=== PATIENT | male | born 1960 | race Caucasian/White ===

== ENCOUNTER 2016-08-25 17:54 | Emergency (ER) | payer MEDICARE, OTHER, SELFPAY ==
--- NOTE | 2016-08-26 01:55 | RAD ---
PORTABLE CHEST: HISTORY: Dyspnea.\ZU\ \N\ FINDINGS: Heart size is borderline. Mediastinal structures are unremarkable. The lungs are clear of infiltra edward. No signs of failure. IMPRESSION: Heart size upper limits of normal. POS: [facility]
--- NOTE | 2016-08-26 01:58 | CT ---
CT OF BRAIN PERFORMED WITHOUT CONTRAST ENHANCEMENT: HISTORY: Weakness and syncope. FINDINGS: The ventricular and cisternal system is within normal limits. There are no signs of intracerebral h emorrhage or extraaxial fluid collections. The mastoid air cells and visualized sinuses appear una r. IMPRESSION: No acute intracranial abnormalities. POS: [facility]
[2016-08-26 09:22] LABS: ALT (SGPT) 14 U/L (0-55); AST (SGOT) 18 U/L (5-34); Albumin 4.2 g/dL (3.5-5.0); Alkaline Phosphatase 91 U/L (40-150); Anion Gap 19 mmol/L (10-20); BUN (Urea Nitrogen) 14 mg/dL (8.4-25.7); Bilirubin, Total 0.3 mg/dL (0.2-1.2); Calc. Creatinine Clearance 0 mL/min (70-130); Calcium 9.6 mg/dL (7.8-10.44); Carbon Dioxide 20 mmol/L (22-29); Chloride 99 mmol/L (98-107); Estimated GFR-MDRD 52; Globulin 3.2 g/dL (2.4-3.5); Glucose 97 mg/dL (70-105); Magnesium 2.4 mg/dL (1.6-2.6); Protein, Total 7.4 g/dL (6.0-8.3); Sodium 134 mmol/L (136-145)
[2016-08-26 09:23] LABS: Troponin I Less than 0.010 ng/mL (< 0.028)
[2016-08-26 09:25] LABS: #Basophils 0.1 thou/uL (0.0-0.2); #Eosinphils 0.2 thou/uL (0.0-0.7); #Lymphocytes 2.3 thou/uL (1.20-3.40); #Monocytes 0.8 thou/uL (0.11-0.59); #Neutrophils 7.4 thou/uL (1.40-6.50); %Basophils 1.1 % (0.0-1.0); %Eosinophils 1.5 % (0.0-10.0); %Monocytes 7.8 % (0.0-10.0); %Neutrophils 68.6 % (42.0-75.0); Hemoglobin 14.8 g/dL (14.0-18.0); Mean Corpuscular HGB CONC 36.2 g/dL (32.0-36.0); Mean Corpuscular Volume 88.2 fl (80.0-94.0); Platelet Count 241 thou/uL (130-400); RBC Distribution Width 11.7 % (11.5-14.5); Red Blood Cell (RBC) Count 4.62 mill/uL (4.70-6.10); White Blood Cell (WBC) Count 10.7 thou/uL (4.8-10.8)
[2016-08-26 09:49] LABS: Bacteria/HPF None Seen HPF (None Seen); Bilirubin Negative (Negative); Blood, Urine Negative (Negative); Clarity Clear (Clear); Glucose, Urine (Dipstick) Negative (Negative); Leukocyte Negative (Negative); Nitrite Negative (Negative); Protein, Urine (Dipstick) Negative (Neg-Trace); RBC/HPF 0-3 HPF (0-3); Squamous Epithelial 0-3 HPF (0-3); Urobilinogen 0.2 mg/dL (0.2-1.0); WBC/HPF 0-3 HPF (0-3); pH, Urine 6.5 (5.0-9.0)
== END 2016-08-25 21:53 | disposition short-term general hospital (02) ==
LOC: MADERS 17:54
DX: R55 Syncope and collapse (principal); E11.9 Type 2 diabetes mellitus without complications; E78.5 Hyperlipidemia, unspecified; I11.0 Hypertensive heart disease with heart failure; I50.9 Heart failure, unspecified; W19.XXXA Unspecified fall, initial encounter
CPT/HCPCS: 36415; 70450; 71010; 80053; 81001; 82553; 83735; 83880; 84443; 84484; 85025

== ENCOUNTER 2016-08-28 06:48 | Outpatient (CLI) | payer MEDICARE, OTHER ==
[2016-08-28 07:09] LABS: #Basophils 0.1 thou/uL (0.0-0.2); #Eosinphils 0.2 thou/uL (0.0-0.7); #Lymphocytes 1.8 thou/uL (1.20-3.40); #Monocytes 0.7 thou/uL (0.11-0.59); #Neutrophils 6.2 thou/uL (1.40-6.50); %Basophils 1.4 % (0.0-1.0); %Eosinophils 2.6 % (0.0-10.0); %Monocytes 7.8 % (0.0-10.0); %Neutrophils 68.3 % (42.0-75.0); Hemoglobin 14.7 g/dL (14.0-18.0); Mean Corpuscular HGB CONC 34.2 g/dL (32.0-36.0); Mean Corpuscular Volume 90.5 fl (80.0-94.0); Mean Platelet Volume 8.9 fL (7.4-10.4); Platelet Count 243 thou/uL (130-400); RBC Distribution Width 12.2 % (11.5-14.5); Red Blood Cell (RBC) Count 4.73 mill/uL (4.70-6.10); White Blood Cell (WBC) Count 9.1 thou/uL (4.8-10.8)
[2016-08-28 07:23] LABS: Hemoglobin A1c 5.5 % (4.0-6.0)
[2016-08-28 07:28] LABS: ALT (SGPT) 11 U/L (0-55); AST (SGOT) 12 U/L (5-34); Albumin 4.2 g/dL (3.5-5.0); Alkaline Phosphatase 95 U/L (40-150); Anion Gap 17 mmol/L (10-20); BUN (Urea Nitrogen) 21 mg/dL (8.4-25.7); Bilirubin, Total 0.4 mg/dL (0.2-1.2); Calc. Creatinine Clearance 0 mL/min (70-130); Calcium 9.4 mg/dL (7.8-10.44); Carbon Dioxide 18 mmol/L (22-29); Cardiac Risk 2.9 (Less than 4.5); Chloride 105 mmol/L (98-107); Cholesterol 194 mg/dL (< 200 Desired); Estimated GFR-MDRD 54; Globulin 2.8 g/dL (2.4-3.5); Glucose 132 mg/dL (70-105); HDL Cholesterol 68 mg/dL (>60 Neg Risk); LDL Cholesterol, Calculated 91 mg/dL; Potassium 4.1 mmol/L (3.5-5.1); Sodium 136 mmol/L (136-145); Triglycerides 174 mg/dL (Less than 150)
[2016-08-28 09:06] LABS: Free T4 (Free Thyroxine) 1.14 ng/dL (0.70-1.48); Thyroid Stimulating Hormone 1.8404 uIU/mL (0.35-4.94)
[2016-08-28 17:59] LABS: Creatinine, Urine 37.36 mg/dL (63-166); Microalbumin Urine 10.2 mg/dL (0.5-50.0)
== END 2016-08-28 06:49 ==
LOC: MADLABBHPM 06:48
PROVIDERS: ATTEND Family Medicine
DX: E11.9 Type 2 diabetes mellitus without complications (principal)
CPT/HCPCS: 36415; 80053; 80061; 82043; 83036; 84439; 84443; 85025

== ENCOUNTER 2016-09-10 18:41 | Emergency (ER) | payer MEDICARE, OTHER ==
[~2016-09-10 18:41] MED LIST: Sodium Chloride 0.9% 1,000 ML BAG ONE
[2016-09-10 19:27] LABS: Bilirubin Negative (Negative); Blood, Urine Negative (Negative); Clarity Clear (Clear); Glucose, Urine (Dipstick) Negative (Negative); Leukocyte Negative (Negative); Nitrite Negative (Negative); Protein, Urine (Dipstick) Negative (Neg-Trace); Urobilinogen 0.2 mg/dL (0.2-1.0); pH, Urine 6.5 (5.0-9.0)
[2016-09-10 19:36] LABS: #Basophils 0.1 thou/uL (0.0-0.2); #Eosinphils 0.3 thou/uL (0.0-0.7); #Monocytes 0.9 thou/uL (0.11-0.59); #Neutrophils 7.6 thou/uL (1.40-6.50); %Basophils 1.2 % (0.0-1.0); %Eosinophils 2.5 % (0.0-10.0); %Lymphocytes 18.2 % (21.0-51.0); %Monocytes 7.9 % (0.0-10.0); %Neutrophils 70.2 % (42.0-75.0); Mean Corpuscular HGB CONC 35.4 g/dL (32.0-36.0); Mean Corpuscular Hemoglobin 31.2 pg (27.0-31.0); Mean Corpuscular Volume 88.1 fl (80.0-94.0); Mean Platelet Volume 8.7 fL (7.4-10.4); Platelet Count 236 thou/uL (130-400); RBC Distribution Width 11.7 % (11.5-14.5); Red Blood Cell (RBC) Count 4.17 mill/uL (4.70-6.10); White Blood Cell (WBC) Count 10.8 thou/uL (4.8-10.8)
[2016-09-10 19:50] LABS: ALT (SGPT) 19 U/L (0-55); AST (SGOT) 23 U/L (5-34); Albumin 4.2 g/dL (3.5-5.0); Alcohol Less than 10 mg/dL (Less than 10); Alkaline Phosphatase 109 U/L (40-150); Anion Gap 17 mmol/L (10-20); BUN (Urea Nitrogen) 11 mg/dL (8.4-25.7); Bilirubin, Total 0.6 mg/dL (0.2-1.2); Calc. Creatinine Clearance 0 mL/min (70-130); Calcium 9.2 mg/dL (7.8-10.44); Carbon Dioxide 21 mmol/L (22-29); Chloride 100 mmol/L (98-107); Estimated GFR-MDRD 56; Globulin 2.4 g/dL (2.4-3.5); Glucose 106 mg/dL (70-105); Potassium 3.6 mmol/L (3.5-5.1); Protein, Total 6.6 g/dL (6.0-8.3); Sodium 134 mmol/L (136-145)
[2016-09-10 19:51] LABS: Cocaine Metabolite Screen Not Detected (NotDetected); Methamphetamine Not Detected (NotDetected); Opiate Screen Not Detected (NotDetected); Phencyclidine (PCP) Not Detected (NotDetected); THC/Cannabinoid Screen Not Detected (NotDetected)
[2016-09-10 19:52] LABS: Amphetamine Not Detected (NotDetected); Barbiturates Screen Not Detected (NotDetected); Benzodiazepine Screen Not Detected (NotDetected); Medtox Control Line Valid? VALID (VALID); Methadone Not Detected (NotDetected); Oxycodone Screen Not Detected (NotDetected); Tricyclic Screen Not Detected (NotDetected)
[2016-09-10] MEDS ORDERED: Potassium Chloride 20 MEQ TAB ONE (19:57)
== END 2016-09-10 22:00 | disposition home or self-care (01) ==
LOC: MADERS 18:41
DX: F32.9 Major depressive disorder, single episode, unspecified (principal); I11.0 Hypertensive heart disease with heart failure; I50.9 Heart failure, unspecified; E78.5 Hyperlipidemia, unspecified; Z79.899 Other long term (current) drug therapy
CPT/HCPCS: 80053; 80306; 80307; 81003; 85025; 93005; 96360; 96361; J7050

== ENCOUNTER 2016-11-08 07:43 | Outpatient (CLI) | payer MEDICARE, OTHER ==
[2016-11-08 08:12] LABS: #Basophils 0.1 thou/uL (0.0-0.2); #Eosinphils 0.2 thou/uL (0.0-0.7); #Lymphocytes 1.1 thou/uL (1.20-3.40); #Monocytes 0.9 thou/uL (0.11-0.59); #Neutrophils 4.6 thou/uL (1.40-6.50); %Eosinophils 2.8 % (0.0-10.0); %Lymphocytes 16.5 % (21.0-51.0); %Monocytes 12.6 % (0.0-10.0); %Neutrophils 67.1 % (42.0-75.0); Hemoglobin 13.5 g/dL (14.0-18.0); Mean Corpuscular HGB CONC 34.8 g/dL (32.0-36.0); Mean Corpuscular Hemoglobin 32.3 pg (27.0-31.0); Mean Corpuscular Volume 92.8 fl (80.0-94.0); Mean Platelet Volume 9.4 fL (7.4-10.4); Platelet Count 133 thou/uL (130-400); RBC Distribution Width 12.9 % (11.5-14.5); Red Blood Cell (RBC) Count 4.19 mill/uL (4.70-6.10); White Blood Cell (WBC) Count 6.9 thou/uL (4.8-10.8)
[2016-11-08 08:15] LABS: Hemoglobin A1c 5.2 % (4.0-6.0)
[2016-11-08 08:24] LABS: ALT (SGPT) 17 U/L (8-55); AST (SGOT) 18 U/L (5-34); Albumin 3.9 g/dL (3.5-5.0); Alkaline Phosphatase 86 U/L (40-150); Anion Gap 15 mmol/L (10-20); BUN (Urea Nitrogen) 19 mg/dL (8.4-25.7); Bilirubin, Total 0.4 mg/dL (0.2-1.2); Calc. Creatinine Clearance 0 mL/min (70-130); Calcium 9.1 mg/dL (7.8-10.44); Carbon Dioxide 23 mmol/L (22-29); Chloride 98 mmol/L (98-107); Cholesterol 127 mg/dL (< 200 Desired); Estimated GFR-MDRD 55; Globulin 2.6 g/dL (2.4-3.5); Glucose 112 mg/dL (70-105); HDL Cholesterol 64 mg/dL (>60 Neg Risk); LDL Cholesterol, Calculated 47 mg/dL; Potassium 4.4 mmol/L (3.5-5.1); Protein, Total 6.5 g/dL (6.0-8.3); Sodium 132 mmol/L (136-145); Triglycerides 79 mg/dL (Less than 150)
[2016-11-08 08:42] LABS: Free T4 (Free Thyroxine) 1.22 ng/dL (0.70-1.48); Thyroid Stimulating Hormone 2.3128 uIU/mL (0.35-4.94)
[2016-11-08 18:12] LABS: Creatinine, Urine 27.79 mg/dL (63-166); Microalbumin Urine 1.5 mg/dL (0.5-50.0)
== END 2016-11-08 07:44 | disposition home or self-care (01) ==
LOC: MADLABBHPM 07:43
PROVIDERS: ATTEND Family Medicine
DX: E11.9 Type 2 diabetes mellitus without complications (principal)
CPT/HCPCS: 36415; 80053; 80061; 82043; 83036; 84439; 84443; 85025

== ENCOUNTER 2016-11-26 02:39 | Emergency (ER) | payer OTHER ==
[2016-11-26 03:29] LABS: #Basophils 0.2 thou/uL (0.0-0.2); #Eosinphils 0.2 thou/uL (0.0-0.7); #Lymphocytes 1.9 thou/uL (1.20-3.40); #Neutrophils 6.8 thou/uL (1.40-6.50); %Basophils 1.7 % (0.0-1.0); %Eosinophils 2.5 % (0.0-10.0); %Lymphocytes 18.7 % (21.0-51.0); %Monocytes 9.8 % (0.0-10.0); %Neutrophils 67.3 % (42.0-75.0); Hemoglobin 12.5 g/dL (14.0-18.0); Mean Corpuscular HGB CONC 35.7 g/dL (32.0-36.0); Mean Corpuscular Hemoglobin 32.2 pg (27.0-31.0); Mean Corpuscular Volume 90.2 fl (80.0-94.0); Mean Platelet Volume 8.1 fL (7.4-10.4); Platelet Count 205 thou/uL (130-400); RBC Distribution Width 11.9 % (11.5-14.5); Red Blood Cell (RBC) Count 3.87 mill/uL (4.70-6.10)
[2016-11-26 03:38] LABS: Clarity Clear (Clear)
[2016-11-26 03:39] LABS: Bilirubin Negative (Negative); Blood, Urine Negative (Negative); Glucose, Urine (Dipstick) Negative (Negative); Leukocyte Negative (Negative); Nitrite Negative (Negative); Protein, Urine (Dipstick) Negative (Neg-Trace); Specific Gravity, Urine 1.001 (1.002-1.036); Urobilinogen 0.2 mg/dL (0.2-1.0); pH, Urine 6.5 (5.0-9.0)
[2016-11-26 03:42] LABS: ALT (SGPT) 21 U/L (8-55); AST (SGOT) 36 U/L (5-34); Acetaminophen Less than 6.0 mcg/mL (10.0-30.0); Albumin 3.8 g/dL (3.5-5.0); Alcohol Less than 10 mg/dL (Less than 10); Alkaline Phosphatase 99 U/L (40-150); Anion Gap 16 mmol/L (10-20); BUN (Urea Nitrogen) 10 mg/dL (8.4-25.7); Bilirubin, Total 0.9 mg/dL (0.2-1.2); Calc. Creatinine Clearance 0 mL/min (70-130); Calcium 9.2 mg/dL (7.8-10.44); Carbon Dioxide 22 mmol/L (22-29); Chloride 98 mmol/L (98-107); Estimated GFR-MDRD 54; Globulin 2.5 g/dL (2.4-3.5); Glucose 76 mg/dL (70-105); Protein, Total 6.3 g/dL (6.0-8.3); Salicylate Less than 8.0 mg/dL (15.0-30.0); Sodium 132 mmol/L (136-145)
[2016-11-26 03:45] LABS: Amphetamine Not Detected (NotDetected); Barbiturates Screen Not Detected (NotDetected); Benzodiazepine Screen Not Detected (NotDetected); Cocaine Metabolite Screen Not Detected (NotDetected); Medtox Control Line Valid? VALID (VALID); Methadone Not Detected (NotDetected); Methamphetamine Not Detected (NotDetected); Opiate Screen Not Detected (NotDetected); Oxycodone Screen Not Detected (NotDetected); Phencyclidine (PCP) Not Detected (NotDetected); THC/Cannabinoid Screen Not Detected (NotDetected); Tricyclic Screen Not Detected (NotDetected)
== END 2016-11-26 07:20 | disposition home or self-care (01) ==
LOC: MADERS 02:39
DX: F32.9 Major depressive disorder, single episode, unspecified (principal); E78.5 Hyperlipidemia, unspecified; I11.0 Hypertensive heart disease with heart failure; I50.9 Heart failure, unspecified; F25.9 Schizoaffective disorder, unspecified
CPT/HCPCS: 80053; 80306; 80307; 81003; 84443; 85025; 93005

== ENCOUNTER 2016-11-27 19:07 | Emergency (ER) | payer OTHER ==
[2016-11-27] MEDS ORDERED: Triple Antibiotic Oint 1 GM Packet ONE (22:40)
== END 2016-11-27 22:50 | disposition home or self-care (01) ==
LOC: MADERS 19:07
DX: S90.812A Abrasion, left foot, initial encounter (principal); S90.811A Abrasion, right foot, initial encounter; E78.5 Hyperlipidemia, unspecified; I11.0 Hypertensive heart disease with heart failure; I50.9 Heart failure, unspecified; F25.9 Schizoaffective disorder, unspecified; X58.XXXA Exposure to other specified factors, initial encounter
CPT/HCPCS: 36416; 99284

== ENCOUNTER 2016-11-30 22:15 | Emergency (ER) | payer OTHER | END 2016-11-30 23:51 | disposition left against medical advice (07) | LOC: MADERS 22:15 | DX: F32.9 Major depressive disorder, single episode, unspecified (principal); N40.0 Benign prostatic hyperplasia without lower urinary tract symptoms; E78.5 Hyperlipidemia, unspecified; I11.0 Hypertensive heart disease with heart failure; I50.9 Heart failure, unspecified; F25.9 Schizoaffective disorder, unspecified | CPT/HCPCS: 36416; 93005; 99283 ==

== ENCOUNTER 2016-12-01 06:38 | Emergency (ER) | payer OTHER ==
[2016-12-01] MEDS ORDERED: Sodium Chloride 0.9% 1,000 ML BAG ONE (07:38)
[2016-12-01 07:45] LABS: #Basophils 0.1 thou/uL (0.0-0.2); #Eosinphils 0.2 thou/uL (0.0-0.7); #Lymphocytes 1.3 thou/uL (1.20-3.40); #Monocytes 0.8 thou/uL (0.11-0.59); #Neutrophils 4.5 thou/uL (1.40-6.50); %Basophils 1.4 % (0.0-1.0); %Eosinophils 2.7 % (0.0-10.0); %Lymphocytes 18.8 % (21.0-51.0); %Monocytes 11.7 % (0.0-10.0); %Neutrophils 65.5 % (42.0-75.0); Hemoglobin 12.9 g/dL (14.0-18.0); Mean Corpuscular HGB CONC 36.1 g/dL (32.0-36.0); Mean Corpuscular Hemoglobin 32.5 pg (27.0-31.0); Mean Corpuscular Volume 89.9 fl (80.0-94.0); Platelet Count 213 thou/uL (130-400); RBC Distribution Width 11.8 % (11.5-14.5); Red Blood Cell (RBC) Count 3.96 mill/uL (4.70-6.10); White Blood Cell (WBC) Count 6.9 thou/uL (4.8-10.8)
[2016-12-01 07:53] LABS: Amphetamine Not Detected (NotDetected); Barbiturates Screen Not Detected (NotDetected); Benzodiazepine Screen Not Detected (NotDetected); Bilirubin Negative (Negative); Blood, Urine Negative (Negative); Clarity Clear (Clear); Cocaine Metabolite Screen Not Detected (NotDetected); Glucose, Urine (Dipstick) Negative (Negative); Leukocyte Negative (Negative); Medtox Control Line Valid? VALID (VALID); Methadone Not Detected (NotDetected); Methamphetamine Not Detected (NotDetected); Nitrite Negative (Negative); Opiate Screen Not Detected (NotDetected); Oxycodone Screen Not Detected (NotDetected); Phencyclidine (PCP) Not Detected (NotDetected); Protein, Urine (Dipstick) 30 mg/dL (Neg-Trace); Specific Gravity, Urine 1.006 (1.002-1.036); THC/Cannabinoid Screen Not Detected (NotDetected); Tricyclic Screen Not Detected (NotDetected); Urobilinogen 0.2 mg/dL (0.2-1.0); pH, Urine 5.5 (5.0-9.0)
[2016-12-01 07:54] LABS: Bacteria/HPF None Seen HPF (None Seen); RBC/HPF 0-3 HPF (0-3); Renal Epithelial 0-3 HPF (0-3); Squamous Epithelial 0-3 HPF (0-3); Transitional Epithelial 0-3 HPF (0-3); WBC/HPF 0-3 HPF (0-3)
[2016-12-01 07:58] LABS: Acetaminophen Less than 6.0 mcg/mL (10.0-30.0); Alcohol Less than 10 mg/dL (Less than 10); Salicylate Less than 8.0 mg/dL (15.0-30.0)
[2016-12-01 08:00] LABS: ALT (SGPT) 23 U/L (8-55); AST (SGOT) 35 U/L (5-34); Alkaline Phosphatase 101 U/L (40-150); Anion Gap 18 mmol/L (10-20); BUN (Urea Nitrogen) 11 mg/dL (8.4-25.7); Bilirubin, Total 0.9 mg/dL (0.2-1.2); Calc. Creatinine Clearance 0 mL/min (70-130); Calcium 9.5 mg/dL (7.8-10.44); Carbon Dioxide 20 mmol/L (22-29); Chloride 97 mmol/L (98-107); Estimated GFR-MDRD 47; Globulin 2.6 g/dL (2.4-3.5); Glucose 93 mg/dL (70-105); Potassium 3.8 mmol/L (3.5-5.1); Protein, Total 6.6 g/dL (6.0-8.3); Sodium 131 mmol/L (136-145)
[2016-12-01] MEDS ORDERED: Acetaminophen 325 MG TAB ONE (08:49)
== END 2016-12-01 13:55 ==
LOC: MADERS 06:38
DX: R45.851 Suicidal ideations (principal); E78.5 Hyperlipidemia, unspecified; I11.0 Hypertensive heart disease with heart failure; I50.9 Heart failure, unspecified; F25.9 Schizoaffective disorder, unspecified; Z79.899 Other long term (current) drug therapy
CPT/HCPCS: 36415; 36416; 80053; 80306; 80307; 81003; 81015; 84443; 85025; 96360; J7050

== ENCOUNTER 2016-12-14 05:18 | Emergency (ER) | payer MEDICARE, OTHER ==
[2016-12-14 06:04] LABS: #Basophils 0.1 thou/uL (0.0-0.2); #Eosinphils 0.1 thou/uL (0.0-0.7); #Lymphocytes 1.2 thou/uL (1.20-3.40); #Monocytes 0.9 thou/uL (0.11-0.59); %Basophils 1.5 % (0.0-1.0); %Eosinophils 1.7 % (0.0-10.0); %Lymphocytes 16.8 % (21.0-51.0); %Monocytes 11.6 % (0.0-10.0); %Neutrophils 68.4 % (42.0-75.0); Hemoglobin 13.4 g/dL (14.0-18.0); Mean Corpuscular HGB CONC 35.1 g/dL (32.0-36.0); Mean Corpuscular Hemoglobin 31.9 pg (27.0-31.0); Mean Corpuscular Volume 90.8 fl (80.0-94.0); Mean Platelet Volume 8.1 fL (7.4-10.4); Platelet Count 183 thou/uL (130-400); Red Blood Cell (RBC) Count 4.21 mill/uL (4.70-6.10); White Blood Cell (WBC) Count 7.3 thou/uL (4.8-10.8)
[2016-12-14 06:20] LABS: ALT (SGPT) 17 U/L (8-55); AST (SGOT) 20 U/L (5-34); Acetaminophen Less than 6.0 mcg/mL (10.0-30.0); Albumin 3.8 g/dL (3.5-5.0); Alcohol 52 mg/dL (Less than 10); Alkaline Phosphatase 76 U/L (40-150); Anion Gap 16 mmol/L (10-20); BUN (Urea Nitrogen) 10 mg/dL (8.4-25.7); Bilirubin, Total Less than 0.3 mg/dL (0.2-1.2); Calc. Creatinine Clearance 0 mL/min (70-130); Calcium 8.9 mg/dL (7.8-10.44); Carbon Dioxide 20 mmol/L (22-29); Chloride 100 mmol/L (98-107); Estimated GFR-MDRD 73; Glucose 104 mg/dL (70-105); Potassium 4.1 mmol/L (3.5-5.1); Protein, Total 6.8 g/dL (6.0-8.3); Salicylate Less than 8.0 mg/dL (15.0-30.0); Sodium 132 mmol/L (136-145)
[2016-12-14 06:41] LABS: Clarity Clear (Clear)
[2016-12-14 06:42] LABS: Amphetamine Not Detected (NotDetected); Benzodiazepine Screen Not Detected (NotDetected); Bilirubin Negative (Negative); Blood, Urine Negative (Negative); Cocaine Metabolite Screen Not Detected (NotDetected); Glucose, Urine (Dipstick) Negative (Negative); Leukocyte Negative (Negative); Methamphetamine Not Detected (NotDetected); Nitrite Negative (Negative); Opiate Screen Not Detected (NotDetected); Phencyclidine (PCP) Not Detected (NotDetected); Protein, Urine (Dipstick) Negative (Neg-Trace); THC/Cannabinoid Screen Not Detected (NotDetected); Tricyclic Screen Not Detected (NotDetected); Urobilinogen 0.2 mg/dL (0.2-1.0)
[2016-12-14 06:43] LABS: Barbiturates Screen Not Detected (NotDetected); Medtox Control Line Valid? VALID (VALID); Methadone Not Detected (NotDetected); Oxycodone Screen Not Detected (NotDetected)
--- NOTE | 2016-12-14 12:55 | RAD ---
UPRIGHT PORTABLE CHEST 1 VIEW: Date: 12/14/16 HISTORY: 56-year-old male follow-up chest pain, weakness, and syncope. COMPARISON: 08/25/16. FINDINGS: Heart size is within normal limits. The lungs are clear. IMPRESSION: No acute intrathoracic disease. No evidence for pneumonia. POS: [facility]
== END 2016-12-14 14:29 ==
LOC: MADERS 05:18
DX: F32.9 Major depressive disorder, single episode, unspecified (principal); F10.10 Alcohol abuse, uncomplicated; F41.9 Anxiety disorder, unspecified; N40.0 Benign prostatic hyperplasia without lower urinary tract symptoms; I50.9 Heart failure, unspecified; I13.0 Hypertensive heart and chronic kidney disease with heart failure and stage 1 through stage 4 chronic kidney disease, or unspecified chronic kidney disease; E11.22 Type 2 diabetes mellitus with diabetic chronic kidney disease; N18.2 Chronic kidney disease, stage 2 (mild); E03.9 Hypothyroidism, unspecified; F25.9 Schizoaffective disorder, unspecified; Y90.2 Blood alcohol level of 40-59 mg/100 ml; E78.5 Hyperlipidemia, unspecified; Z98.890 Other specified postprocedural states
CPT/HCPCS: 36415; 71010; 80053; 80306; 80307; 81003; 83880; 85025; 93005

== ENCOUNTER 2017-02-11 09:36 | Outpatient (CLI) | payer MEDICARE, OTHER ==
[2017-02-11 10:13] LABS: Hemoglobin A1c 5.4 % (4.0-6.0)
[2017-02-11 10:27] LABS: ALT (SGPT) 10 U/L (8-55); AST (SGOT) 12 U/L (5-34); Albumin 3.9 g/dL (3.5-5.0); Alkaline Phosphatase 62 U/L (40-150); Anion Gap 13 mmol/L (10-20); BUN (Urea Nitrogen) 10 mg/dL (8.4-25.7); Bilirubin, Total 0.3 mg/dL (0.2-1.2); Calc. Creatinine Clearance 0 mL/min (70-130); Calcium 9.1 mg/dL (7.8-10.44); Carbon Dioxide 26 mmol/L (22-29); Chloride 94 mmol/L (98-107); Estimated GFR-MDRD 58; Globulin 2.8 g/dL (2.4-3.5); Glucose 106 mg/dL (70-105); Potassium 4.4 mmol/L (3.5-5.1); Protein, Total 6.7 g/dL (6.0-8.3); Sodium 129 mmol/L (136-145)
[2017-02-11 16:50] LABS: Valproic Acid (Depakene) 97.4 ug/mL (50.0-100.0)
== END 2017-02-11 09:37 | disposition home or self-care (01) ==
LOC: MADLABBHPM 09:36
PROVIDERS: ATTEND Family Medicine
DX: E03.9 Hypothyroidism, unspecified (principal); F20.9 Schizophrenia, unspecified
CPT/HCPCS: 36415; 80053; 80164; 83036; 84443

== ENCOUNTER 2017-02-17 14:25 | Outpatient (CLI) | payer MEDICARE, OTHER ==
[2017-02-17 14:55] LABS: Hemoglobin A1c 5.4 % (4.0-6.0)
[2017-02-17 15:42] LABS: ALT (SGPT) 11 U/L (8-55); AST (SGOT) 13 U/L (5-34); Albumin 3.9 g/dL (3.5-5.0); Alkaline Phosphatase 66 U/L (40-150); Anion Gap 13 mmol/L (10-20); BUN (Urea Nitrogen) 12 mg/dL (8.4-25.7); Bilirubin, Total 0.3 mg/dL (0.2-1.2); Calc. Creatinine Clearance 0 mL/min (70-130); Calcium 8.8 mg/dL (7.8-10.44); Carbon Dioxide 26 mmol/L (22-29); Cardiac Risk 2.3 (Less than 4.5); Chloride 91 mmol/L (98-107); Cholesterol 157 mg/dl (< 200 Desired); Estimated GFR-MDRD 56; Globulin 2.9 g/dL (2.4-3.5); Glucose 91 mg/dL (70-105); HDL Cholesterol 69 mg/dL (>60 Neg Risk); LDL Cholesterol, Calculated 44 mg/dL; Potassium 4.6 mmol/L (3.5-5.1); Protein, Total 6.8 g/dL (6.0-8.3); Sodium 125 mmol/L (136-145); Triglycerides 218 mg/dL (Less than 150)
[2017-02-18 18:41] LABS: Creatinine, Urine 24.49 mg/dL (63-166); Microalbumin Urine 1.3 mg/dL (0.5-50.0); Microalbumin/Creat Ratio 53.1 mg/g (Less than 30)
== END 2017-02-17 14:26 | disposition home or self-care (01) ==
LOC: MADLABBHPM 14:25
PROVIDERS: ATTEND Family Medicine
DX: E11.9 Type 2 diabetes mellitus without complications (principal); E78.5 Hyperlipidemia, unspecified; E03.9 Hypothyroidism, unspecified; E87.1 Hypo-osmolality and hyponatremia
CPT/HCPCS: 36415; 80053; 80061; 82043; 83036; 84443

== ENCOUNTER 2017-02-20 11:01 | Emergency (ER) | payer MEDICARE, OTHER ==
[2017-02-20 12:23] LABS: #Basophils 0.1 thou/uL (0.0-0.2); #Eosinphils 0.2 thou/uL (0.0-0.7); #Lymphocytes 1.5 thou/uL (1.20-3.40); #Monocytes 1.1 thou/uL (0.11-0.59); #Neutrophils 6.7 thou/uL (1.40-6.50); %Basophils 1.1 % (0.0-1.0); %Eosinophils 2.5 % (0.0-10.0); %Lymphocytes 15.8 % (21.0-51.0); %Neutrophils 69.7 % (42.0-75.0); Hemoglobin 12.9 g/dL (14.0-18.0); Mean Corpuscular HGB CONC 34.1 g/dL (32.0-36.0); Mean Corpuscular Hemoglobin 31.1 pg (27.0-31.0); Mean Corpuscular Volume 91.1 fl (80.0-94.0); Mean Platelet Volume 7.3 fL (7.4-10.4); Platelet Count 173 thou/uL (130-400); RBC Distribution Width 12.6 % (11.5-14.5); Red Blood Cell (RBC) Count 4.17 mill/uL (4.70-6.10); White Blood Cell (WBC) Count 9.6 thou/uL (4.8-10.8)
[2017-02-20 12:23] LABS: Clarity Clear (Clear); Glucose, Urine (Dipstick) Negative (Negative); Leukocyte Negative (Negative); Nitrite Negative (Negative); Protein, Urine (Dipstick) Negative (Neg-Trace); pH, Urine 6.5 (5.0-9.0)
[2017-02-20 12:24] LABS: Bilirubin Negative (Negative); Blood, Urine Trace (Negative); Urobilinogen 0.2 mg/dL (0.2-1.0)
[2017-02-20 12:25] LABS: Bacteria/HPF Rare-Few HPF (None Seen); RBC/HPF 0-3 HPF (0-3); Squamous Epithelial 0-3 HPF (0-3); WBC/HPF 0-3 HPF (0-3)
[2017-02-20 12:27] LABS: PTT 27.7 SEC (22.9-36.1)
[2017-02-20 12:37] LABS: ALT (SGPT) 12 U/L (8-55); AST (SGOT) 13 U/L (5-34); Albumin 3.7 g/dL (3.5-5.0); Alkaline Phosphatase 63 U/L (40-150); Anion Gap 15 mmol/L (10-20); BUN (Urea Nitrogen) 11 mg/dL (8.4-25.7); Bilirubin, Total Less than 0.3 mg/dL (0.2-1.2); CK (CPK) 183 U/L (30-200); Calc. Creatinine Clearance 0 mL/min (70-130); Calcium 8.5 mg/dL (7.8-10.44); Carbon Dioxide 23 mmol/L (22-29); Chloride 95 mmol/L (98-107); Estimated GFR-MDRD 51; Globulin 2.8 g/dL (2.4-3.5); Glucose 108 mg/dL (70-105); Potassium 4.6 mmol/L (3.5-5.1); Protein, Total 6.5 g/dL (6.0-8.3); Sodium 128 mmol/L (136-145)
[2017-02-20 12:43] LABS: CKMB 3.2 ng/mL (0-6.6); Troponin I Less than 0.010 ng/mL (< 0.028)
--- NOTE | 2017-02-20 12:44 | RAD ---
RADIOGRAPH CHEST 1 VIEW: HISTORY: A 57-year-old male with dyspnea. FINDINGS: There are no air space densities, pulmonary edema, pneumothorax, or cardiomegaly. The lateral costo phrenic angles are sharp. IMPRESSION: No acute cardiopulmonary findings. lalo [] POS: [facility]
== END 2017-02-20 13:50 | disposition home or self-care (01) ==
LOC: MADERS 11:01
DX: I13.0 Hypertensive heart and chronic kidney disease with heart failure and stage 1 through stage 4 chronic kidney disease, or unspecified chronic kidney disease (principal); N18.9 Chronic kidney disease, unspecified; D64.9 Anemia, unspecified; E87.1 Hypo-osmolality and hyponatremia; I50.9 Heart failure, unspecified; E78.5 Hyperlipidemia, unspecified
CPT/HCPCS: 36416; 71010; 80053; 81001; 82550; 82553; 83880; 84443; 84484; 85025; 85610; 85730; 87086; 93005

== ENCOUNTER 2017-02-27 08:07 | Outpatient (CLI) | payer MEDICARE, OTHER ==
[2017-02-27 09:19] LABS: Hemoglobin A1c 5.3 % (4.0-6.0)
[2017-02-27 09:28] LABS: ALT (SGPT) 14 U/L (8-55); AST (SGOT) 16 U/L (5-34); Alkaline Phosphatase 64 U/L (40-150); Anion Gap 14 mmol/L (10-20); BUN (Urea Nitrogen) 8 mg/dL (8.4-25.7); Bilirubin, Total 0.7 mg/dL (0.2-1.2); Calc. Creatinine Clearance 0 mL/min (70-130); Calcium 9.1 mg/dL (7.8-10.44); Carbon Dioxide 22 mmol/L (22-29); Chloride 93 mmol/L (98-107); Cholesterol 166 mg/dl (< 200 Desired); Estimated GFR-MDRD 52; Globulin 2.2 g/dL (2.4-3.5); Glucose 118 mg/dL (70-105); HDL Cholesterol 84 mg/dL (>60 Neg Risk); LDL Cholesterol, Calculated 69 mg/dL; Potassium 4.1 mmol/L (3.5-5.1); Protein, Total 6.2 g/dL (6.0-8.3); Sodium 125 mmol/L (136-145); Triglycerides 64 mg/dL (Less than 150)
[2017-02-27 17:14] LABS: Creatinine, Urine 27.96 mg/dL (63-166); Microalbumin Urine 2.1 mg/dL (0.5-50.0); Microalbumin/Creat Ratio 75.1 mg/g (Less than 30)
== END 2017-02-27 08:08 | disposition home or self-care (01) ==
LOC: MADLABBHPM 08:07
PROVIDERS: ATTEND Family Medicine
DX: E11.9 Type 2 diabetes mellitus without complications (principal); E78.5 Hyperlipidemia, unspecified; E03.9 Hypothyroidism, unspecified
CPT/HCPCS: 80053; 80061; 82043; 83036; 84443

== ENCOUNTER 2017-02-27 17:58 | Emergency (ER) | payer MEDICARE, OTHER ==
[~2017-02-27 17:58] MED LIST changes: -Sodium Chloride 0.9% 1,000 ML BAG ONE; +Sodium Chloride 0.9% 500 ML BAG ONE
[2017-02-27 18:58] LABS: Bilirubin Negative (Negative); Blood, Urine Negative (Negative); Clarity Clear (Clear); Glucose, Urine (Dipstick) Negative (Negative); Leukocyte Negative (Negative); Nitrite Negative (Negative); Protein, Urine (Dipstick) Negative (Neg-Trace); Urobilinogen 0.2 mg/dL (0.2-1.0)
[2017-02-27 19:09] LABS: #Basophils 0.1 thou/uL (0.0-0.2); #Eosinphils 0.1 thou/uL (0.0-0.7); #Lymphocytes 1.6 thou/uL (1.20-3.40); #Neutrophils 6.8 thou/uL (1.40-6.50); %Basophils 0.5 % (0.0-1.0); %Eosinophils 0.9 % (0.0-10.0); %Lymphocytes 16.5 % (21.0-51.0); %Monocytes 10.4 % (0.0-10.0); %Neutrophils 71.7 % (42.0-75.0); Hemoglobin 12.1 g/dL (14.0-18.0); Mean Corpuscular HGB CONC 34.4 g/dL (32.0-36.0); Mean Corpuscular Hemoglobin 30.9 pg (27.0-31.0); Mean Platelet Volume 6.7 fL (7.4-10.4); Platelet Count 172 thou/uL (130-400); RBC Distribution Width 11.7 % (11.5-14.5); White Blood Cell (WBC) Count 9.5 thou/uL (4.8-10.8)
[2017-02-27 19:25] LABS: ALT (SGPT) 14 U/L (8-55); AST (SGOT) 15 U/L (5-34); Albumin 3.9 g/dL (3.5-5.0); Alkaline Phosphatase 63 U/L (40-150); Anion Gap 15 mmol/L (10-20); BUN (Urea Nitrogen) 7 mg/dL (8.4-25.7); Bilirubin, Total 0.5 mg/dL (0.2-1.2); Calc. Creatinine Clearance 0 mL/min (70-130); Calcium 8.9 mg/dL (7.8-10.44); Carbon Dioxide 21 mmol/L (22-29); Chloride 90 mmol/L (98-107); Estimated GFR-MDRD 56; Globulin 2.8 g/dL (2.4-3.5); Glucose 105 mg/dL (70-105); Protein, Total 6.7 g/dL (6.0-8.3); Sodium 122 mmol/L (136-145)
== END 2017-02-27 20:23 | disposition short-term general hospital (02) ==
LOC: MADERS 17:58
DX: E87.1 Hypo-osmolality and hyponatremia (principal); I11.0 Hypertensive heart disease with heart failure; I50.9 Heart failure, unspecified; E78.5 Hyperlipidemia, unspecified; N40.0 Benign prostatic hyperplasia without lower urinary tract symptoms; Z79.899 Other long term (current) drug therapy; Z79.4 Long term (current) use of insulin
CPT/HCPCS: 36416; 81003; 84443; 85025; 96360; 36415-59; J7050

== ENCOUNTER 2017-03-15 19:50 | Emergency (ER) | payer OTHER, MEDICARE ==
[2017-03-15 21:32] LABS: #Basophils 0.1 thou/uL (0.0-0.2); #Eosinphils 0.2 thou/uL (0.0-0.7); #Lymphocytes 2.1 thou/uL (1.20-3.40); #Monocytes 0.8 thou/uL (0.11-0.59); #Neutrophils 5.2 thou/uL (1.40-6.50); %Basophils 1.1 % (0.0-1.0); %Eosinophils 2.8 % (0.0-10.0); %Lymphocytes 24.5 % (21.0-51.0); %Monocytes 9.6 % (0.0-10.0); %Neutrophils 61.9 % (42.0-75.0); Hemoglobin 12.5 g/dL (14.0-18.0); Mean Corpuscular HGB CONC 34.9 g/dL (32.0-36.0); Mean Corpuscular Hemoglobin 31.4 pg (27.0-31.0); Mean Corpuscular Volume 90.1 fl (80.0-94.0); Mean Platelet Volume 8.6 fL (7.4-10.4); Platelet Count 200 thou/uL (130-400); RBC Distribution Width 11.8 % (11.5-14.5); Red Blood Cell (RBC) Count 3.98 mill/uL (4.70-6.10); White Blood Cell (WBC) Count 8.4 thou/uL (4.8-10.8)
[2017-03-15 21:36] LABS: ALT (SGPT) 19 U/L (8-55); AST (SGOT) 21 U/L (5-34); Alkaline Phosphatase 67 U/L (40-150); Anion Gap 16 mmol/L (10-20); BUN (Urea Nitrogen) 11 mg/dL (8.4-25.7); Bilirubin, Total 0.3 mg/dL (0.2-1.2); Calc. Creatinine Clearance 0 mL/min (70-130); Calcium 9.2 mg/dL (7.8-10.44); Carbon Dioxide 21 mmol/L (22-29); Chloride 95 mmol/L (98-107); Estimated GFR-MDRD 50; Glucose 85 mg/dL (70-105); Potassium 4.1 mmol/L (3.5-5.1); Sodium 128 mmol/L (136-145)
[2017-03-15 21:48] LABS: Phencyclidine (PCP) Not Detected (NotDetected); THC/Cannabinoid Screen Not Detected (NotDetected)
[2017-03-15 21:49] LABS: Amphetamine Not Detected (NotDetected); Barbiturates Screen Not Detected (NotDetected); Benzodiazepine Screen Not Detected (NotDetected); Bilirubin Negative (Negative); Blood, Urine Negative (Negative); Clarity Clear (Clear); Cocaine Metabolite Screen Not Detected (NotDetected); Glucose, Urine (Dipstick) Negative (Negative); Leukocyte Negative (Negative); Medtox Control Line Valid? VALID (VALID); Methadone Not Detected (NotDetected); Methamphetamine Not Detected (NotDetected); Nitrite Negative (Negative); Opiate Screen Not Detected (NotDetected); Oxycodone Screen Not Detected (NotDetected); Protein, Urine (Dipstick) Negative (Neg-Trace); Tricyclic Screen Not Detected (NotDetected); Urobilinogen 0.2 mg/dL (0.2-1.0); pH, Urine 6.5 (5.0-9.0)
[2017-03-15 21:50] LABS: Specific Gravity, Urine 1.005 (1.002-1.036)
== END 2017-03-15 21:55 | disposition home or self-care (01) ==
LOC: MADERS 19:50
DX: F41.9 Anxiety disorder, unspecified (principal); E87.1 Hypo-osmolality and hyponatremia; E78.5 Hyperlipidemia, unspecified; I11.0 Hypertensive heart disease with heart failure; I50.9 Heart failure, unspecified; Z79.82 Long term (current) use of aspirin; Z79.899 Other long term (current) drug therapy
CPT/HCPCS: 36416; 80053; 80306; 81003; 85025; 93005; 36415-59

== ENCOUNTER 2017-03-17 21:39 | Emergency (ER) | payer OTHER, MEDICARE ==
--- NOTE | 2017-03-17 22:34 | RAD ---
CHEST ONE VIEW: History: Chest pain. Comparison: 02-20-17 FINDINGS: Cardiac silhouette is magnified by projection. Pulmonary vasculature is unremarkable. Mediastinum is midline. There is no confluent airspace consolidation or evidence of pneumothorax. manufacturing supervisor 2nd shift leads overlie the chest. IMPRESSION: No active cardiopulmonary abnormalities are demonstrated. POS: [facility]
[2017-03-17 22:36] LABS: #Basophils 0.2 thou/uL (0.0-0.2); #Eosinphils 0.2 thou/uL (0.0-0.7); #Lymphocytes 2.2 thou/uL (1.20-3.40); #Monocytes 1.3 thou/uL (0.11-0.59); #Neutrophils 8.3 thou/uL (1.40-6.50); %Basophils 1.3 % (0.0-1.0); %Lymphocytes 18.3 % (21.0-51.0); %Monocytes 10.4 % (0.0-10.0); Hemoglobin 12.5 g/dL (14.0-18.0); Mean Corpuscular HGB CONC 34.2 g/dL (32.0-36.0); Mean Corpuscular Hemoglobin 31.2 pg (27.0-31.0); Mean Corpuscular Volume 91.4 fl (80.0-94.0); Mean Platelet Volume 7.6 fL (7.4-10.4); Platelet Count 240 thou/uL (130-400); RBC Distribution Width 12.3 % (11.5-14.5); Red Blood Cell (RBC) Count 3.99 mill/uL (4.70-6.10); White Blood Cell (WBC) Count 12.2 thou/uL (4.8-10.8)
[2017-03-17 22:39] LABS: INR-International Normal Ratio 0.9; PTT 25.2 SEC (22.9-36.1); Prothrombin Time 12.7 SEC (12.0-14.7)
[2017-03-17 22:49] LABS: ALT (SGPT) 30 U/L (8-55); AST (SGOT) 27 U/L (5-34); Alkaline Phosphatase 75 U/L (40-150); Anion Gap 16 mmol/L (10-20); BUN (Urea Nitrogen) 13 mg/dL (8.4-25.7); Bilirubin, Total 0.3 mg/dL (0.2-1.2); Calc. Creatinine Clearance 0 mL/min (70-130); Calcium 9.4 mg/dL (7.8-10.44); Carbon Dioxide 25 mmol/L (22-29); Chloride 95 mmol/L (98-107); Estimated GFR-MDRD 52; Globulin 3.2 g/dL (2.4-3.5); Glucose 111 mg/dL (70-105); Potassium 4.3 mmol/L (3.5-5.1); Protein, Total 7.2 g/dL (6.0-8.3); Sodium 132 mmol/L (136-145)
[2017-03-17 22:54] LABS: Bilirubin Negative (Negative); Blood, Urine Negative (Negative); Clarity Clear (Clear); Glucose, Urine (Dipstick) 100 mg/dL (Negative); Leukocyte Negative (Negative); Nitrite Negative (Negative); Protein, Urine (Dipstick) Negative (Neg-Trace); Urobilinogen 0.2 mg/dL (0.2-1.0)
[2017-03-17 22:56] LABS: CKMB 5.6 ng/mL (0-6.6); Troponin I Less than 0.010 ng/mL (< 0.028)
== END 2017-03-17 23:05 | disposition home or self-care (01) ==
LOC: MADERS 21:39
DX: R00.2 Palpitations (principal); E78.5 Hyperlipidemia, unspecified; I11.0 Hypertensive heart disease with heart failure; I50.9 Heart failure, unspecified; F25.9 Schizoaffective disorder, unspecified; Z79.82 Long term (current) use of aspirin; Z79.84 Long term (current) use of oral hypoglycemic drugs; Z79.899 Other long term (current) drug therapy
CPT/HCPCS: 71010; 80053; 81003; 82553; 84443; 84484; 85025; 85610; 85730; 93005; 94760; 36415-59

== ENCOUNTER 2017-03-18 14:33 | Emergency (ER) | payer OTHER, MEDICARE ==
[2017-03-18 16:20] LABS: #Basophils 0.1 thou/uL (0.0-0.2); #Eosinphils 0.1 thou/uL (0.0-0.7); #Lymphocytes 1.6 thou/uL (1.20-3.40); #Neutrophils 9.5 thou/uL (1.40-6.50); %Basophils 0.9 % (0.0-1.0); %Eosinophils 1.1 % (0.0-10.0); %Lymphocytes 12.6 % (21.0-51.0); %Monocytes 8.4 % (0.0-10.0); Hemoglobin 12.9 g/dL (14.0-18.0); Mean Corpuscular HGB CONC 33.8 g/dL (32.0-36.0); Mean Corpuscular Volume 91.6 fl (80.0-94.0); Mean Platelet Volume 6.9 fL (7.4-10.4); Platelet Count 256 thou/uL (130-400); RBC Distribution Width 12.2 % (11.5-14.5); Red Blood Cell (RBC) Count 4.16 mill/uL (4.70-6.10); White Blood Cell (WBC) Count 12.4 thou/uL (4.8-10.8)
[2017-03-18 16:32] LABS: Alcohol Less than 10 mg/dL (Less than 10); Anion Gap 17 mmol/L (10-20); BUN (Urea Nitrogen) 16 mg/dL (8.4-25.7); Calc. Creatinine Clearance 0 mL/min (70-130); Calcium 9.5 mg/dL (7.8-10.44); Carbon Dioxide 23 mmol/L (22-29); Chloride 96 mmol/L (98-107); Estimated GFR-MDRD 61; Glucose 118 mg/dL (70-105); Potassium 4.3 mmol/L (3.5-5.1); Sodium 132 mmol/L (136-145)
[2017-03-18 16:34] LABS: Amphetamine Not Detected (NotDetected); Barbiturates Screen Not Detected (NotDetected); Benzodiazepine Screen Not Detected (NotDetected); Cocaine Metabolite Screen Not Detected (NotDetected); Medtox Control Line Valid? VALID (VALID); Methadone Not Detected (NotDetected); Methamphetamine Not Detected (NotDetected); Opiate Screen Not Detected (NotDetected); Oxycodone Screen Not Detected (NotDetected); Phencyclidine (PCP) Not Detected (NotDetected); THC/Cannabinoid Screen Not Detected (NotDetected); Tricyclic Screen Not Detected (NotDetected)
== END 2017-03-18 18:45 | disposition home or self-care (01) ==
LOC: MADERS 14:33
DX: F32.9 Major depressive disorder, single episode, unspecified (principal); Z91.14 Patient's other noncompliance with medication regimen; I11.0 Hypertensive heart disease with heart failure; I50.9 Heart failure, unspecified; E78.5 Hyperlipidemia, unspecified; F25.9 Schizoaffective disorder, unspecified
CPT/HCPCS: 36415; 80048; 80306; 80307; 84443; 85025

== ENCOUNTER 2017-03-18 22:59 | Emergency (ER) | payer OTHER, MEDICARE ==
[2017-03-18] MEDS ORDERED: Ibuprofen 800 MG TAB ONE (23:18)
[2017-03-18] MEDS ORDERED: Acetaminophen 500 MG TAB ONE (23:18)
[2017-03-18 23:52] LABS: Amphetamine Not Detected (NotDetected); Barbiturates Screen Not Detected (NotDetected); Benzodiazepine Screen Not Detected (NotDetected); Cocaine Metabolite Screen Not Detected (NotDetected); Medtox Control Line Valid? VALID (VALID); Methadone Not Detected (NotDetected); Methamphetamine Not Detected (NotDetected); Opiate Screen Not Detected (NotDetected); Oxycodone Screen Not Detected (NotDetected); Phencyclidine (PCP) Not Detected (NotDetected); THC/Cannabinoid Screen Not Detected (NotDetected); Tricyclic Screen Not Detected (NotDetected)
== END 2017-03-19 01:22 | disposition home or self-care (01) ==
LOC: MADERS 22:59
DX: S80.02XA Contusion of left knee, initial encounter (principal); I11.0 Hypertensive heart disease with heart failure; I50.9 Heart failure, unspecified; E78.5 Hyperlipidemia, unspecified; F25.9 Schizoaffective disorder, unspecified; Z76.5 Malingerer [conscious simulation]; X58.XXXA Exposure to other specified factors, initial encounter
CPT/HCPCS: 36415; 80048; 80306; 80307; 84443; 85025; 99284; 99285

== ENCOUNTER 2017-12-09 15:39 | Outpatient (CLI) | payer OTHER ==
[2017-12-09 17:53] LABS: Bilirubin Negative (Negative); Blood, Urine Small (Negative); Clarity Slightly Cloudy (Clear); Glucose, Urine (Dipstick) Negative (Negative); Leukocyte Large (Negative); Nitrite Negative (Negative); Protein, Urine (Dipstick) 30 mg/dL (Neg-Trace); Urobilinogen 0.2 mg/dL (0.2-1.0)
[2017-12-09 18:30] LABS: Bacteria/HPF 2+ HPF (None Seen); Sperm/HPF 1+ HPF (None Seen); Squamous Epithelial None Seen HPF (0-3)
== END 2017-12-09 15:40 | disposition home or self-care (01) ==
LOC: MADLAB 15:39
PROVIDERS: ATTEND Urology
DX: N40.1 Benign prostatic hyperplasia with lower urinary tract symptoms (principal)
CPT/HCPCS: 81001; 87077; 87086; 87186

== ENCOUNTER 2018-01-22 11:57 | Emergency (ER) | payer OTHER ==
[~2018-01-22 11:57] MED LIST changes: +Sodium Chloride 0.9% 1,000 ML BAG ONE; -Sodium Chloride 0.9% 500 ML BAG ONE
[2018-01-22 12:44] LABS: #Basophils 0.1 thou/uL (0.0-0.2); #Eosinphils 0.2 thou/uL (0.0-0.7); #Lymphocytes 1.6 thou/uL (1.20-3.40); #Monocytes 0.6 thou/uL (0.11-0.59); #Neutrophils 5.3 thou/uL (1.40-6.50); %Basophils 1.2 % (0.0-1.0); %Eosinophils 2.4 % (0.0-10.0); %Lymphocytes 20.6 % (21.0-51.0); %Monocytes 7.3 % (0.0-10.0); %Neutrophils 68.5 % (42.0-75.0); Hemoglobin 13.5 g/dL (14.0-18.0); Mean Corpuscular HGB CONC 35.1 g/dL (32.0-36.0); Mean Corpuscular Hemoglobin 31.1 pg (27.0-31.0); Mean Corpuscular Volume 88.6 fL (78.0-98.0); Mean Platelet Volume 6.5 fL (7.4-10.4); Platelet Count 198 thou/uL (130-400); RBC Distribution Width 11.8 % (11.5-14.5); Red Blood Cell (RBC) Count 4.36 mill/uL (4.70-6.10); White Blood Cell (WBC) Count 7.7 thou/uL (4.8-10.8)
[2018-01-22 12:59] LABS: Bilirubin Negative (Negative); Blood, Urine Moderate (Negative); Glucose, Urine (Dipstick) Negative (Negative); Leukocyte Large (Negative); Nitrite Negative (Negative); Protein, Urine (Dipstick) 100 mg/dL (Neg-Trace); Specific Gravity, Urine 1.015 (1.005-1.030); Urobilinogen 0.2 mg/dL (0.2-1.0); pH, Urine 7.5 (5.0-9.0)
[2018-01-22 13:00] LABS: Clarity Slightly Cloudy (Clear)
[2018-01-22 13:04] LABS: Bacteria/HPF 3+ HPF (None Seen); Squamous Epithelial 0-3 HPF (0-3)
[2018-01-22 13:05] LABS: ALT (SGPT) 12 U/L (8-55); AST (SGOT) 9 U/L (5-34); Albumin 3.9 g/dL (3.5-5.0); Alkaline Phosphatase 66 U/L (40-150); Anion Gap 15 mmol/L (10-20); BUN (Urea Nitrogen) 11 mg/dL (8.4-25.7); Bilirubin, Total 0.3 mg/dL (0.2-1.2); Calc. Creatinine Clearance 0 mL/min (70-130); Calcium 9.5 mg/dL (7.8-10.44); Carbon Dioxide 25 mmol/L (22-29); Chloride 102 mmol/L (98-107); Estimated GFR-MDRD 53; Globulin 2.9 g/dL (2.4-3.5); Magnesium 2.1 mg/dL (1.6-2.6); Potassium 4.6 mmol/L (3.5-5.1); Protein, Total 6.8 g/dL (6.0-8.3); Sodium 137 mmol/L (136-145)
[2018-01-22 13:08] LABS: CKMB 1.6 ng/mL (0-6.6); Troponin I 0.018 ng/mL (< 0.028)
[2018-01-22 13:09] LABS: Glucose 47 mg/dL (70-105)
[2018-01-22 13:10] LABS: Amphetamine Not Detected (NotDetected); Barbiturates Screen Not Detected (NotDetected); Benzodiazepine Screen Not Detected (NotDetected); Cocaine Metabolite Screen Not Detected (NotDetected); Methadone Not Detected (NotDetected); Methamphetamine Not Detected (NotDetected); Opiate Screen Not Detected (NotDetected); Oxycodone Screen Not Detected (NotDetected); Phencyclidine (PCP) Not Detected (NotDetected); THC/Cannabinoid Screen Not Detected (NotDetected); Tricyclic Screen Not Detected (NotDetected)
[2018-01-22 13:11] LABS: Medtox Control Line Valid? VALID (VALID)
[2018-01-22] MEDS ORDERED: Dextrose 50% Abboject 50 ML SYRINGE ONE (13:22)
[2018-01-22] MEDS ORDERED: cefTRIAXone\\ROCEPHIN 1 GM VIAL ONE (15:17)
== END 2018-01-22 17:20 | disposition home or self-care (01) ==
LOC: MADERS 11:57
DX: N39.0 Urinary tract infection, site not specified (principal); E16.2 Hypoglycemia, unspecified; I11.0 Hypertensive heart disease with heart failure; I50.9 Heart failure, unspecified; E78.5 Hyperlipidemia, unspecified; Z91.14 Patient's other noncompliance with medication regimen
CPT/HCPCS: 36415; 36416; 80053; 80306; 81003; 81015; 82553; 83605; 83735; 84443; 84484; 85025; 87086; 93005; J0696

== ENCOUNTER 2018-01-22 19:30 | Emergency (ER) | payer OTHER ==
--- NOTE | 2018-01-22 20:59 | CT ---
NONCONTRAST CT HEAD: 01/22/18 HISTORY: Ground level fall one hour ago. Head injury. COMPARISON: 08/25/16 FINDINGS: There is no evidence of a hemorrhage, acute infarction, mass effect, or midline shift. Ventricular sy stem is normal in size, shape and position. No calvarial fracture is seen. There has been no interval change from the prior exam. IMPRESSION: No acute intracranial abnormalities demonstrated. POS: [facility]
--- NOTE | 2018-01-22 23:13 | CT ---
NONCONTRAST CT CERVICAL SPINE 01/22/18 HISTORY: Neck injury, neck pain, ground level fall one hour ago. TECHNIQUE: Contiguous axial CT images are obtained through the cervical spine from the skull base to the T1-2 le luis. Sagittal and coronal reformatted images are provided. FINDINGS: There is slight grade I anterolisthesis of C4 on C5 likely related to the facet degenerative changes at this level. There is mild widening of the facet joint on the right at this level which could be re lated to the facet degenerative changes and possibly fluid within the joint space. Vertebral body hei ghts are within normal limits and there is no fracture. No additional subluxation is seen. There is straightening of the normal cervical lordotic curvature. The prevertebral soft tissues are within normal limits. Limited visualized lung apices are clear. IMPRESSION: 1. Mild anterolisthesis of C4 on C5 likely related to facet degenerative changes. There is mild widening of the right facet joint at this region, but this is likely attributable to the degenerative changes at this level; although, mild widening secondary to recent injury cannot be entirely exclude d. Depending on clinical concern, followup MRI cervical spine can be performed. 2. No acute fracture. 3. Degenerative changes in the cervical spine. POS: [facility]
== END 2018-01-22 22:32 | disposition short-term general hospital (02) ==
LOC: MADERS 19:30
DX: S80.02XA Contusion of left knee, initial encounter (principal); S80.01XA Contusion of right knee, initial encounter; S19.9XXA Unspecified injury of neck, initial encounter; S59.901A Unspecified injury of right elbow, initial encounter; I11.0 Hypertensive heart disease with heart failure; I50.9 Heart failure, unspecified; E78.5 Hyperlipidemia, unspecified; M54.5 Low back pain; Z79.82 Long term (current) use of aspirin; Z79.899 Other long term (current) drug therapy; W01.198A Fall on same level from slipping, tripping and stumbling with subsequent striking against other object, initial encounter
CPT/HCPCS: 36415; 36416; 70450; 72125; 80053; 80306; 81003; 81015; 82553; 83605; 83735; 84443; 84484; 85025; 87086; 93005; J0696

== ENCOUNTER 2019-02-01 02:06 | Emergency (ER) | payer MEDICARE, OTHER ==
[2019-02-01 04:56] LABS: Bilirubin Negative (Negative); Blood, Urine Large (Negative); Glucose, Urine (Dipstick) Negative (Negative); Leukocyte Moderate (Negative); Nitrite Negative (Negative); Protein, Urine (Dipstick) 100 mg/dL (Neg-Trace); Urobilinogen 0.2 mg/dL (Less than 2)
[2019-02-01 05:00] LABS: Clarity Hazy (Clear)
[2019-02-01 05:01] LABS: Bacteria/HPF 2+ HPF (None Seen); Squamous Epithelial 0-3 HPF (0-3); WBC/HPF Greater Than 50 HPF (0-3)
== END 2019-02-01 06:07 | disposition home or self-care (01) ==
LOC: MADERS 02:06
DX: Z46.6 Encounter for fitting and adjustment of urinary device (principal); N39.0 Urinary tract infection, site not specified; E11.9 Type 2 diabetes mellitus without complications; E03.9 Hypothyroidism, unspecified; J44.9 Chronic obstructive pulmonary disease, unspecified; N40.0 Benign prostatic hyperplasia without lower urinary tract symptoms; I11.0 Hypertensive heart disease with heart failure; I50.9 Heart failure, unspecified; E78.5 Hyperlipidemia, unspecified; F31.9 Bipolar disorder, unspecified; F25.9 Schizoaffective disorder, unspecified; Z87.891 Personal history of nicotine dependence; Z79.899 Other long term (current) drug therapy; Z79.82 Long term (current) use of aspirin; Z79.84 Long term (current) use of oral hypoglycemic drugs
CPT/HCPCS: 81003; 81015; 87086; 99283

== ENCOUNTER 2019-02-22 08:06 | Emergency (ER) | payer OTHER, MEDICARE ==
[2019-02-22] MEDS ORDERED: Acetaminophen 500 MG TAB ONE (08:33)
[2019-02-22] MEDS ORDERED: Sodium Chloride 0.9% 1,000 ML ONE (08:33)
[2019-02-22 09:09] LABS: Hemoglobin 13.4 g/dL (14.0-18.0); Mean Corpuscular HGB CONC 33.6 g/dL (32.0-36.0); Mean Corpuscular Hemoglobin 30.6 pg (27.0-31.0); Platelet Count 198 thou/uL (130-400); Red Blood Cell (RBC) Count 4.38 mill/uL (4.70-6.10); White Blood Cell (WBC) Count 20.7 thou/uL (4.8-10.8)
[2019-02-22] MEDS ORDERED: Ibuprofen 800 MG TAB ONE (09:10)
[2019-02-22 09:11] LABS: Bilirubin Negative (Negative); Blood, Urine Moderate (Negative); Clarity Slightly Cloudy (Clear); Glucose, Urine (Dipstick) Negative (Negative); Leukocyte Large (Negative); Nitrite Negative (Negative); Protein, Urine (Dipstick) Negative (Neg-Trace); Urobilinogen 0.2 mg/dL (Less than 2)
[2019-02-22 09:16] LABS: ALT (SGPT) 13 U/L (8-55); AST (SGOT) 11 U/L (5-34); Albumin 3.9 g/dL (3.5-5.0); Alkaline Phosphatase 58 U/L (40-150); Anion Gap 17 mmol/L (10-20); BUN (Urea Nitrogen) 6 mg/dL (8.4-25.7); Bacteria/HPF 2+ HPF (None Seen); Bilirubin, Total 0.3 mg/dL (0.2-1.2); Calc. Creatinine Clearance 0 mL/min (70-130); Calcium 8.8 mg/dL (7.8-10.44); Carbon Dioxide 23 mmol/L (22-29); Chloride 102 mmol/L (98-107); Estimated GFR-MDRD 55; Globulin 2.8 g/dL (2.4-3.5); Glucose 125 mg/dL (70-105); Potassium 4.5 mmol/L (3.5-5.1); Protein, Total 6.7 g/dL (6.0-8.3); Sodium 137 mmol/L (136-145); Squamous Epithelial 0-3 HPF (0-3); WBC/HPF Greater Than 50 HPF (0-3)
[2019-02-22] MEDS ORDERED: cefTRIAXone\\ROCEPHIN 1 GM VIAL ONE (09:22)
[2019-02-22 09:24] LABS: Anisocytosis SLIGHT = 6-15 cells (100X) (0-5/hpf); Band 2 % (5-11); Lymphocytes 7 % (21-51); MDiff Complete? YES; Monocytes 9 % (0-10); Neutrophil 82 % (42-75); Platelet Morphology Comment Appears Adequate
[2019-02-22] MEDS ORDERED: Sodium Chloride 0.9% 250 ML 250 ML ONE (09:47)
== END 2019-02-22 10:21 | disposition short-term general hospital (02) ==
LOC: MADERS 08:06
DX: A41.9 Sepsis, unspecified organism (principal); N39.0 Urinary tract infection, site not specified; E11.9 Type 2 diabetes mellitus without complications; E03.9 Hypothyroidism, unspecified; Z87.891 Personal history of nicotine dependence; J44.9 Chronic obstructive pulmonary disease, unspecified; N40.0 Benign prostatic hyperplasia without lower urinary tract symptoms; I10 Essential (primary) hypertension; F31.9 Bipolar disorder, unspecified; F25.9 Schizoaffective disorder, unspecified; Z79.899 Other long term (current) drug therapy; Z79.84 Long term (current) use of oral hypoglycemic drugs; Z79.82 Long term (current) use of aspirin
CPT/HCPCS: 80053; 81003; 81015; 83605; 83880; 84484; 85025; 87040; 87077; 87086; 87186; 93005; 94760; 96361; 96365; 96375; J0696; J3370; J7050

== ENCOUNTER 2019-03-05 21:26 | Emergency (ER) | payer OTHER ==
[2019-03-05 23:02] LABS: #Basophils 0.1 thou/uL (0.0-0.2); #Eosinphils 0.4 thou/uL (0.0-0.7); #Lymphocytes 1.9 thou/uL (1.20-3.40); #Neutrophils 7.4 thou/uL (1.40-6.50); %Eosinophils 3.3 % (0.0-10.0); %Lymphocytes 17.5 % (21.0-51.0); %Monocytes 9.2 % (0.0-10.0); Hemoglobin 11.8 g/dL (14.0-18.0); Mean Corpuscular HGB CONC 34.1 g/dL (32.0-36.0); Mean Corpuscular Hemoglobin 30.2 pg (27.0-31.0); Mean Corpuscular Volume 88.6 fL (78.0-98.0); Platelet Count 256 thou/uL (130-400); RBC Distribution Width 12.1 % (11.5-14.5); Red Blood Cell (RBC) Count 3.93 mill/uL (4.70-6.10); White Blood Cell (WBC) Count 10.7 thou/uL (4.8-10.8)
--- NOTE | 2019-03-05 23:17 | RAD ---
PORTABLE CHEST ONE VIEW: 03/05/19 at 11:01 p.m. HISTORY: Fever. FINDINGS: Comparison made with exam of 02/22/19. The heart size is normal. The lungs are expanded without focal areas of consolidation, pneumothoraces , or pleural effusions. IMPRESSION: No radiographic evidence of acute cardiopulmonary process. POS: [facility]
[2019-03-05 23:20] LABS: ALT (SGPT) 26 U/L (8-55); AST (SGOT) 13 U/L (5-34); Albumin 3.6 g/dL (3.5-5.0); Alkaline Phosphatase 92 U/L (40-150); Anion Gap 15 mmol/L (10-20); BUN (Urea Nitrogen) 9 mg/dL (8.4-25.7); Bilirubin, Total 0.2 mg/dL (0.2-1.2); Calc. Creatinine Clearance 0 mL/min (70-130); Calcium 9.1 mg/dL (7.8-10.44); Carbon Dioxide 25 mmol/L (22-29); Chloride 97 mmol/L (98-107); Estimated GFR-MDRD 52; Globulin 2.9 g/dL (2.4-3.5); Glucose 125 mg/dL (70-105); Potassium 4.5 mmol/L (3.5-5.1); Protein, Total 6.5 g/dL (6.0-8.3); Sodium 132 mmol/L (136-145)
[2019-03-05 23:26] LABS: Bilirubin Negative (Negative); Blood, Urine Moderate (Negative); Clarity Clear (Clear); Glucose, Urine (Dipstick) Negative (Negative); Leukocyte Moderate (Negative); Nitrite Positive (Negative); Protein, Urine (Dipstick) Negative (Neg-Trace); Urobilinogen 0.2 mg/dL (Less than 2)
[2019-03-05 23:31] LABS: Bacteria/HPF 3+ HPF (None Seen); Squamous Epithelial 0-3 HPF (0-3)
[2019-03-06] MEDS ORDERED: Ciprofloxacin Lactate/D5W 400 mg/200 ml Premix ONE (00:04)
[2019-03-06] MEDS ORDERED: Meropenem 1 GM VIAL ONE (00:18)
[2019-03-06] MEDS ORDERED: Sodium Chloride 0.9% 100 ML ONE (00:19)
[2019-03-06] MEDS ORDERED: Vancomycin HCl 500 MG VIAL ONE (01:01)
== END 2019-03-06 01:35 | disposition short-term general hospital (02) ==
LOC: MADERS 21:26
DX: T83.518A Infection and inflammatory reaction due to other urinary catheter, initial encounter (principal); N45.2 Orchitis; I50.9 Heart failure, unspecified; E11.9 Type 2 diabetes mellitus without complications; E03.9 Hypothyroidism, unspecified; I10 Essential (primary) hypertension; J44.9 Chronic obstructive pulmonary disease, unspecified; E78.5 Hyperlipidemia, unspecified; N40.0 Benign prostatic hyperplasia without lower urinary tract symptoms; F31.9 Bipolar disorder, unspecified; F25.9 Schizoaffective disorder, unspecified; Z87.891 Personal history of nicotine dependence; Z79.82 Long term (current) use of aspirin; Z79.899 Other long term (current) drug therapy; Z79.84 Long term (current) use of oral hypoglycemic drugs
CPT/HCPCS: 36415; 71045; 80053; 81003; 81015; 83605; 85025; 86140; 87040; 87077; 87086; 87186; 96365; 96367; J0744; J2185; J3370; J3490; J7050

== ENCOUNTER 2019-03-20 19:27 | Emergency (ER) | payer MEDICARE, OTHER ==
[2019-03-20 20:11] LABS: Bilirubin Negative (Negative); Blood, Urine Moderate (Negative); Clarity Clear (Clear); Glucose, Urine (Dipstick) Negative (Negative); Leukocyte Trace (Negative); Nitrite Negative (Negative); Protein, Urine (Dipstick) 30 mg/dL (Neg-Trace); Urobilinogen 0.2 mg/dL (Less than 2)
[2019-03-20 20:13] LABS: #Basophils 0.1 thou/uL (0.0-0.2); #Eosinphils 0.5 thou/uL (0.0-0.7); #Lymphocytes 1.9 thou/uL (1.20-3.40); #Neutrophils 6.8 thou/uL (1.40-6.50); %Basophils 1.3 % (0.0-1.0); %Eosinophils 5.2 % (0.0-10.0); %Lymphocytes 18.5 % (21.0-51.0); %Monocytes 9.3 % (0.0-10.0); %Neutrophils 65.8 % (42.0-75.0); Hemoglobin 11.5 g/dL (14.0-18.0); Mean Corpuscular HGB CONC 36.2 g/dL (32.0-36.0); Mean Corpuscular Hemoglobin 31.2 pg (27.0-31.0); Mean Corpuscular Volume 86.1 fL (78.0-98.0); Mean Platelet Volume 7.6 fL (7.4-10.4); Platelet Count 200 thou/uL (130-400); RBC Distribution Width 11.9 % (11.5-14.5); Red Blood Cell (RBC) Count 3.69 mill/uL (4.70-6.10); White Blood Cell (WBC) Count 10.3 thou/uL (4.8-10.8)
[2019-03-20 20:17] LABS: Bacteria/HPF None Seen HPF (None Seen); Squamous Epithelial 0-3 HPF (0-3)
[2019-03-20 20:28] LABS: ALT (SGPT) 14 U/L (8-55); AST (SGOT) 13 U/L (5-34); Albumin 3.7 g/dL (3.5-5.0); Alkaline Phosphatase 72 U/L (40-150); Anion Gap 15 mmol/L (10-20); BUN (Urea Nitrogen) 8 mg/dL (8.4-25.7); Bilirubin, Total 0.4 mg/dL (0.2-1.2); Calc. Creatinine Clearance 0 mL/min (70-130); Calcium 8.7 mg/dL (7.8-10.44); Carbon Dioxide 25 mmol/L (22-29); Chloride 88 mmol/L (98-107); Estimated GFR-MDRD 57; Globulin 2.6 g/dL (2.4-3.5); Glucose 102 mg/dL (70-105); Potassium 4.1 mmol/L (3.5-5.1); Protein, Total 6.3 g/dL (6.0-8.3); Sodium 124 mmol/L (136-145)
[2019-03-20] MEDS ORDERED: Sodium Chloride 0.9% 1,000 ML ONE (20:28)
== END 2019-03-20 22:57 | disposition short-term general hospital (02) ==
LOC: MADERS 19:27 → EEVIPCON 19:27 → MADERS 22:57
DX: E87.1 Hypo-osmolality and hyponatremia (principal); I11.0 Hypertensive heart disease with heart failure; I50.9 Heart failure, unspecified; E11.9 Type 2 diabetes mellitus without complications; E03.9 Hypothyroidism, unspecified; J44.9 Chronic obstructive pulmonary disease, unspecified; E78.5 Hyperlipidemia, unspecified; N40.0 Benign prostatic hyperplasia without lower urinary tract symptoms; F31.9 Bipolar disorder, unspecified; F25.9 Schizoaffective disorder, unspecified; Z79.82 Long term (current) use of aspirin; Z86.73 Personal history of transient ischemic attack (TIA), and cerebral infarction without residual deficits; Z79.899 Other long term (current) drug therapy; Z79.84 Long term (current) use of oral hypoglycemic drugs
CPT/HCPCS: 36415; 80053; 81003; 81015; 83605; 85025; 87040; 87086; 96360; J7050

== ENCOUNTER 2019-03-25 14:51 | Emergency (ER) | payer OTHER ==
--- NOTE | 2019-03-25 15:20 | RAD ---
XR Chest 1 View Portable HISTORY: Chest pain COMPARISON: 03/14/2019 FINDINGS: The heart size is normal. The lungs are well expanded without focal areas of consolidation, pneumothorax or pleural effusions. IMPRESSION: No radiographic evidence of acute cardiopulmonary process.
[2019-03-25 15:23] LABS: #Basophils 0.1 thou/uL (0.0-0.2); #Eosinphils 0.7 thou/uL (0.0-0.7); #Lymphocytes 1.3 thou/uL (1.20-3.40); #Monocytes 0.8 thou/uL (0.11-0.59); %Basophils 0.8 % (0.0-1.0); %Eosinophils 7.5 % (0.0-10.0); %Lymphocytes 12.9 % (21.0-51.0); %Monocytes 7.6 % (0.0-10.0); %Neutrophils 71.2 % (42.0-75.0); Hemoglobin 11.9 g/dL (14.0-18.0); Mean Corpuscular HGB CONC 34.6 g/dL (32.0-36.0); Mean Corpuscular Hemoglobin 30.5 pg (27.0-31.0); Mean Corpuscular Volume 88.3 fL (78.0-98.0); Mean Platelet Volume 6.6 fL (7.4-10.4); Platelet Count 177 thou/uL (130-400); White Blood Cell (WBC) Count 9.8 thou/uL (4.8-10.8)
[2019-03-25] MEDS ORDERED: Loperamide HCl 2 MG CAP ONE (15:32)
[2019-03-25 15:43] LABS: ALT (SGPT) 16 U/L (8-55); AST (SGOT) 16 U/L (5-34); Albumin 3.9 g/dL (3.5-5.0); Alkaline Phosphatase 66 U/L (40-150); Anion Gap 15 mmol/L (10-20); BUN (Urea Nitrogen) 10 mg/dL (8.4-25.7); Bilirubin, Total 0.4 mg/dL (0.2-1.2); Calc. Creatinine Clearance 0 mL/min (70-130); Calcium 9.1 mg/dL (7.8-10.44); Carbon Dioxide 24 mmol/L (22-29); Chloride 95 mmol/L (98-107); Estimated GFR-MDRD 52; Globulin 2.6 g/dL (2.4-3.5); Glucose 78 mg/dL (70-105); Potassium 4.4 mmol/L (3.5-5.1); Protein, Total 6.5 g/dL (6.0-8.3); Sodium 130 mmol/L (136-145)
[2019-03-25] MEDS ORDERED: Aspirin Chewable 81 MG TAB ONE (19:44)
== END 2019-03-25 19:56 | disposition short-term general hospital (02) ==
LOC: MADERS 14:51 → EEVIPCON 14:51 → MADERS 19:56
DX: R07.9 Chest pain, unspecified (principal); I11.0 Hypertensive heart disease with heart failure; I50.9 Heart failure, unspecified; E11.9 Type 2 diabetes mellitus without complications; E03.9 Hypothyroidism, unspecified; J44.9 Chronic obstructive pulmonary disease, unspecified; E78.5 Hyperlipidemia, unspecified; N40.0 Benign prostatic hyperplasia without lower urinary tract symptoms; F31.9 Bipolar disorder, unspecified; F25.9 Schizoaffective disorder, unspecified; Z86.73 Personal history of transient ischemic attack (TIA), and cerebral infarction without residual deficits; Z79.82 Long term (current) use of aspirin; Z79.84 Long term (current) use of oral hypoglycemic drugs; Z79.899 Other long term (current) drug therapy
CPT/HCPCS: 36415; 71045; 80053; 83880; 84484; 85025; 93005

== ENCOUNTER 2019-04-05 13:52 | Outpatient (CLI) | payer OTHER ==
[2019-04-05 14:27] LABS: Anion Gap 14 mmol/L (10-20); BUN (Urea Nitrogen) 9 mg/dL (8.4-25.7); Calc. Creatinine Clearance 0 mL/min (70-130); Calcium 9.1 mg/dL (7.8-10.44); Carbon Dioxide 26 mmol/L (22-29); Chloride 88 mmol/L (98-107); Estimated GFR-MDRD 59; Glucose 139 mg/dL (70-105); Potassium 4.2 mmol/L (3.5-5.1); Sodium 124 mmol/L (136-145)
== END 2019-04-05 13:53 | disposition home or self-care (01) ==
LOC: MADLABBHPM 13:52
PROVIDERS: ATTEND Family Medicine
DX: E87.1 Hypo-osmolality and hyponatremia (principal)
CPT/HCPCS: 36415

== ENCOUNTER 2019-04-14 13:51 | Outpatient (CLI) | payer OTHER ==
[2019-04-14 14:25] LABS: Anion Gap 14 mmol/L (10-20); BUN (Urea Nitrogen) 10 mg/dL (8.4-25.7); Calc. Creatinine Clearance 0 mL/min (70-130); Calcium 8.8 mg/dL (7.8-10.44); Carbon Dioxide 25 mmol/L (22-29); Chloride 98 mmol/L (98-107); Estimated GFR-MDRD 53; Glucose 95 mg/dL (70-105); Potassium 4.3 mmol/L (3.5-5.1); Sodium 133 mmol/L (136-145)
== END 2019-04-14 13:52 | disposition home or self-care (01) ==
LOC: MADLAB 13:51
PROVIDERS: ATTEND Family Medicine
DX: E87.1 Hypo-osmolality and hyponatremia (principal)
CPT/HCPCS: 36415; 80048; 83930; 83935; 84300

== ENCOUNTER 2019-07-15 18:09 | Emergency (ER) | payer OTHER ==
[2019-07-15 18:50] LABS: #Basophils 0.1 thou/uL (0.0-0.2); #Lymphocytes 1.3 thou/uL (1.20-3.40); #Monocytes 0.7 thou/uL (0.11-0.59); #Neutrophils 9.3 thou/uL (1.40-6.50); %Basophils 0.8 % (0.0-1.0); %Eosinophils 7.9 % (0.0-10.0); %Lymphocytes 10.3 % (21.0-51.0); %Monocytes 5.6 % (0.0-10.0); %Neutrophils 75.4 % (42.0-75.0); Hemoglobin 13.1 g/dL (14.0-18.0); Mean Corpuscular HGB CONC 32.8 g/dL (32.0-36.0); Mean Corpuscular Volume 91.4 fL (78.0-98.0); Mean Platelet Volume 7.1 fL (7.4-10.4); Platelet Count 223 thou/uL (130-400); RBC Distribution Width 11.2 % (11.5-14.5); Red Blood Cell (RBC) Count 4.38 mill/uL (4.70-6.10); White Blood Cell (WBC) Count 12.4 thou/uL (4.8-10.8)
[2019-07-15 18:54] LABS: Bilirubin Negative (Negative); Blood, Urine Small (Negative); Glucose, Urine (Dipstick) Negative (Negative); Leukocyte Moderate (Negative); Nitrite Positive (Negative); Protein, Urine (Dipstick) Trace mg/dL (Neg-Trace); Urobilinogen 0.2 mg/dL (Less than 2)
[2019-07-15 18:56] LABS: Clarity Hazy (Clear)
[2019-07-15 19:02] LABS: WBC/HPF 21-50 HPF (0-3)
[2019-07-15 19:03] LABS: Bacteria/HPF 2+ HPF (None Seen); Squamous Epithelial 0-3 HPF (0-3)
[2019-07-15 19:06] LABS: ALT (SGPT) 19 U/L (8-55); AST (SGOT) 14 U/L (5-34); Albumin 3.8 g/dL (3.5-5.0); Alkaline Phosphatase 67 U/L (40-110); Anion Gap 14 mmol/L (10-20); BUN (Urea Nitrogen) 10 mg/dL (8.4-25.7); Bilirubin, Total 0.3 mg/dL (0.2-1.2); CK (CPK) 324 U/L (30-200); Calc. Creatinine Clearance 0 mL/min (70-130); Calcium 9.1 mg/dL (7.8-10.44); Carbon Dioxide 26 mmol/L (22-29); Chloride 90 mmol/L (98-107); Estimated GFR-MDRD 54; Globulin 2.9 g/dL (2.4-3.5); Glucose 160 mg/dL (70-105); Potassium 4.2 mmol/L (3.5-5.1); Protein, Total 6.7 g/dL (6.0-8.3); Sodium 126 mmol/L (136-145)
[2019-07-15 19:08] LABS: CKMB 5.4 ng/mL (0-6.6)
[2019-07-15] MEDS ORDERED: Sodium Chloride 0.9% 1,000 ML ONE (19:13)
[2019-07-15] MEDS ORDERED: Meropenem 1 GM VIAL ONE (19:53)
[2019-07-15] MEDS ORDERED: Sodium Chloride 0.9% 100 ML ONE (19:53)
== END 2019-07-15 22:10 | disposition short-term general hospital (02) ==
LOC: MADERS 18:09
DX: N39.0 Urinary tract infection, site not specified (principal); E87.1 Hypo-osmolality and hyponatremia; E11.9 Type 2 diabetes mellitus without complications; E03.9 Hypothyroidism, unspecified; I10 Essential (primary) hypertension; J44.9 Chronic obstructive pulmonary disease, unspecified; I11.0 Hypertensive heart disease with heart failure; I50.9 Heart failure, unspecified; E78.5 Hyperlipidemia, unspecified; F31.9 Bipolar disorder, unspecified; F25.9 Schizoaffective disorder, unspecified; Z87.891 Personal history of nicotine dependence; Z79.82 Long term (current) use of aspirin; Z86.73 Personal history of transient ischemic attack (TIA), and cerebral infarction without residual deficits; Z79.899 Other long term (current) drug therapy; Z79.84 Long term (current) use of oral hypoglycemic drugs
CPT/HCPCS: 36415; 80053; 81003; 81015; 82550; 82553; 84484; 85025; 87077; 87086; 87186; 96361; 96365; J2185; J3490; J7050

== ENCOUNTER 2019-07-20 23:10 | Emergency (ER) | payer OTHER ==
[2019-07-20 23:35] LABS: #Basophils 0.2 thou/uL (0.0-0.2); #Eosinphils 1.1 thou/uL (0.0-0.7); #Lymphocytes 2.3 thou/uL (1.20-3.40); #Monocytes 1.3 thou/uL (0.11-0.59); %Basophils 1.2 % (0.0-1.0); %Eosinophils 7.9 % (0.0-10.0); %Lymphocytes 16.6 % (21.0-51.0); %Monocytes 9.2 % (0.0-10.0); %Neutrophils 64.9 % (42.0-75.0); Hemoglobin 13.1 g/dL (14.0-18.0); Mean Corpuscular HGB CONC 33.1 g/dL (32.0-36.0); Mean Corpuscular Hemoglobin 30.2 pg (27.0-31.0); Mean Corpuscular Volume 91.1 fL (78.0-98.0); Mean Platelet Volume 7.3 fL (7.4-10.4); Platelet Count 225 thou/uL (130-400); RBC Distribution Width 11.4 % (11.5-14.5); Red Blood Cell (RBC) Count 4.35 mill/uL (4.70-6.10); White Blood Cell (WBC) Count 13.8 thou/uL (4.8-10.8)
[2019-07-20 23:45] LABS: Bilirubin Negative (Negative); Blood, Urine Moderate (Negative); Clarity Clear (Clear); Glucose, Urine (Dipstick) 100 mg/dL (Negative); Leukocyte Trace (Negative); Nitrite Negative (Negative); Protein, Urine (Dipstick) 100 mg/dL (Neg-Trace); Urobilinogen 0.2 mg/dL (Less than 2)
[2019-07-20 23:52] LABS: Anion Gap 15 mmol/L (10-20); BUN (Urea Nitrogen) 14 mg/dL (8.4-25.7); CK (CPK) 526 U/L (30-200); Calc. Creatinine Clearance 0 mL/min (70-130); Calcium 9.2 mg/dL (7.8-10.44); Carbon Dioxide 24 mmol/L (22-29); Chloride 97 mmol/L (98-107); Estimated GFR-MDRD 50; Glucose 143 mg/dL (70-105); Magnesium 1.8 mg/dL (1.6-2.6); Potassium 4.2 mmol/L (3.5-5.1); Sodium 132 mmol/L (136-145)
[2019-07-20 23:52] LABS: Bacteria/HPF None Seen HPF (None Seen); Mucous/LPF Rare LPF (<2+); Squamous Epithelial None Seen HPF (0-3); WBC/HPF 0-3 HPF (0-3)
[2019-07-21] MEDS ORDERED: Lisinopril 10 MG TAB ONE (00:02)
== END 2019-07-21 03:28 | disposition short-term general hospital (02) ==
LOC: MADERS 23:10
DX: M79.10 Myalgia, unspecified site (principal); N30.90 Cystitis, unspecified without hematuria; E11.65 Type 2 diabetes mellitus with hyperglycemia; E87.1 Hypo-osmolality and hyponatremia; J44.9 Chronic obstructive pulmonary disease, unspecified; I11.0 Hypertensive heart disease with heart failure; I50.9 Heart failure, unspecified; E03.9 Hypothyroidism, unspecified; E78.5 Hyperlipidemia, unspecified; F31.9 Bipolar disorder, unspecified; F25.9 Schizoaffective disorder, unspecified; Z86.73 Personal history of transient ischemic attack (TIA), and cerebral infarction without residual deficits; Z79.82 Long term (current) use of aspirin; Z79.899 Other long term (current) drug therapy
CPT/HCPCS: 80048; 81003; 81015; 82550; 83735; 85025; 87086; 99284

== ENCOUNTER 2019-08-23 20:41 | Emergency (ER) | payer MEDICARE, OTHER ==
[2019-08-23] MEDS ORDERED: Sodium Chloride 0.9% 1,000 ML ONE (21:24)
[2019-08-23 21:27] LABS: #Basophils 0.2 thou/uL (0.0-0.2); #Eosinphils 0.5 thou/uL (0.0-0.7); #Lymphocytes 0.8 thou/uL (1.20-3.40); #Neutrophils 9.1 thou/uL (1.40-6.50); %Basophils 1.5 % (0.0-1.0); %Lymphocytes 6.6 % (21.0-51.0); %Monocytes 8.9 % (0.0-10.0); Hemoglobin 12.2 g/dL (14.0-18.0); Mean Corpuscular HGB CONC 32.2 g/dL (32.0-36.0); Mean Corpuscular Hemoglobin 29.5 pg (27.0-31.0); Mean Corpuscular Volume 91.5 fL (78.0-98.0); Mean Platelet Volume 7.2 fL (7.4-10.4); Platelet Count 260 thou/uL (130-400); RBC Distribution Width 12.1 % (11.5-14.5); Red Blood Cell (RBC) Count 4.14 mill/uL (4.70-6.10); White Blood Cell (WBC) Count 11.5 thou/uL (4.8-10.8)
[2019-08-23 21:27] LABS: Bilirubin Negative (Negative); Blood, Urine Moderate (Negative); Clarity Clear (Clear); Glucose, Urine (Dipstick) Negative (Negative); Leukocyte Large (Negative); Nitrite Negative (Negative); Protein, Urine (Dipstick) 100 mg/dL (Neg-Trace); Urobilinogen 0.2 mg/dL (Less than 2)
[2019-08-23 21:35] LABS: Bacteria/HPF 1+ HPF (None Seen); Squamous Epithelial 0-3 HPF (0-3); WBC/HPF Greater than 50 HPF (0-3)
[2019-08-23 21:42] LABS: ALT (SGPT) 15 U/L (8-55); AST (SGOT) 12 U/L (5-34); Albumin 3.7 g/dL (3.5-5.0); Alkaline Phosphatase 74 U/L (40-110); Anion Gap 17 mmol/L (10-20); BUN (Urea Nitrogen) 12 mg/dL (8.4-25.7); Bilirubin, Total 0.5 mg/dL (0.2-1.2); Calc. Creatinine Clearance 0 mL/min (70-130); Calcium 8.8 mg/dL (7.8-10.44); Carbon Dioxide 26 mmol/L (22-29); Chloride 93 mmol/L (98-107); Estimated GFR-MDRD 40; Glucose 127 mg/dL (70-105); Potassium 4.5 mmol/L (3.5-5.1); Protein, Total 6.7 g/dL (6.0-8.3); Sodium 131 mmol/L (136-145)
[2019-08-23 21:43] LABS: Band 12 % (5-11); Eosinophils 2 % (0-10); Lymphocytes 5 % (21-51); MDiff Complete? YES; Monocytes 2 % (0-10); Neutrophil 79 % (42-75)
[2019-08-23] MEDS ORDERED: cefTRIAXone\\ROCEPHIN 1 GM VIAL ONE (22:27)
[2019-08-23] MEDS ORDERED: Sodium Chloride 0.9% 100 ML ONE (22:27)
== END 2019-08-23 23:25 | disposition home or self-care (01) ==
LOC: MADERS 20:41
DX: N39.0 Urinary tract infection, site not specified (principal); E11.9 Type 2 diabetes mellitus without complications; E03.9 Hypothyroidism, unspecified; J44.9 Chronic obstructive pulmonary disease, unspecified; I11.0 Hypertensive heart disease with heart failure; I50.9 Heart failure, unspecified; F31.9 Bipolar disorder, unspecified; F25.9 Schizoaffective disorder, unspecified; Z87.891 Personal history of nicotine dependence; Z86.73 Personal history of transient ischemic attack (TIA), and cerebral infarction without residual deficits; Z79.899 Other long term (current) drug therapy; Z79.82 Long term (current) use of aspirin; Z79.84 Long term (current) use of oral hypoglycemic drugs
CPT/HCPCS: 36415; 80053; 81003; 81015; 83605; 83880; 84484; 85025; 87040; 87077; 87086; 87149; 87186; 96361; 96365; J0696; J3490; J7050

== ENCOUNTER 2019-08-24 23:08 | Emergency (ER) | payer MEDICARE ==
[2019-08-24] MEDS ORDERED: Sodium Chloride 0.9% 1,000 ML ONE (23:38)
[2019-08-24] MEDS ORDERED: cefTRIAXone\\ROCEPHIN 2 GM VIAL ONE (23:39)
[2019-08-24] MEDS ORDERED: Sodium Chloride 0.9% 100 ML ONE (23:40)
[2019-08-24 23:55] LABS: Bilirubin Negative (Negative); Blood, Urine Moderate (Negative); Clarity Clear (Clear); Glucose, Urine (Dipstick) Negative (Negative); Leukocyte Large (Negative); Nitrite Negative (Negative); Protein, Urine (Dipstick) 100 mg/dL (Neg-Trace); Urobilinogen 0.2 mg/dL (Less than 2)
[2019-08-25 00:01] LABS: Bacteria/HPF 1+ HPF (None Seen); Squamous Epithelial 0-3 HPF (0-3)
[2019-08-25 00:04] LABS: Hemoglobin 11.8 g/dL (14.0-18.0); Mean Corpuscular HGB CONC 32.5 g/dL (32.0-36.0); Mean Corpuscular Hemoglobin 29.7 pg (27.0-31.0); Mean Corpuscular Volume 91.5 fL (78.0-98.0); Mean Platelet Volume 6.8 fL (7.4-10.4); Platelet Count 215 thou/uL (130-400); RBC Distribution Width 12.1 % (11.5-14.5); Red Blood Cell (RBC) Count 3.89 mill/uL (4.70-6.10); White Blood Cell (WBC) Count 10.4 thou/uL (4.8-10.8)
[2019-08-25 00:10] LABS: ALT (SGPT) 14 U/L (8-55); AST (SGOT) 15 U/L (5-34); Albumin 3.6 g/dL (3.5-5.0); Alkaline Phosphatase 71 U/L (40-110); Anion Gap 14 mmol/L (10-20); BUN (Urea Nitrogen) 11 mg/dL (8.4-25.7); Bilirubin, Total 0.5 mg/dL (0.2-1.2); CRP (Inflammatory) 9.37 mg/dL (= or < 0.5); Calc. Creatinine Clearance 0 mL/min (70-130); Calcium 8.6 mg/dL (7.8-10.44); Carbon Dioxide 26 mmol/L (22-29); Chloride 96 mmol/L (98-107); Estimated GFR-MDRD 42; Globulin 2.9 g/dL (2.4-3.5); Glucose 91 mg/dL (70-105); Potassium 3.9 mmol/L (3.5-5.1); Protein, Total 6.5 g/dL (6.0-8.3); Sodium 132 mmol/L (136-145)
[2019-08-25 00:14] LABS: Manual Diff?? YES
[2019-08-25 00:15] LABS: #Basophils 0.1 thou/uL (0.0-0.2); #Eosinphils 0.1 thou/uL (0.0-0.7); #Monocytes 2.3 thou/uL (0.11-0.59); #Neutrophils 6.7 thou/uL (1.40-6.50); %Basophils 0.7 % (0.0-1.0); %Eosinophils 1.2 % (0.0-10.0); %Lymphocytes 11.6 % (21.0-51.0); %Monocytes 22.1 % (0.0-10.0); %Neutrophils 64.4 % (42.0-75.0); Band 26 % (5-11); Lymphocytes 13 % (21-51); MDiff Complete? YES; Monocytes 14 % (0-10); Neutrophil 44 % (42-75)
[2019-08-25 00:16] LABS: Differential Comment Y; Eosinophils 1 % (0-10); Metamyelocyte 2 % (0-0)
== END 2019-08-25 01:12 | disposition short-term general hospital (02) ==
LOC: MADERS 23:08
DX: N39.0 Urinary tract infection, site not specified (principal); R82.71 Bacteriuria; E11.9 Type 2 diabetes mellitus without complications; E78.00 Pure hypercholesterolemia, unspecified; I11.0 Hypertensive heart disease with heart failure; I50.9 Heart failure, unspecified; E03.9 Hypothyroidism, unspecified; E78.5 Hyperlipidemia, unspecified; Z86.73 Personal history of transient ischemic attack (TIA), and cerebral infarction without residual deficits; F31.9 Bipolar disorder, unspecified; Z87.891 Personal history of nicotine dependence; Z79.899 Other long term (current) drug therapy
CPT/HCPCS: 36415; 80053; 81003; 81015; 83605; 85025; 86140; 87086; 96361; 96365; J0696; J3490; J7050

== ENCOUNTER 2019-09-26 12:03 | Emergency (ER) | payer OTHER ==
--- NOTE | 2019-09-26 13:16 | RAD ---
Exam: Chest one view HISTORY:Chest pain. Comparison: 03/25/2019 FINDINGS: Cardiac silhouette: Normal Aorta: Unremarkable Pulmonary vessels: Normal Costophrenic angles: Clear LUNGS: No masses or consolidation. Pneumothorax: None Osseous abnormalities: None IMPRESSION: No acute cardiopulmonary process.
[2019-09-26 13:19] LABS: Bilirubin Negative (Negative); Blood, Urine Trace (Negative); Glucose, Urine (Dipstick) 100 mg/dL (Negative); Leukocyte Small (Negative); Nitrite Positive (Negative); Protein, Urine (Dipstick) Negative (Neg-Trace); Urobilinogen 0.2 mg/dL (Less than 2)
[2019-09-26 13:22] LABS: #Basophils 0.2 thou/uL (0.0-0.2); #Eosinphils 0.7 thou/uL (0.0-0.7); #Lymphocytes 1.2 thou/uL (1.20-3.40); #Monocytes 0.8 thou/uL (0.11-0.59); #Neutrophils 9.6 thou/uL (1.40-6.50); %Basophils 1.4 % (0.0-1.0); %Eosinophils 5.6 % (0.0-10.0); %Lymphocytes 9.8 % (21.0-51.0); %Monocytes 6.3 % (0.0-10.0); %Neutrophils 76.9 % (42.0-75.0); Hemoglobin 13.2 g/dL (14.0-18.0); Mean Corpuscular HGB CONC 32.6 g/dL (32.0-36.0); Mean Corpuscular Hemoglobin 30.2 pg (27.0-31.0); Mean Corpuscular Volume 92.6 fL (78.0-98.0); Mean Platelet Volume 7.4 fL (7.4-10.4); Platelet Count 211 thou/uL (130-400); RBC Distribution Width 12.6 % (11.5-14.5); Red Blood Cell (RBC) Count 4.38 mill/uL (4.70-6.10); White Blood Cell (WBC) Count 12.4 thou/uL (4.8-10.8)
[2019-09-26 13:26] LABS: Bacteria/HPF 1+ HPF (None Seen); Clarity Hazy (Clear); RBC/HPF 0-3 HPF (0-3); Squamous Epithelial 0-3 HPF (0-3)
[2019-09-26 13:36] LABS: ALT (SGPT) 18 U/L (8-55); AST (SGOT) 16 U/L (5-34); Alkaline Phosphatase 89 U/L (40-110); Anion Gap 15 mmol/L (10-20); BUN (Urea Nitrogen) 14 mg/dL (8.4-25.7); Bilirubin, Total 0.2 mg/dL (0.2-1.2); CK (CPK) 219 U/L (30-200); Calc. Creatinine Clearance 0 mL/min (70-130); Calcium 9.6 mg/dL (7.8-10.44); Carbon Dioxide 24 mmol/L (22-29); Chloride 101 mmol/L (98-107); Estimated GFR-MDRD 48; Globulin 3.3 g/dL (2.4-3.5); Glucose 133 mg/dL (70-105); Potassium 4.2 mmol/L (3.5-5.1); Protein, Total 7.3 g/dL (6.0-8.3); Sodium 136 mmol/L (136-145)
[2019-09-26] MEDS ORDERED: Cephalexin 500 MG CAP ONE (14:08)
== END 2019-09-26 14:13 | disposition home or self-care (01) ==
LOC: MADERS 12:03
DX: T83.510A Infection and inflammatory reaction due to cystostomy catheter, initial encounter (principal); R07.89 Other chest pain; I11.0 Hypertensive heart disease with heart failure; I50.9 Heart failure, unspecified; E11.9 Type 2 diabetes mellitus without complications; E78.5 Hyperlipidemia, unspecified; E78.00 Pure hypercholesterolemia, unspecified; J44.9 Chronic obstructive pulmonary disease, unspecified; E03.9 Hypothyroidism, unspecified; F31.9 Bipolar disorder, unspecified; F25.9 Schizoaffective disorder, unspecified; Z86.73 Personal history of transient ischemic attack (TIA), and cerebral infarction without residual deficits; Z87.891 Personal history of nicotine dependence; Z79.899 Other long term (current) drug therapy; Z79.82 Long term (current) use of aspirin; Z79.84 Long term (current) use of oral hypoglycemic drugs
CPT/HCPCS: 36415; 71045; 80053; 81003; 81015; 82550; 84484; 85025; 87077; 87086; 87186; 93005

== ENCOUNTER 2019-12-10 13:03 | Outpatient (CLI) | payer OTHER ==
[2019-12-10 13:49] LABS: Anion Gap 16 mmol/L (10-20); BUN (Urea Nitrogen) 19 mg/dL (8.4-25.7); Calc. Creatinine Clearance 0 mL/min (70-130); Calcium 9.1 mg/dL (7.8-10.44); Carbon Dioxide 28 mmol/L (22-29); Chloride 101 mmol/L (98-107); Estimated GFR-MDRD 43; Glucose 192 mg/dL (70-105); Potassium 4.6 mmol/L (3.5-5.1); Sodium 140 mmol/L (136-145)
== END 2019-12-10 13:04 | disposition home or self-care (01) ==
LOC: MADLABSP 13:03
PROVIDERS: ATTEND Family Medicine
DX: R60.0 Localized edema (principal)
CPT/HCPCS: 80048

== ENCOUNTER 2020-01-10 00:57 | Emergency (ER) | payer MEDICARE, OTHER ==
[2020-01-10 01:43] LABS: #Basophils 0.1 thou/uL (0.0-0.2); #Eosinphils 0.6 thou/uL (0.0-0.7); #Lymphocytes 1.9 thou/uL (1.20-3.40); #Monocytes 1.2 thou/uL (0.11-0.59); #Neutrophils 9.1 thou/uL (1.40-6.50); %Basophils 0.9 % (0.0-1.0); %Eosinophils 4.8 % (0.0-10.0); %Lymphocytes 14.4 % (21.0-51.0); %Monocytes 9.4 % (0.0-10.0); %Neutrophils 70.5 % (42.0-75.0); Hemoglobin 11.8 g/dL (14.0-18.0); Mean Corpuscular Hemoglobin 29.7 pg (27.0-31.0); Mean Corpuscular Volume 89.9 fL (78.0-98.0); Mean Platelet Volume 7.3 fL (7.4-10.4); Platelet Count 219 thou/uL (130-400); RBC Distribution Width 12.4 % (11.5-14.5); Red Blood Cell (RBC) Count 3.99 mill/uL (4.70-6.10); White Blood Cell (WBC) Count 12.9 thou/uL (4.8-10.8)
[2020-01-10 01:55] LABS: ALT (SGPT) 15 U/L (8-55); AST (SGOT) 15 U/L (5-34); Albumin 3.8 g/dL (3.5-5.0); Alkaline Phosphatase 75 U/L (40-110); Anion Gap 16 mmol/L (10-20); BUN (Urea Nitrogen) 14 mg/dL (8.4-25.7); Bilirubin, Total 0.3 mg/dL (0.2-1.2); Calc. Creatinine Clearance 0 mL/min (70-130); Calcium 8.7 mg/dL (7.8-10.44); Carbon Dioxide 23 mmol/L (22-29); Chloride 92 mmol/L (98-107); Estimated GFR-MDRD 60; Globulin 2.9 g/dL (2.4-3.5); Glucose 107 mg/dL (70-105); Potassium 3.9 mmol/L (3.5-5.1); Protein, Total 6.7 g/dL (6.0-8.3); Sodium 127 mmol/L (136-145)
[2020-01-10 02:17] LABS: Bilirubin Negative (Negative); Blood, Urine Small (Negative); Clarity Clear (Clear); Glucose, Urine (Dipstick) Negative (Negative); Ketone, Urine Negative (Negative); Leukocyte Large (Negative); Nitrite Negative (Negative); Protein, Urine (Dipstick) 30 mg/dL (Neg-Trace); Urobilinogen 0.2 mg/dL (Less than 2)
[2020-01-10 02:18] LABS: Specific Gravity, Urine 1.003 (1.002-1.036)
[2020-01-10 02:19] LABS: Bacteria/HPF 1+ HPF (None Seen); Squamous Epithelial 0-3 HPF (0-3); WBC/HPF 21-50 HPF (0-3)
[2020-01-10] MEDS ORDERED: Sodium Chloride 0.9% 1,000 ML BAG ONE (06:31)
== END 2020-01-10 03:38 | disposition short-term general hospital (02) ==
LOC: MADERS 00:57
DX: T83.518A Infection and inflammatory reaction due to other urinary catheter, initial encounter (principal); E87.1 Hypo-osmolality and hyponatremia; D72.829 Elevated white blood cell count, unspecified; E78.5 Hyperlipidemia, unspecified; E03.9 Hypothyroidism, unspecified; E78.00 Pure hypercholesterolemia, unspecified; I11.0 Hypertensive heart disease with heart failure; I50.9 Heart failure, unspecified; J44.9 Chronic obstructive pulmonary disease, unspecified; N40.1 Benign prostatic hyperplasia with lower urinary tract symptoms; R33.8 Other retention of urine; F25.9 Schizoaffective disorder, unspecified; F31.9 Bipolar disorder, unspecified; Z87.891 Personal history of nicotine dependence
CPT/HCPCS: 80053; 81003; 81015; 85025; 96365; 96366; J1956; J7050

== ENCOUNTER 2020-01-20 15:15 | Outpatient (CLI) | payer MEDICARE, OTHER ==
[2020-01-20 15:48] LABS: Bilirubin Negative (Negative); Blood, Urine Trace (Negative); Clarity Clear (Clear); Glucose, Urine (Dipstick) Negative (Negative); Ketone, Urine Negative (Negative); Leukocyte Small (Negative); Nitrite Negative (Negative); Protein, Urine (Dipstick) 100 mg/dL (Neg-Trace); Specific Gravity, Urine 1.015 (1.005-1.030); Urobilinogen 0.2 mg/dL (Less than 2); pH, Urine 6.5 (5.0-9.0)
[2020-01-20 15:56] LABS: Bacteria/HPF Rare-Few HPF (None Seen); RBC/HPF 0-3 HPF (0-3); Squamous Epithelial 0-3 HPF (0-3)
== END 2020-01-20 15:16 | disposition home or self-care (01) ==
LOC: MADLABSP 15:15
PROVIDERS: ATTEND Family Medicine
DX: T83.510D Infection and inflammatory reaction due to cystostomy catheter, subsequent encounter (principal); N39.0 Urinary tract infection, site not specified
CPT/HCPCS: 81001

== ENCOUNTER 2020-01-30 21:30 | Emergency (ER) | payer MEDICARE, OTHER ==
[~2020-01-30 21:30] MED LIST changes: +Cefdinir 300 MG CAP ONE; +Finasteride 5 MG TAB ONE; -Sodium Chloride 0.9% 1,000 ML BAG ONE; +traZODone HCl 50 MG TAB ONE
[2020-01-30 22:44] LABS: Bilirubin Negative (Negative); Blood, Urine Small (Negative); Clarity Clear (Clear); Glucose, Urine (Dipstick) 100 mg/dL (Negative); Ketone, Urine Negative (Negative); Leukocyte Small (Negative); Nitrite Negative (Negative); Protein, Urine (Dipstick) Negative (Neg-Trace); Urobilinogen 0.2 mg/dL (Less than 2); pH, Urine 6.5 (5.0-9.0)
[2020-01-30 22:49] LABS: Hemoglobin 12.3 g/dL (14.0-18.0); Mean Corpuscular HGB CONC 33.6 g/dL (32.0-36.0); Mean Corpuscular Hemoglobin 29.5 pg (27.0-31.0); Mean Corpuscular Volume 87.8 fL (78.0-98.0); Mean Platelet Volume 6.9 fL (7.4-10.4); Platelet Count 216 thou/uL (130-400); RBC Distribution Width 12.1 % (11.5-14.5); Red Blood Cell (RBC) Count 4.17 mill/uL (4.70-6.10)
[2020-01-30 22:57] LABS: Bacteria/HPF 2+ HPF (None Seen); Mucous/LPF None Seen LPF (<2+); Squamous Epithelial None Seen HPF (0-3)
[2020-01-30 23:04] LABS: ALT (SGPT) 14 U/L (8-55); AST (SGOT) 13 U/L (5-34); Albumin 3.8 g/dL (3.5-5.0); Alkaline Phosphatase 66 U/L (40-110); Anion Gap 14 mmol/L (10-20); BUN (Urea Nitrogen) 16 mg/dL (8.4-25.7); Bilirubin, Total 0.3 mg/dL (0.2-1.2); Calc. Creatinine Clearance 0 mL/min (70-130); Carbon Dioxide 27 mmol/L (22-29); Chloride 89 mmol/L (98-107); Estimated GFR-MDRD 50; Globulin 2.9 g/dL (2.4-3.5); Glucose 159 mg/dL (70-105); Potassium 4.4 mmol/L (3.5-5.1); Protein, Total 6.7 g/dL (6.0-8.3); Sodium 126 mmol/L (136-145)
[2020-01-30 23:24] LABS: Band 2 % (5-11); Eosinophils 2 % (0-10); Lymphocytes 19 % (21-51); MDiff Complete? YES; Metamyelocyte 2 % (0-0); Monocytes 12 % (0-10); Neutrophil 63 % (42-75); Platelet Morphology Comment Appears Adequate; RBC Morphology Normal
[2020-01-30 23:27] LABS: Acetaminophen Less than 6.0 mcg/mL (10.0-30.0); Alcohol Less than 10 mg/dL (Less than 10); Salicylate Less than 8.0 mg/dL (15.0-30.0)
[2020-01-31] MEDS ORDERED: Sodium Chloride 0.9% 1,000 ML ONE ×2 (00:53→10:15)
[2020-01-31] MEDS ORDERED: cefTRIAXone\\ROCEPHIN 1 GM VIAL ONE (00:54)
[2020-01-31] MEDS ORDERED: Sodium Chloride 0.9% 100 ML ONE (00:55)
[2020-01-31 03:37] LABS: Amphetamine Not Detected (NotDetected); Barbiturates Screen Not Detected (NotDetected); Benzodiazepine Screen Not Detected (NotDetected); Cocaine Metabolite Screen Not Detected (NotDetected); Medtox Control Line Valid? VALID (VALID); Methadone Not Detected (NotDetected); Methamphetamine Not Detected (NotDetected); Opiate Screen Not Detected (NotDetected); Oxycodone Screen Not Detected (NotDetected); Phencyclidine (PCP) Not Detected (NotDetected); THC/Cannabinoid Screen Not Detected (NotDetected); Tricyclic Screen Not Detected (NotDetected)
--- NOTE | 2020-01-31 07:11 | RAD ---
CHEST 1 VIEW: Date: 01/31/2020 INDICATION: History of behavioral health admission requirement chest radiograph. COMPARISON: Prior exam dated 09/26/2019. IMPRESSION: No acute cardiopulmonary abnormality. Examination is not appreciably changed from comparison. POS: [facility]
[2020-01-31 15:40] LABS: SARS-CoV-2 NAA Rapid Test Not Detected (NotDetected)
[2020-01-31] MEDS ORDERED: Lisinopril 10 MG TAB ONE (17:43)
[2020-01-31] MEDS ORDERED: Aspirin Chewable 81 MG TAB ONE (17:43)
[2020-01-31] MEDS ORDERED: Colchicine 0.6 MG TAB ONE (17:43)
[2020-01-31 18:08] LABS: Anion Gap 14 mmol/L (10-20); BUN (Urea Nitrogen) 10 mg/dL (8.4-25.7); Calc. Creatinine Clearance 0 mL/min (70-130); Calcium 8.6 mg/dL (7.8-10.44); Carbon Dioxide 26 mmol/L (22-29); Chloride 101 mmol/L (98-107); Estimated GFR-MDRD 60; Glucose 115 mg/dL (70-105); Potassium 4.5 mmol/L (3.5-5.1); Sodium 136 mmol/L (136-145)
== END 2020-02-01 08:00 ==
LOC: MADERS 21:30
DX: N10 Acute pyelonephritis (principal); E87.1 Hypo-osmolality and hyponatremia; R45.851 Suicidal ideations; E11.9 Type 2 diabetes mellitus without complications; E78.5 Hyperlipidemia, unspecified; J44.9 Chronic obstructive pulmonary disease, unspecified; E78.00 Pure hypercholesterolemia, unspecified; M19.90 Unspecified osteoarthritis, unspecified site; E03.9 Hypothyroidism, unspecified; Z11.59 Encounter for screening for other viral diseases; N40.0 Benign prostatic hyperplasia without lower urinary tract symptoms; I11.0 Hypertensive heart disease with heart failure; I50.9 Heart failure, unspecified; F31.9 Bipolar disorder, unspecified; F25.9 Schizoaffective disorder, unspecified; Z86.73 Personal history of transient ischemic attack (TIA), and cerebral infarction without residual deficits; Z87.891 Personal history of nicotine dependence; Z79.899 Other long term (current) drug therapy; Z79.82 Long term (current) use of aspirin
CPT/HCPCS: 71045; 80048; 80053; 80306; 80307; 82962; 85007; 85027; 87077; 87086; 87186; 93005; 96361; 96365; 99285; U0002; 36416; 81003; 81015; 36415-59; J0696; J3490; J7050

== ENCOUNTER 2020-03-19 15:45 | Emergency (ER) | payer MEDICARE, OTHER ==
--- NOTE | 2020-03-19 16:10 | RAD ---
Exam: Chest one view HISTORY:Dyspnea Comparison: 01/31/2020 FINDINGS: Cardiac silhouette: Normal Aorta: Unremarkable Pulmonary vessels: Normal Costophrenic angles: Clear LUNGS: No masses or consolidation. Pneumothorax: None Osseous abnormalities: None IMPRESSION: No acute cardiopulmonary process.
[2020-03-19 16:30] LABS: Bilirubin Negative (Negative); Blood, Urine Trace (Negative); Glucose, Urine (Dipstick) 100 mg/dL (Negative); Ketone, Urine Negative (Negative); Leukocyte Small (Negative); Nitrite Positive (Negative); Protein, Urine (Dipstick) Negative (Neg-Trace); Urobilinogen 0.2 mg/dL (Less than 2)
[2020-03-19 16:35] LABS: #Basophils 0.1 thou/uL (0.0-0.2); #Eosinphils 0.4 thou/uL (0.0-0.7); #Lymphocytes 1.1 thou/uL (1.20-3.40); #Monocytes 0.8 thou/uL (0.11-0.59); #Neutrophils 7.7 thou/uL (1.40-6.50); %Basophils 0.9 % (0.0-1.0); %Eosinophils 3.6 % (0.0-10.0); %Lymphocytes 10.5 % (21.0-51.0); %Monocytes 8.1 % (0.0-10.0); %Neutrophils 76.9 % (42.0-75.0); Hemoglobin 12.2 g/dL (14.0-18.0); Mean Corpuscular Hemoglobin 29.8 pg (27.0-31.0); Mean Corpuscular Volume 87.9 fL (78.0-98.0); Mean Platelet Volume 7.5 fL (7.4-10.4); Platelet Count 216 thou/uL (130-400); RBC Distribution Width 12.2 % (11.5-14.5)
[2020-03-19 16:37] LABS: Clarity Cloudy (Clear)
[2020-03-19 16:39] LABS: Bacteria/HPF 2+ HPF (None Seen); RBC/HPF 0-3 HPF (0-3); Squamous Epithelial 0-3 HPF (0-3); WBC/HPF 0-3 HPF (0-3)
[2020-03-19 16:45] LABS: ALT (SGPT) 17 U/L (8-55); AST (SGOT) 13 U/L (5-34); Albumin 4.2 g/dL (3.5-5.0); Alkaline Phosphatase 61 U/L (40-110); Anion Gap 16 mmol/L (10-20); BUN (Urea Nitrogen) 28 mg/dL (8.4-25.7); CK (CPK) 214 U/L (30-200); Calc. Creatinine Clearance 0 mL/min (70-130); Calcium 9.3 mg/dL (7.8-10.44); Carbon Dioxide 25 mmol/L (22-29); Chloride 90 mmol/L (98-107); Estimated GFR-MDRD 49; Globulin 2.9 g/dL (2.4-3.5); Glucose 136 mg/dL (70-105); Potassium 4.3 mmol/L (3.5-5.1); Protein, Total 7.1 g/dL (6.0-8.3); Sodium 127 mmol/L (136-145)
[2020-03-19] MEDS ORDERED: Sodium Chloride 0.9% 100 ML ONE (16:52)
[2020-03-19] MEDS ORDERED: Sodium Chloride 0.9% 1,000 ML ONE (16:52)
[2020-03-19] MEDS ORDERED: cefTRIAXone\\ROCEPHIN 2 GM VIAL ONE (16:52)
[2020-03-19 17:35] LABS: Bilirubin, Total 0.2 mg/dL (0.2-1.2)
[2020-03-19] MEDS ORDERED: Vancomycin 1.5 GRAM/300 ML BAG ONE (17:44)
== END 2020-03-19 21:01 | disposition short-term general hospital (02) ==
LOC: MADERS 15:45
DX: T83.511A Infection and inflammatory reaction due to indwelling urethral catheter, initial encounter (principal); E87.1 Hypo-osmolality and hyponatremia; E11.9 Type 2 diabetes mellitus without complications; E78.5 Hyperlipidemia, unspecified; I10 Essential (primary) hypertension; E03.9 Hypothyroidism, unspecified; E78.00 Pure hypercholesterolemia, unspecified; M19.90 Unspecified osteoarthritis, unspecified site; F03.90 Unspecified dementia, unspecified severity, without behavioral disturbance, psychotic disturbance, mood disturbance, and anxiety; J44.9 Chronic obstructive pulmonary disease, unspecified; N40.0 Benign prostatic hyperplasia without lower urinary tract symptoms; F31.9 Bipolar disorder, unspecified; F25.9 Schizoaffective disorder, unspecified; Z86.73 Personal history of transient ischemic attack (TIA), and cerebral infarction without residual deficits; Z87.891 Personal history of nicotine dependence
CPT/HCPCS: 71045; 80053; 81003; 81015; 82550; 83605; 83880; 85025; 87077; 87086; 87186; 94760; 96365; 96366; 96367; J0696; J3370; J3490; J7050

== ENCOUNTER 2020-03-25 10:46 | Emergency (ER) | payer MEDICARE, OTHER ==
[2020-03-25 12:15] LABS: Bilirubin Negative (Negative); Blood, Urine Trace (Negative); Clarity Hazy (Clear); Glucose, Urine (Dipstick) Negative (Negative); Ketone, Urine Negative (Negative); Leukocyte Moderate (Negative); Nitrite Negative (Negative); Protein, Urine (Dipstick) Trace mg/dL (Neg-Trace); Specific Gravity, Urine 1.015 (1.005-1.030); Urobilinogen 0.2 mg/dL (Less than 2)
[2020-03-25 12:20] LABS: Bacteria/HPF 1+ HPF (None Seen); RBC/HPF 0-3 HPF (0-3); Squamous Epithelial 0-3 HPF (0-3); WBC/HPF 21-50 HPF (0-3)
[2020-03-25 12:34] LABS: #Basophils 0.2 thou/uL (0.0-0.2); #Eosinphils 0.8 thou/uL (0.0-0.7); #Lymphocytes 1.1 thou/uL (1.20-3.40); #Monocytes 0.7 thou/uL (0.11-0.59); #Neutrophils 8.1 thou/uL (1.40-6.50); %Basophils 1.5 % (0.0-1.0); %Eosinophils 7.7 % (0.0-10.0); %Lymphocytes 9.8 % (21.0-51.0); %Monocytes 6.3 % (0.0-10.0); %Neutrophils 74.7 % (42.0-75.0); Hemoglobin 12.9 g/dL (14.0-18.0); Mean Corpuscular HGB CONC 33.9 g/dL (32.0-36.0); Mean Corpuscular Hemoglobin 29.7 pg (27.0-31.0); Mean Corpuscular Volume 87.6 fL (78.0-98.0); Mean Platelet Volume 6.9 fL (7.4-10.4); Platelet Count 256 thou/uL (130-400); RBC Distribution Width 12.2 % (11.5-14.5); Red Blood Cell (RBC) Count 4.36 mill/uL (4.70-6.10); White Blood Cell (WBC) Count 10.9 thou/uL (4.8-10.8)
[2020-03-25 12:48] LABS: ALT (SGPT) 24 U/L (8-55); AST (SGOT) 21 U/L (5-34); Albumin 4.3 g/dL (3.5-5.0); Alkaline Phosphatase 66 U/L (40-110); Anion Gap 18 mmol/L (10-20); BUN (Urea Nitrogen) 20 mg/dL (8.4-25.7); Bilirubin, Total 0.3 mg/dL (0.2-1.2); Calc. Creatinine Clearance 0 mL/min (70-130); Calcium 9.5 mg/dL (7.8-10.44); Carbon Dioxide 25 mmol/L (22-29); Chloride 95 mmol/L (98-107); Estimated GFR-MDRD 48; Globulin 3.3 g/dL (2.4-3.5); Glucose 120 mg/dL (70-105); Magnesium 1.9 mg/dL (1.6-2.6); Potassium 4.5 mmol/L (3.5-5.1); Protein, Total 7.6 g/dL (6.0-8.3); Sodium 133 mmol/L (136-145)
[2020-03-25] MEDS ORDERED: Sulfameth/Trimethoprim DS 800-160mg TAB ONE (13:07)
== END 2020-03-25 13:14 | disposition home or self-care (01) ==
LOC: MADERS 10:46
DX: N39.0 Urinary tract infection, site not specified (principal); R00.2 Palpitations; R53.1 Weakness; R42 Dizziness and giddiness; E11.9 Type 2 diabetes mellitus without complications; E78.5 Hyperlipidemia, unspecified; I11.0 Hypertensive heart disease with heart failure; I50.9 Heart failure, unspecified; E03.9 Hypothyroidism, unspecified; E78.00 Pure hypercholesterolemia, unspecified; J44.9 Chronic obstructive pulmonary disease, unspecified; N40.0 Benign prostatic hyperplasia without lower urinary tract symptoms; F03.90 Unspecified dementia, unspecified severity, without behavioral disturbance, psychotic disturbance, mood disturbance, and anxiety; F31.9 Bipolar disorder, unspecified; Z87.891 Personal history of nicotine dependence; Z86.73 Personal history of transient ischemic attack (TIA), and cerebral infarction without residual deficits; Z79.82 Long term (current) use of aspirin; Z79.899 Other long term (current) drug therapy
CPT/HCPCS: 81003; 81015; 83605; 83735; 83880; 84484; 85025; 93005

== ENCOUNTER 2020-04-08 16:54 | Emergency (ER) | payer MEDICARE, OTHER ==
[2020-04-08 18:01] LABS: #Basophils 0.2 thou/uL (0.0-0.2); #Eosinphils 0.9 thou/uL (0.0-0.7); #Lymphocytes 1.4 thou/uL (1.20-3.40); #Monocytes 0.9 thou/uL (0.11-0.59); #Neutrophils 8.6 thou/uL (1.40-6.50); %Basophils 1.4 % (0.0-1.0); %Eosinophils 7.9 % (0.0-10.0); %Lymphocytes 11.6 % (21.0-51.0); %Monocytes 7.2 % (0.0-10.0); Hemoglobin 14.5 g/dL (14.0-18.0); Mean Corpuscular HGB CONC 33.8 g/dL (32.0-36.0); Mean Corpuscular Hemoglobin 30.4 pg (27.0-31.0); Mean Platelet Volume 8.2 fL (7.4-10.4); Platelet Count 247 thou/uL (130-400); RBC Distribution Width 12.6 % (11.5-14.5); Red Blood Cell (RBC) Count 4.77 mill/uL (4.70-6.10); White Blood Cell (WBC) Count 11.9 thou/uL (4.8-10.8)
[2020-04-08 18:03] LABS: Bilirubin Negative (Negative); Blood, Urine Trace (Negative); Glucose, Urine (Dipstick) 500 mg/dL (Negative); Ketone, Urine Negative (Negative); Leukocyte Large (Negative); Nitrite Negative (Negative); Protein, Urine (Dipstick) > or equal to 300 mg/dL (Neg-Trace); Urobilinogen 0.2 mg/dL (Less than 2)
[2020-04-08 18:07] LABS: Clarity Hazy (Clear)
[2020-04-08 18:09] LABS: Squamous Epithelial None Seen HPF (0-3); WBC/HPF Greater Than 50 HPF (0-3)
[2020-04-08 18:10] LABS: Bacteria/HPF 3+ HPF (None Seen)
[2020-04-08 18:16] LABS: ALT (SGPT) 25 U/L (8-55); AST (SGOT) 20 U/L (5-34); Albumin 4.3 g/dL (3.5-5.0); Alkaline Phosphatase 81 U/L (40-110); Anion Gap 20 mmol/L (10-20); BUN (Urea Nitrogen) 16 mg/dL (8.4-25.7); Bilirubin, Total 0.3 mg/dL (0.2-1.2); Calc. Creatinine Clearance 0 mL/min (70-130); Calcium 9.2 mg/dL (7.8-10.44); Carbon Dioxide 23 mmol/L (22-29); Chloride 98 mmol/L (98-107); Estimated GFR-MDRD 43; Globulin 3.9 g/dL (2.4-3.5); Glucose 224 mg/dL (70-105); Potassium 4.2 mmol/L (3.5-5.1); Protein, Total 8.2 g/dL (6.0-8.3); Sodium 137 mmol/L (136-145)
--- NOTE | 2020-04-08 18:16 | RAD ---
TWO VIEW CHEST 04/08/20 HISTORY: Tachycardia. Lungs are clear. No infiltrate or vascular congestion. Heart size is normal. Osseous structures unrem arkable. IMPRESSION: Unremarkable chest. POS: [facility]
[2020-04-08] MEDS ORDERED: Sodium Chloride 0.9% 100 ML ONE (18:40)
[2020-04-08] MEDS ORDERED: Vancomycin 1.5 GRAM/300 ML BAG ONE (18:40)
[2020-04-08] MEDS ORDERED: cefTRIAXone\\ROCEPHIN 2 GM VIAL ONE (18:40)
== END 2020-04-08 19:54 | disposition short-term general hospital (02) ==
LOC: MADERS 16:54
DX: A41.9 Sepsis, unspecified organism (principal); N39.0 Urinary tract infection, site not specified; F03.90 Unspecified dementia, unspecified severity, without behavioral disturbance, psychotic disturbance, mood disturbance, and anxiety; J44.9 Chronic obstructive pulmonary disease, unspecified; E78.5 Hyperlipidemia, unspecified; E11.9 Type 2 diabetes mellitus without complications; E03.9 Hypothyroidism, unspecified; E78.00 Pure hypercholesterolemia, unspecified; I11.0 Hypertensive heart disease with heart failure; I50.9 Heart failure, unspecified; M19.90 Unspecified osteoarthritis, unspecified site; F31.9 Bipolar disorder, unspecified; F25.9 Schizoaffective disorder, unspecified; Z87.891 Personal history of nicotine dependence; Z86.73 Personal history of transient ischemic attack (TIA), and cerebral infarction without residual deficits; Z79.82 Long term (current) use of aspirin; Z79.899 Other long term (current) drug therapy
CPT/HCPCS: 36415; 71046; 80053; 81003; 81015; 83605; 84484; 85025; 86140; 87040; 94760; 96365; 96375; J0696; J3370; J3490

== ENCOUNTER 2020-04-12 16:25 | Inpatient (IN) | payer MEDICARE, OTHER ==
[2020-04-12] MEDS ORDERED: Ventolin HFA Inhaler 60 PUFF INHALER INH PRN (18:46)
[2020-04-12] MEDS: traZODone HCl 50 MG TAB PO SCH (21:10)
[2020-04-12] MEDS: risperiDONE 1 MG TAB PO SCH (21:10)
[2020-04-12] MEDS: Senokot S 8.6-50 MG TAB PO SCH (21:10)
[2020-04-12] MEDS: Amlodipine 5 MG TAB PO SCH (21:11)
[2020-04-12] MEDS: Atorvastatin Calcium 10 MG TAB PO SCH (21:11)
[2020-04-12] MEDS: Donepezil HCl 10 MG TAB PO SCH (21:11)
[2020-04-12] MEDS: HYDROcodone/Acetaminophen 5/325 mg Tablet PO PRN (21:12)
[2020-04-12] MEDS: Mometasone/Formoterol 200/5 60 PUFF INH SCH (21:16)
[2020-04-12] MEDS ORDERED: Cefepime 1 GM VIAL IVPB SCH (23:00)
[2020-04-12] MEDS: Cefepime 1 GM in Sodium Chloride 0.9% 100 ML IVPB SCH (23:10)
--- NOTE | 2020-04-13 03:26 | HP ---
INFECTIOUS DISEASE: Dr. Mnazanares. REASON FOR ADMISSION: IV antibiotic management for 4 weeks in [facility] [place]. HISTORY OF THE PRESENT ILLNESS AND HOSPITAL COURSE: Mr. Shook is a 60-year-old male with significant history of multiple chronic medical conditions including BPH with urinary obstructive symptoms, requiring insertion of suprapubic catheter in 2013, DM2, CKD 3. he gao s history of recurrent UTI. with previous Urosepsis. He is being followed by Dr. Dailey for urology care for this. He is followed by his urologist regularly and gets suprapubic catheter changed every 2- 4 weeks. He takes care of his catheter at home and home health usually helps him with this. He has been admitted 3 times this last March and the last time was on 04/08/2020 at [facility].The patient had another episode of urinary tract infection with concern of sepsis requiring in patient management at [facility]. During this last admission, the patient's urine had a growth of Pseudomonas. The patient presented with general weakness, nausea, chills and , high-grade fever. He was seen by Dr. Manzanares and the patient was started on cefepime for 4 weeks through PICC line. Patient was transferred to [facility] on 04/12/20 to complete IV antibiotic. When seen today, the patient is awake, alert, oriented. He is able to contribute to his history. He reports that he feels a little better now. He has been febrile free but remains generally weak. States he could hardly get up and walk without help. He also report that he is past due for suprapubic catheter change as it has been more than 4 weeks now. He reports having pain mostly on his lower back needing pain medication, every now and then. His baseline functional status is he can transfer on his own and can walk with the use of a rolling walker. He eats fine and sleeps good. He has a COVID-19 screen in the hospital and came back negative. He reports no other issues at this time. He is just wanting to make sure that he would finish his antibiotic for 4 weeks as was told by his Infectious Disease specialist He is also wanting to know if he needs to set up appointment for followup with Dr. Manzanares and wanted to make sure that he gets rid of this infection. PAST MEDICAL HISTORY: 1. Chronic hyponatremia. 2. Diabetes type 2, well controlled with oral hypoglycemic agent monotherapy only. 3. CKD stage 3. 4. Hyperlipidemia. 5. DJD. 6. Schizophrenia with psychosis and paranoia, followed by psych [place], Dr. Reyna. 7. Left atrophic kidney. 8. History of right hydronephrosis. 9. Fatty liver disease. 10. BPH with obstructive symptoms. 11. Neurogenic bladder, status post suprapubic catheter placement in 2018. 12. Chronic low back pain. 13. Colon polyp. 14. Hypothyroidism. 15. Dementia, alcohol induced. 16. Chronic depression/anxiety. 17. History of right epididymitis. 18. COPD. SURGICAL HISTORY: Left lateral meniscus repair, renal surgery, colonoscopy 2010. FAMILY HISTORY: Mother is alive. Father is . SOCIAL HISTORY: The patient is single. He lives alone in his apartment in [place]. He admits to chronic alcohol use. Denies history of withdrawal syndrome. Denies smoking. Denies illicit drug use. ALLERGIES: TO PAMELOR, NAVANE, CIPRO. PREVIOUS HOSPITALIZATIONS: 1. Vesicoureteral reflux-related surgeries when he was a kid. 2. History of suprapubic catheter since 2013. 3. History of renal surgery. 4. History of voluntary psych admission in [facility] 12/2016. 5. Epididymitis with no acid 03/2019. 6. Psych issues hospitalized in [facility] 02/08/2020. MEDICATIONS: 1. Trazodone 100 mg p.o. at bedtime. 2. Risperidone 3 mg p.o. at bedtime. 3. Glipizide XL 2.5 mg q.a.m. 4. Docusate sodium 1 tablet p.o. b.i.d. 5. Florastor 500 mg p.o. daily. 6. Pravastatin 40 mg p.o. at bedtime. 7. Potassium chloride 20 mEq p.o. daily. 8. Multivitamin 1 cap daily. 9. Lisinopril 2.5 mg p.o. daily. 10. Levothyroxine 25 mcg p.o. daily. 11. DuoNeb 3 mL inhaled b.i.d. 12. Furosemide 40 mg p.o. q.a.m. 13. Finasteride 5 mg p.o. daily. 14. Fluoxetine 40 mg p.o. daily. 15. Donepezil 10 mg p.o. at bedtime. 16. Vitamin D 1000 mg p.o. daily. 17. Cefepime 1 g IV 11 o'clock and 2300 b.i.d. 18. Symbicort 160/4.5 two puffs inhaled b.i.d. 19. Benztropine 1 mg p.o. daily. 20. Aspirin 81 mg p.o. daily. 21. Amlodipine 5 mg p.o. at bedtime. 22. Acetaminophen 325 mg p.o. q.4 p.r.n. REVIEW OF SYSTEMS: GENERAL: Denies recurrence of fever, chills. Reports fatigue and general weakness. HEENT: Denies acute visual changes or hearing changes, cold symptoms. RESPIRATORY: No cough, sputum production, pain with breathing, active wheezing, or shortness of breath. CARDIAC: Denies chest pain, cyanosis. Reports intermittent leg edema and dyspnea on exertion. Denies paroxysmal nocturnal dyspnea. GI: No nausea, vomiting, abdominal pain, diarrhea, rectal bleeding, melena, hematemesis, hematochezia. Reports constipation. GENITOURINARY: As per HPI. Denies bloody urine, perineal sores. MUSCULOSKELETAL: Reports intermittent arthralgia mostly of the back. NEUROLOGIC: Denies headache, seizures, tics, tremors. Reports memory gap. PSYCHIATRIC: Reports depressive symptoms, anxiety, and moods have been stable with current medications. Denies hallucination, suicidal thoughts, ideations, or plan. SKIN: Denies pruritus, skin rashes, or lesions. PHYSICAL EXAMINATION: VITAL SIGNS: Blood pressure 108/76, temp 98, pulse 87, respirations 18, O2 saturation 96% on room air, weight 275 pounds and 1 ounce, height 5 feet 9 inches. GENERAL: The patient is awake, alert, oriented x3. Not in distress. HEENT: atraumatic. PERRL. Intact EOM. Anicteric sclerae. moist oral mucosa NECK: Supple. No LAD. Flat JVD. No carotid bruit. CHEST: Normal excursion. Clear to auscultation bilaterally. No rales. No crackles. No wheezing. ABDOMEN: Obese. Normoactive bowel sounds. Nondistended, nontender. No rebound or guarding. Negative CVA tenderness bilaterally. EXTREMITIES: Trace bipedal edema. No cyanosis. No joint effusions. No erythema. SKIN: Intact. No rashes. No lesions. Good turgor. GENITOURINARY: Suprapubic catheter in place with 500 mL clear edin urine per Hannah cath bag. NEUROLOGIC: Nonfocal. Spontaneous speech. Gait unsteady. ASSESSMENT AND PLAN: 1. Complicated urinary tract infection with Pseudomonas, requiring long-term IV antibiotic management. 2. Deconditioning secondary to general weakness. 3. Benign prostatic hyperplasia. 4. Neurogenic bladder, requiring suprapubic catheter. 5. Chronic diastolic congestive heart failure, compensated. 6. Diabetes type 2. 7. Dyslipidemia. 8. Hypertension. 9. Hypothyroidism. 10. Chronic obstructive pulmonary disease. 11. Chronic kidney disease stage 3. 12. Bipolar disorder. 13. Anxiety and depression. 14. Schizoaffective disorder. 15. Morbid obesity with BMI 40 to 44. 16. Suprapubic in place. The patient is admitted to [facility] [place] to complete IV antibiotic for 4 weeks as prescribed/recommended by Infectious Disease specialist for complicated urinary tract infection associated with suprapubic catheter in place. We will continue cefepime for 4 weeks as scheduled Serial blood work q weekly. Follow up with Dr. Manzanares thereafter. Change suprapubic cath now then q 4 weeks. PT and OT eval and treat Continue current medications as modified per list. Accu-Chek q.a.m. with hypoglycemic precautions. Gastrointestinal prophylaxis with PPI. Deep venous thrombosis prophylaxis with SCD. Further recommendations depending on the hospital course. Code status, the patient reports FULL CODE. DISPOSITION: Home per the patient. Job ID: [id number] MTDD
[2020-04-13] MEDS: Levothyroxine Sodium 25 MCG TAB PO SCH (05:20)
[2020-04-13 07:48] LABS: White Blood Cell (WBC) Count 9.6 thou/uL (4.8-10.8)
[2020-04-13 07:49] LABS: #Lymphocytes 1.5 thou/uL (1.20-3.40); #Monocytes 0.8 thou/uL (0.11-0.59); #Neutrophils 6.3 thou/uL (1.40-6.50); %Basophils 1.3 % (0.0-1.0); %Eosinophils 8.2 % (0.0-10.0); %Lymphocytes 15.9 % (21.0-51.0); %Monocytes 9.2 % (0.0-10.0); %Neutrophils 65.4 % (42.0-75.0); Hemoglobin 13.7 g/dL (14.0-18.0); Mean Corpuscular HGB CONC 32.6 g/dL (32.0-36.0); Mean Corpuscular Hemoglobin 29.5 pg (27.0-31.0); Mean Corpuscular Volume 90.7 fL (78.0-98.0); Mean Platelet Volume 7.6 fL (7.4-10.4); Platelet Count 209 thou/uL (130-400); RBC Distribution Width 12.8 % (11.5-14.5); Red Blood Cell (RBC) Count 4.62 mill/uL (4.70-6.10)
[2020-04-13 07:50] LABS: #Basophils 0.1 thou/uL (0.0-0.2); #Eosinphils 0.8 thou/uL (0.0-0.7)
[2020-04-13] MEDS: Mometasone/Formoterol 200/5 60 PUFF INH SCH ×2 (08:33→20:59)
[2020-04-13] MEDS: HYDROcodone/Acetaminophen 5/325 mg Tablet PO PRN ×2 (08:33→19:05)
[2020-04-13] MEDS: Aspirin 81 mg Enteric Coated Tablet PO SCH (08:35)
[2020-04-13] MEDS: Senokot S 8.6-50 MG TAB PO SCH ×2 (08:35→21:00)
[2020-04-13] MEDS: Cholecalciferol 1,000 UNITS (25 MCG) TAB PO SCH (08:35)
[2020-04-13] MEDS: Saccharomyces boulardii 250 MG CAP PO SCH (08:35)
[2020-04-13] MEDS: FLUoxetine HCl 20 MG CAP PO SCH (08:35)
[2020-04-13] MEDS: Potassium Chloride 20 MEQ TAB PO SCH (08:35)
[2020-04-13 08:36] LABS: ALT (SGPT) 25 U/L (8-55); AST (SGOT) 18 U/L (5-34); Albumin 3.9 g/dL (3.5-5.0); Alkaline Phosphatase 86 U/L (40-110); Anion Gap 18 mmol/L (10-20); BUN (Urea Nitrogen) 24 mg/dL (8.4-25.7); Bilirubin, Total 0.5 mg/dL (0.2-1.2); Calc. Creatinine Clearance 81 mL/min (70-130); Calcium 9.4 mg/dL (7.8-10.44); Carbon Dioxide 24 mmol/L (22-29); Chloride 99 mmol/L (98-107); Estimated GFR-MDRD 41; Globulin 3.4 g/dL (2.4-3.5); Glucose 144 mg/dL (70-105); Potassium 4.4 mmol/L (3.5-5.1); Protein, Total 7.3 g/dL (6.0-8.3); Sodium 137 mmol/L (136-145)
[2020-04-13] MEDS: Benztropine 1 MG TAB PO SCH (08:36)
[2020-04-13] MEDS: Lisinopril 5 MG TAB PO SCH (08:36)
[2020-04-13] MEDS: Multivit, Therapeutic 1 TAB PO SCH (08:36)
[2020-04-13] MEDS: Finasteride 5 MG TAB PO SCH (08:36)
[2020-04-13] MEDS ORDERED: FLU VACC QS2020-21(6MOS UP)/PF 60 MCG/0.5 ML SYRINGE IM ONE (09:00)
[2020-04-13] MEDS ORDERED: Furosemide 20 MG TAB PO SCH (09:00)
[2020-04-13] MEDS: Cefepime 1 GM in Sodium Chloride 0.9% 100 ML IVPB SCH ×2 (11:10→11:42)
[2020-04-13] MEDS ORDERED: Albuterol 200 PUFF (6.7GM INHALER) INH PRN (14:33)
[2020-04-13] MEDS: Amlodipine 5 MG TAB PO SCH (21:00)
[2020-04-13] MEDS: traZODone HCl 50 MG TAB PO SCH (21:00)
[2020-04-13] MEDS: risperiDONE 1 MG TAB PO SCH (21:00)
[2020-04-13] MEDS: Atorvastatin Calcium 10 MG TAB PO SCH (21:01)
[2020-04-13] MEDS: Donepezil HCl 10 MG TAB PO SCH (21:01)
[2020-04-14] MEDS: HYDROcodone/Acetaminophen 5/325 mg Tablet PO PRN ×3 (05:11→21:34)
[2020-04-14] MEDS: Levothyroxine Sodium 25 MCG TAB PO SCH (05:12)
[2020-04-14] MEDS: Senokot S 8.6-50 MG TAB PO SCH ×2 (08:20→21:35)
[2020-04-14] MEDS: Cholecalciferol 1,000 UNITS (25 MCG) TAB PO SCH (08:20)
[2020-04-14] MEDS: Potassium Chloride 20 MEQ TAB PO SCH (08:20)
[2020-04-14] MEDS: Saccharomyces boulardii 250 MG CAP PO SCH (08:20)
[2020-04-14] MEDS: Aspirin 81 mg Enteric Coated Tablet PO SCH (08:20)
[2020-04-14] MEDS: Lisinopril 5 MG TAB PO SCH (08:21)
[2020-04-14] MEDS: Multivit, Therapeutic 1 TAB PO SCH (08:21)
[2020-04-14] MEDS: FLUoxetine HCl 20 MG CAP PO SCH (08:21)
[2020-04-14] MEDS: Benztropine 1 MG TAB PO SCH (08:21)
[2020-04-14] MEDS: Finasteride 5 MG TAB PO SCH (08:22)
[2020-04-14] MEDS: Mometasone/Formoterol 200/5 60 PUFF INH SCH ×2 (08:23→21:00)
[2020-04-14] MEDS: Acetaminophen 325 MG TAB PO PRN ×3 (08:56→19:45)
[2020-04-14] MEDS: Cefepime 1 GM in Sodium Chloride 0.9% 100 ML IVPB SCH ×2 (11:55→23:39)
[2020-04-14] MEDS: Amlodipine 5 MG TAB PO SCH (21:35)
[2020-04-14] MEDS: risperiDONE 1 MG TAB PO SCH (21:35)
[2020-04-14] MEDS: Donepezil HCl 10 MG TAB PO SCH (21:36)
[2020-04-14] MEDS: traZODone HCl 50 MG TAB PO SCH (21:36)
[2020-04-14] MEDS: Atorvastatin Calcium 10 MG TAB PO SCH (21:36)
[2020-04-15] MEDS: Levothyroxine Sodium 25 MCG TAB PO SCH (06:19)
[2020-04-15] MEDS: Finasteride 5 MG TAB PO SCH (08:12)
[2020-04-15] MEDS: Aspirin 81 mg Enteric Coated Tablet PO SCH (08:12)
[2020-04-15] MEDS: FLUoxetine HCl 20 MG CAP PO SCH (08:12)
[2020-04-15] MEDS: Lisinopril 5 MG TAB PO SCH (08:13)
[2020-04-15] MEDS: Senokot S 8.6-50 MG TAB PO SCH ×2 (08:13→20:04)
[2020-04-15] MEDS: Cholecalciferol 1,000 UNITS (25 MCG) TAB PO SCH (08:14)
[2020-04-15] MEDS: Potassium Chloride 20 MEQ TAB PO SCH (08:14)
[2020-04-15] MEDS: Benztropine 1 MG TAB PO SCH (08:15)
[2020-04-15] MEDS: Saccharomyces boulardii 250 MG CAP PO SCH (08:19)
[2020-04-15] MEDS: Mometasone/Formoterol 200/5 60 PUFF INH SCH ×2 (08:26→20:05)
[2020-04-15] MEDS: HYDROcodone/Acetaminophen 5/325 mg Tablet PO PRN ×2 (08:58→16:58)
[2020-04-15] MEDS: Multivit, Therapeutic 1 TAB PO SCH (09:13)
[2020-04-15] MEDS: Cefepime 1 GM in Sodium Chloride 0.9% 100 ML IVPB SCH ×2 (11:36→23:33)
[2020-04-15] MEDS: Acetaminophen 325 MG TAB PO PRN ×2 (13:53→19:33)
[2020-04-15] MEDS: Donepezil HCl 10 MG TAB PO SCH (20:03)
[2020-04-15] MEDS: traZODone HCl 50 MG TAB PO SCH (20:04)
[2020-04-15] MEDS: Atorvastatin Calcium 10 MG TAB PO SCH (20:04)
[2020-04-15] MEDS: Amlodipine 5 MG TAB PO SCH (20:04)
[2020-04-15] MEDS: risperiDONE 1 MG TAB PO SCH (20:04)
[2020-04-16] MEDS: HYDROcodone/Acetaminophen 5/325 mg Tablet PO PRN ×3 (05:06→21:27)
[2020-04-16] MEDS: Levothyroxine Sodium 25 MCG TAB PO SCH (05:08)
[2020-04-16] MEDS: Potassium Chloride 20 MEQ TAB PO SCH (08:40)
[2020-04-16] MEDS: Aspirin 81 mg Enteric Coated Tablet PO SCH (08:40)
[2020-04-16] MEDS: Mometasone/Formoterol 200/5 60 PUFF INH SCH ×2 (08:40→21:31)
[2020-04-16] MEDS: Senokot S 8.6-50 MG TAB PO SCH ×2 (08:41→21:30)
[2020-04-16] MEDS: Benztropine 1 MG TAB PO SCH (08:41)
[2020-04-16] MEDS: Cholecalciferol 1,000 UNITS (25 MCG) TAB PO SCH (08:41)
[2020-04-16] MEDS: Saccharomyces boulardii 250 MG CAP PO SCH (08:41)
[2020-04-16] MEDS: Multivit, Therapeutic 1 TAB PO SCH (08:41)
[2020-04-16] MEDS: Finasteride 5 MG TAB PO SCH (08:41)
[2020-04-16] MEDS: FLUoxetine HCl 20 MG CAP PO SCH (08:41)
[2020-04-16] MEDS: Lisinopril 5 MG TAB PO SCH (08:42)
[2020-04-16] MEDS: Cefepime 1 GM in Sodium Chloride 0.9% 100 ML IVPB SCH (10:50)
[2020-04-16] MEDS: risperiDONE 1 MG TAB PO SCH (21:30)
[2020-04-16] MEDS: traZODone HCl 50 MG TAB PO SCH (21:30)
[2020-04-16] MEDS: Amlodipine 5 MG TAB PO SCH (21:30)
[2020-04-16] MEDS: Donepezil HCl 10 MG TAB PO SCH (21:31)
[2020-04-16] MEDS: Atorvastatin Calcium 10 MG TAB PO SCH (21:31)
[2020-04-17] MEDS: Levothyroxine Sodium 25 MCG TAB PO SCH (05:57)
[2020-04-17] MEDS: Cholecalciferol 1,000 UNITS (25 MCG) TAB PO SCH (08:38)
[2020-04-17] MEDS: Saccharomyces boulardii 250 MG CAP PO SCH (08:38)
[2020-04-17] MEDS: HYDROcodone/Acetaminophen 5/325 mg Tablet PO PRN ×2 (08:38→17:15)
[2020-04-17] MEDS: Senokot S 8.6-50 MG TAB PO SCH ×2 (08:38→20:02)
[2020-04-17] MEDS: Aspirin 81 mg Enteric Coated Tablet PO SCH (08:39)
[2020-04-17] MEDS: FLUoxetine HCl 20 MG CAP PO SCH (08:39)
[2020-04-17] MEDS: Multivit, Therapeutic 1 TAB PO SCH (08:39)
[2020-04-17] MEDS: Benztropine 1 MG TAB PO SCH (08:39)
[2020-04-17] MEDS: Lisinopril 5 MG TAB PO SCH (08:39)
[2020-04-17] MEDS: Finasteride 5 MG TAB PO SCH (08:39)
[2020-04-17] MEDS: Potassium Chloride 20 MEQ TAB PO SCH (08:40)
[2020-04-17] MEDS: Mometasone/Formoterol 200/5 60 PUFF INH SCH ×2 (08:40→20:01)
[2020-04-17] MEDS: Cefepime 1 GM in Sodium Chloride 0.9% 100 ML IVPB SCH ×3 (10:46→23:48)
[2020-04-17] MEDS ORDERED: risperiDONE 1 MG TAB PO SCH ×2 (13:45→14:30)
[2020-04-17] MEDS ORDERED: Divalproex Sodium 250 MG (DR) TAB PO SCH (14:30)
[2020-04-17] MEDS: traZODone HCl 50 MG TAB PO SCH (20:02)
[2020-04-17] MEDS: risperiDONE 1 MG TAB PO SCH (20:02)
[2020-04-17] MEDS: Atorvastatin Calcium 10 MG TAB PO SCH (20:02)
[2020-04-17] MEDS: Amlodipine 5 MG TAB PO SCH (20:03)
[2020-04-17] MEDS: Donepezil HCl 10 MG TAB PO SCH (20:03)
[2020-04-17] MEDS: Divalproex Sodium 250 MG (DR) TAB PO SCH (20:03)
[2020-04-18] MEDS: HYDROcodone/Acetaminophen 5/325 mg Tablet PO PRN ×2 (06:04→16:18)
[2020-04-18] MEDS: Levothyroxine Sodium 25 MCG TAB PO SCH (06:04)
[2020-04-18] MEDS: Mometasone/Formoterol 200/5 60 PUFF INH SCH ×2 (08:20→21:48)
[2020-04-18] MEDS: Aspirin 81 mg Enteric Coated Tablet PO SCH (08:23)
[2020-04-18] MEDS: Divalproex Sodium 250 MG (DR) TAB PO SCH ×2 (08:23→21:47)
[2020-04-18] MEDS: Benztropine 1 MG TAB PO SCH (08:23)
[2020-04-18] MEDS: Cholecalciferol 1,000 UNITS (25 MCG) TAB PO SCH (08:23)
[2020-04-18] MEDS: Lisinopril 5 MG TAB PO SCH (08:24)
[2020-04-18] MEDS: FLUoxetine HCl 20 MG CAP PO SCH (08:24)
[2020-04-18] MEDS: Finasteride 5 MG TAB PO SCH (08:24)
[2020-04-18] MEDS: Potassium Chloride 20 MEQ TAB PO SCH (08:25)
[2020-04-18] MEDS: Multivit, Therapeutic 1 TAB PO SCH (08:25)
[2020-04-18] MEDS: Senokot S 8.6-50 MG TAB PO SCH ×2 (08:25→21:46)
[2020-04-18] MEDS: risperiDONE 1 MG TAB PO SCH ×2 (08:25→21:46)
[2020-04-18] MEDS: Saccharomyces boulardii 250 MG CAP PO SCH (08:26)
[2020-04-18] MEDS: Cefepime 1 GM in Sodium Chloride 0.9% 100 ML IVPB SCH ×2 (11:17→22:40)
[2020-04-18] MEDS ORDERED: Activase 2 MG VIAL CATH SCH (21:45)
[2020-04-18] MEDS ORDERED: Sterile Water 10 ML VIAL IVP SCH (21:45)
[2020-04-18] MEDS: Atorvastatin Calcium 10 MG TAB PO SCH (21:46)
[2020-04-18] MEDS: Donepezil HCl 10 MG TAB PO SCH (21:46)
[2020-04-18] MEDS: traZODone HCl 50 MG TAB PO SCH (21:47)
[2020-04-18] MEDS: Amlodipine 5 MG TAB PO SCH (21:47)
[2020-04-18] MEDS ORDERED: Sterile Water 10 ML ONE (21:55)
[2020-04-19] MEDS: HYDROcodone/Acetaminophen 5/325 mg Tablet PO PRN ×2 (06:08→16:30)
[2020-04-19] MEDS: Levothyroxine Sodium 25 MCG TAB PO SCH (06:11)
[2020-04-19] MEDS: Mometasone/Formoterol 200/5 60 PUFF INH SCH ×2 (08:30→20:01)
[2020-04-19] MEDS: Aspirin 81 mg Enteric Coated Tablet PO SCH (08:32)
[2020-04-19] MEDS: Finasteride 5 MG TAB PO SCH (08:32)
[2020-04-19] MEDS: FLUoxetine HCl 20 MG CAP PO SCH (08:32)
[2020-04-19] MEDS: Cholecalciferol 1,000 UNITS (25 MCG) TAB PO SCH (08:32)
[2020-04-19] MEDS: Benztropine 1 MG TAB PO SCH (08:32)
[2020-04-19] MEDS: Multivit, Therapeutic 1 TAB PO SCH (08:32)
[2020-04-19] MEDS: Senokot S 8.6-50 MG TAB PO SCH ×2 (08:32→20:03)
[2020-04-19] MEDS: Lisinopril 5 MG TAB PO SCH (08:33)
[2020-04-19] MEDS: Potassium Chloride 20 MEQ TAB PO SCH (08:33)
[2020-04-19] MEDS: risperiDONE 1 MG TAB PO SCH ×2 (08:33→20:01)
[2020-04-19] MEDS: Divalproex Sodium 250 MG (DR) TAB PO SCH ×2 (08:34→20:02)
[2020-04-19] MEDS: Saccharomyces boulardii 250 MG CAP PO SCH (08:37)
[2020-04-19] MEDS: Cefepime 1 GM in Sodium Chloride 0.9% 100 ML IVPB SCH ×2 (11:04→23:52)
[2020-04-19] MEDS: Donepezil HCl 10 MG TAB PO SCH (20:02)
[2020-04-19] MEDS: Amlodipine 5 MG TAB PO SCH (20:02)
[2020-04-19] MEDS: traZODone HCl 50 MG TAB PO SCH (20:02)
[2020-04-19] MEDS: Atorvastatin Calcium 10 MG TAB PO SCH (20:02)
[2020-04-20] MEDS: Levothyroxine Sodium 25 MCG TAB PO SCH (05:46)
[2020-04-20] MEDS: HYDROcodone/Acetaminophen 5/325 mg Tablet PO PRN ×3 (05:52→23:30)
[2020-04-20 07:42] LABS: #Basophils 0.1 thou/uL (0.0-0.2); #Eosinphils 0.6 thou/uL (0.0-0.7); #Lymphocytes 1.3 thou/uL (1.20-3.40); #Monocytes 0.7 thou/uL (0.11-0.59); #Neutrophils 6.7 thou/uL (1.40-6.50); %Basophils 1.3 % (0.0-1.0); %Eosinophils 6.7 % (0.0-10.0); %Lymphocytes 13.7 % (21.0-51.0); %Monocytes 7.2 % (0.0-10.0); %Neutrophils 71.1 % (42.0-75.0); Mean Corpuscular HGB CONC 32.9 g/dL (32.0-36.0); Mean Corpuscular Hemoglobin 29.5 pg (27.0-31.0); Mean Corpuscular Volume 89.5 fL (78.0-98.0); Platelet Count 202 thou/uL (130-400); RBC Distribution Width 12.7 % (11.5-14.5); Red Blood Cell (RBC) Count 4.41 mill/uL (4.70-6.10); White Blood Cell (WBC) Count 9.4 thou/uL (4.8-10.8)
[2020-04-20 07:47] LABS: Anion Gap 18 mmol/L (10-20); BUN (Urea Nitrogen) 25 mg/dL (8.4-25.7); CRP (Inflammatory) 0.97 mg/dL (= or < 0.5); Calc. Creatinine Clearance 81 mL/min (70-130); Calcium 9.5 mg/dL (7.8-10.44); Carbon Dioxide 23 mmol/L (22-29); Chloride 103 mmol/L (98-107); Estimated GFR-MDRD 42; Glucose 124 mg/dL (70-105); Potassium 4.7 mmol/L (3.5-5.1); Sodium 139 mmol/L (136-145)
[2020-04-20] MEDS: Saccharomyces boulardii 250 MG CAP PO SCH (08:31)
[2020-04-20] MEDS: FLUoxetine HCl 20 MG CAP PO SCH (08:31)
[2020-04-20] MEDS: Divalproex Sodium 250 MG (DR) TAB PO SCH ×2 (08:32→21:28)
[2020-04-20] MEDS: Finasteride 5 MG TAB PO SCH (08:32)
[2020-04-20] MEDS: Benztropine 1 MG TAB PO SCH (08:32)
[2020-04-20] MEDS: Aspirin 81 mg Enteric Coated Tablet PO SCH (08:32)
[2020-04-20] MEDS: Senokot S 8.6-50 MG TAB PO SCH ×2 (08:33→21:28)
[2020-04-20] MEDS: Potassium Chloride 20 MEQ TAB PO SCH (08:33)
[2020-04-20] MEDS: Lisinopril 5 MG TAB PO SCH (08:33)
[2020-04-20] MEDS: Multivit, Therapeutic 1 TAB PO SCH (08:33)
[2020-04-20] MEDS: risperiDONE 1 MG TAB PO SCH ×2 (08:36→21:28)
[2020-04-20] MEDS: Mometasone/Formoterol 200/5 60 PUFF INH SCH ×2 (08:44→21:29)
[2020-04-20] MEDS: Cholecalciferol 1,000 UNITS (25 MCG) TAB PO SCH (09:26)
[2020-04-20] MEDS: Cefepime 1 GM in Sodium Chloride 0.9% 100 ML IVPB SCH ×2 (11:20→23:31)
[2020-04-20] MEDS: traZODone HCl 50 MG TAB PO SCH (21:28)
[2020-04-20] MEDS: Amlodipine 5 MG TAB PO SCH (21:28)
[2020-04-20] MEDS: Donepezil HCl 10 MG TAB PO SCH (21:29)
[2020-04-20] MEDS: Atorvastatin Calcium 10 MG TAB PO SCH (21:31)
[2020-04-21] MEDS: Levothyroxine Sodium 25 MCG TAB PO SCH (06:16)
[2020-04-21] MEDS: Benztropine 1 MG TAB PO SCH (07:59)
[2020-04-21] MEDS: Saccharomyces boulardii 250 MG CAP PO SCH (07:59)
[2020-04-21] MEDS: risperiDONE 1 MG TAB PO SCH ×2 (07:59→20:57)
[2020-04-21] MEDS: Cholecalciferol 1,000 UNITS (25 MCG) TAB PO SCH (07:59)
[2020-04-21] MEDS: Multivit, Therapeutic 1 TAB PO SCH (08:00)
[2020-04-21] MEDS: FLUoxetine HCl 20 MG CAP PO SCH (08:00)
[2020-04-21] MEDS: Senokot S 8.6-50 MG TAB PO SCH ×2 (08:00→20:56)
[2020-04-21] MEDS: Divalproex Sodium 250 MG (DR) TAB PO SCH ×2 (08:00→20:55)
[2020-04-21] MEDS: Aspirin 81 mg Enteric Coated Tablet PO SCH (08:00)
[2020-04-21] MEDS: Finasteride 5 MG TAB PO SCH (08:00)
[2020-04-21] MEDS: Potassium Chloride 20 MEQ TAB PO SCH (08:00)
[2020-04-21] MEDS: Lisinopril 5 MG TAB PO SCH (08:01)
[2020-04-21] MEDS: Mometasone/Formoterol 200/5 60 PUFF INH SCH ×2 (08:02→20:57)
[2020-04-21] MEDS: Cefepime 1 GM in Sodium Chloride 0.9% 100 ML IVPB SCH ×2 (10:37→22:30)
[2020-04-21] MEDS: HYDROcodone/Acetaminophen 5/325 mg Tablet PO PRN ×2 (14:27→22:29)
[2020-04-21] MEDS: traZODone HCl 50 MG TAB PO SCH (20:55)
[2020-04-21] MEDS: Atorvastatin Calcium 10 MG TAB PO SCH (20:55)
[2020-04-21] MEDS: Donepezil HCl 10 MG TAB PO SCH (20:56)
[2020-04-21] MEDS: Amlodipine 5 MG TAB PO SCH (20:57)
[2020-04-22] MEDS: Levothyroxine Sodium 25 MCG TAB PO SCH (05:08)
[2020-04-22] MEDS: Senokot S 8.6-50 MG TAB PO SCH ×2 (07:57→20:30)
[2020-04-22] MEDS: HYDROcodone/Acetaminophen 5/325 mg Tablet PO PRN ×2 (07:57→16:03)
[2020-04-22] MEDS: Multivit, Therapeutic 1 TAB PO SCH (07:59)
[2020-04-22] MEDS: Aspirin 81 mg Enteric Coated Tablet PO SCH (07:59)
[2020-04-22] MEDS: Lisinopril 5 MG TAB PO SCH (07:59)
[2020-04-22] MEDS: Divalproex Sodium 250 MG (DR) TAB PO SCH ×2 (08:00→20:31)
[2020-04-22] MEDS: FLUoxetine HCl 20 MG CAP PO SCH (08:00)
[2020-04-22] MEDS: Saccharomyces boulardii 250 MG CAP PO SCH (08:01)
[2020-04-22] MEDS: Benztropine 1 MG TAB PO SCH (08:01)
[2020-04-22] MEDS: Finasteride 5 MG TAB PO SCH (08:01)
[2020-04-22] MEDS: Cholecalciferol 1,000 UNITS (25 MCG) TAB PO SCH (08:01)
[2020-04-22] MEDS: risperiDONE 1 MG TAB PO SCH ×2 (08:02→20:30)
[2020-04-22] MEDS: Potassium Chloride 20 MEQ TAB PO SCH (08:02)
[2020-04-22] MEDS: Mometasone/Formoterol 200/5 60 PUFF INH SCH ×2 (08:42→20:32)
[2020-04-22] MEDS: Cefepime 1 GM in Sodium Chloride 0.9% 100 ML IVPB SCH ×2 (11:41→22:26)
[2020-04-22] MEDS: traZODone HCl 50 MG TAB PO SCH (20:30)
[2020-04-22] MEDS: Atorvastatin Calcium 10 MG TAB PO SCH (20:30)
[2020-04-22] MEDS: Amlodipine 5 MG TAB PO SCH (20:31)
[2020-04-22] MEDS: Donepezil HCl 10 MG TAB PO SCH (20:31)
[2020-04-23] MEDS: Levothyroxine Sodium 25 MCG TAB PO SCH (05:38)
[2020-04-23] MEDS: HYDROcodone/Acetaminophen 5/325 mg Tablet PO PRN ×2 (05:38→19:12)
[2020-04-23] MEDS: Senokot S 8.6-50 MG TAB PO SCH ×2 (08:22→20:53)
[2020-04-23] MEDS: Potassium Chloride 20 MEQ TAB PO SCH (08:22)
[2020-04-23] MEDS: Multivit, Therapeutic 1 TAB PO SCH (08:22)
[2020-04-23] MEDS: risperiDONE 1 MG TAB PO SCH ×2 (08:22→20:53)
[2020-04-23] MEDS: Lisinopril 5 MG TAB PO SCH (08:23)
[2020-04-23] MEDS: Divalproex Sodium 250 MG (DR) TAB PO SCH ×2 (08:23→20:52)
[2020-04-23] MEDS: Benztropine 1 MG TAB PO SCH (08:23)
[2020-04-23] MEDS: Aspirin 81 mg Enteric Coated Tablet PO SCH (08:23)
[2020-04-23] MEDS: Cholecalciferol 1,000 UNITS (25 MCG) TAB PO SCH (08:23)
[2020-04-23] MEDS: FLUoxetine HCl 20 MG CAP PO SCH (08:23)
[2020-04-23] MEDS: Saccharomyces boulardii 250 MG CAP PO SCH (08:23)
[2020-04-23] MEDS: Finasteride 5 MG TAB PO SCH (08:23)
[2020-04-23] MEDS: Mometasone/Formoterol 200/5 60 PUFF INH SCH ×2 (08:24→20:51)
[2020-04-23] MEDS: Cefepime 1 GM in Sodium Chloride 0.9% 100 ML IVPB SCH ×2 (11:19→22:56)
[2020-04-23] MEDS: Atorvastatin Calcium 10 MG TAB PO SCH (20:52)
[2020-04-23] MEDS: Amlodipine 5 MG TAB PO SCH (20:52)
[2020-04-23] MEDS: Donepezil HCl 10 MG TAB PO SCH (20:52)
[2020-04-23] MEDS: traZODone HCl 50 MG TAB PO SCH (20:52)
[2020-04-24] MEDS: HYDROcodone/Acetaminophen 5/325 mg Tablet PO PRN ×2 (05:06→16:35)
[2020-04-24] MEDS: Levothyroxine Sodium 25 MCG TAB PO SCH (05:07)
[2020-04-24] MEDS: Mometasone/Formoterol 200/5 60 PUFF INH SCH ×2 (08:10→20:55)
[2020-04-24] MEDS: Cholecalciferol 1,000 UNITS (25 MCG) TAB PO SCH (08:12)
[2020-04-24] MEDS: Saccharomyces boulardii 250 MG CAP PO SCH (08:12)
[2020-04-24] MEDS: Finasteride 5 MG TAB PO SCH (08:12)
[2020-04-24] MEDS: FLUoxetine HCl 20 MG CAP PO SCH (08:12)
[2020-04-24] MEDS: Aspirin 81 mg Enteric Coated Tablet PO SCH (08:13)
[2020-04-24] MEDS: Potassium Chloride 20 MEQ TAB PO SCH (08:13)
[2020-04-24] MEDS: Lisinopril 5 MG TAB PO SCH (08:13)
[2020-04-24] MEDS: Divalproex Sodium 250 MG (DR) TAB PO SCH ×2 (08:14→20:55)
[2020-04-24] MEDS: Benztropine 1 MG TAB PO SCH (08:14)
[2020-04-24] MEDS: Senokot S 8.6-50 MG TAB PO SCH ×2 (08:15→20:57)
[2020-04-24] MEDS: risperiDONE 1 MG TAB PO SCH ×2 (08:15→20:56)
[2020-04-24] MEDS: Multivit, Therapeutic 1 TAB PO SCH (08:15)
[2020-04-24] MEDS ORDERED: Fentanyl 100 MCG/2 ML VIAL ONE (08:34)
[2020-04-24] MEDS ORDERED: Sodium Bicarbonate 2.5 MEQ/5 ML VIAL ONE (08:35)
[2020-04-24] MEDS ORDERED: Midazolam HCl 2 mg/2 ml Vial ONE (08:35)
[2020-04-24] MEDS: Cefepime 1 GM in Sodium Chloride 0.9% 100 ML IVPB SCH ×2 (11:10→23:06)
[2020-04-24] MEDS: Amlodipine 5 MG TAB PO SCH (20:50)
[2020-04-24] MEDS: Atorvastatin Calcium 10 MG TAB PO SCH (20:51)
[2020-04-24] MEDS: Donepezil HCl 10 MG TAB PO SCH (20:55)
[2020-04-24] MEDS: traZODone HCl 50 MG TAB PO SCH (20:57)
[2020-04-25] MEDS: Levothyroxine Sodium 25 MCG TAB PO SCH (05:23)
[2020-04-25] MEDS: HYDROcodone/Acetaminophen 5/325 mg Tablet PO PRN ×2 (07:40→20:05)
[2020-04-25] MEDS: Senokot S 8.6-50 MG TAB PO SCH ×2 (08:26→20:08)
[2020-04-25] MEDS: Saccharomyces boulardii 250 MG CAP PO SCH (08:26)
[2020-04-25] MEDS: risperiDONE 1 MG TAB PO SCH ×2 (08:26→20:08)
[2020-04-25] MEDS: Mometasone/Formoterol 200/5 60 PUFF INH SCH ×2 (08:26→20:06)
[2020-04-25] MEDS: Potassium Chloride 20 MEQ TAB PO SCH (08:27)
[2020-04-25] MEDS: FLUoxetine HCl 20 MG CAP PO SCH (08:27)
[2020-04-25] MEDS: Lisinopril 5 MG TAB PO SCH (08:27)
[2020-04-25] MEDS: Benztropine 1 MG TAB PO SCH (08:27)
[2020-04-25] MEDS: Cholecalciferol 1,000 UNITS (25 MCG) TAB PO SCH (08:28)
[2020-04-25] MEDS: Finasteride 5 MG TAB PO SCH (08:28)
[2020-04-25] MEDS: Divalproex Sodium 250 MG (DR) TAB PO SCH ×2 (08:28→20:08)
[2020-04-25] MEDS: Aspirin 81 mg Enteric Coated Tablet PO SCH (08:28)
[2020-04-25] MEDS: Multivit, Therapeutic 1 TAB PO SCH (08:28)
[2020-04-25] MEDS: Cefepime 1 GM in Sodium Chloride 0.9% 100 ML IVPB SCH ×2 (11:36→22:28)
[2020-04-25] MEDS: Atorvastatin Calcium 10 MG TAB PO SCH (20:07)
[2020-04-25] MEDS: traZODone HCl 50 MG TAB PO SCH (20:07)
[2020-04-25] MEDS: Amlodipine 5 MG TAB PO SCH (20:07)
[2020-04-25] MEDS: Donepezil HCl 10 MG TAB PO SCH (20:08)
[2020-04-26] MEDS: Levothyroxine Sodium 25 MCG TAB PO SCH (05:28)
[2020-04-26] MEDS: HYDROcodone/Acetaminophen 5/325 mg Tablet PO PRN ×2 (07:57→16:26)
[2020-04-26] MEDS: Multivit, Therapeutic 1 TAB PO SCH (07:59)
[2020-04-26] MEDS: Lisinopril 5 MG TAB PO SCH (07:59)
[2020-04-26] MEDS: Divalproex Sodium 250 MG (DR) TAB PO SCH ×2 (07:59→20:36)
[2020-04-26] MEDS: FLUoxetine HCl 20 MG CAP PO SCH (07:59)
[2020-04-26] MEDS: Senokot S 8.6-50 MG TAB PO SCH ×2 (07:59→20:37)
[2020-04-26] MEDS: Saccharomyces boulardii 250 MG CAP PO SCH (07:59)
[2020-04-26] MEDS: Aspirin 81 mg Enteric Coated Tablet PO SCH (07:59)
[2020-04-26] MEDS: Potassium Chloride 20 MEQ TAB PO SCH (08:00)
[2020-04-26] MEDS: Benztropine 1 MG TAB PO SCH (08:00)
[2020-04-26] MEDS: Finasteride 5 MG TAB PO SCH (08:00)
[2020-04-26] MEDS: risperiDONE 1 MG TAB PO SCH ×2 (08:00→20:36)
[2020-04-26] MEDS: Cholecalciferol 1,000 UNITS (25 MCG) TAB PO SCH (08:01)
[2020-04-26] MEDS: Mometasone/Formoterol 200/5 60 PUFF INH SCH ×2 (08:01→20:35)
[2020-04-26] MEDS: Cefepime 1 GM in Sodium Chloride 0.9% 100 ML IVPB SCH ×2 (10:52→22:50)
[2020-04-26] MEDS: traZODone HCl 50 MG TAB PO SCH (20:36)
[2020-04-26] MEDS: Atorvastatin Calcium 10 MG TAB PO SCH (20:37)
[2020-04-26] MEDS: Amlodipine 5 MG TAB PO SCH (20:37)
[2020-04-26] MEDS: Donepezil HCl 10 MG TAB PO SCH (20:37)
[2020-04-27] MEDS: Levothyroxine Sodium 25 MCG TAB PO SCH (05:46)
[2020-04-27 06:31] LABS: #Basophils 0.1 thou/uL (0.0-0.2); #Eosinphils 0.5 thou/uL (0.0-0.7); #Lymphocytes 1.6 thou/uL (1.20-3.40); #Monocytes 0.8 thou/uL (0.11-0.59); #Neutrophils 4.7 thou/uL (1.40-6.50); %Basophils 1.3 % (0.0-1.0); %Eosinophils 6.8 % (0.0-10.0); %Lymphocytes 20.6 % (21.0-51.0); %Monocytes 9.8 % (0.0-10.0); %Neutrophils 61.4 % (42.0-75.0); Hemoglobin 12.9 g/dL (14.0-18.0); Mean Corpuscular HGB CONC 33.1 g/dL (32.0-36.0); Mean Corpuscular Hemoglobin 30.4 pg (27.0-31.0); Mean Corpuscular Volume 91.7 fL (78.0-98.0); Mean Platelet Volume 8.8 fL (7.4-10.4); Platelet Count 146 thou/uL (130-400); Red Blood Cell (RBC) Count 4.26 mill/uL (4.70-6.10); White Blood Cell (WBC) Count 7.7 thou/uL (4.8-10.8)
[2020-04-27 07:16] LABS: ALT (SGPT) 18 U/L (8-55); AST (SGOT) 13 U/L (5-34); Albumin 3.7 g/dL (3.5-5.0); Alkaline Phosphatase 74 U/L (40-110); Anion Gap 18 mmol/L (10-20); BUN (Urea Nitrogen) 22 mg/dL (8.4-25.7); Bilirubin, Total 0.2 mg/dL (0.2-1.2); Calc. Creatinine Clearance 86 mL/min (70-130); Calcium 9.3 mg/dL (7.8-10.44); Carbon Dioxide 24 mmol/L (22-29); Chloride 102 mmol/L (98-107); Estimated GFR-MDRD 44; Globulin 2.9 g/dL (2.4-3.5); Glucose 140 mg/dL (70-105); Potassium 4.5 mmol/L (3.5-5.1); Protein, Total 6.6 g/dL (6.0-8.3); Sodium 139 mmol/L (136-145)
[2020-04-27] MEDS: Aspirin 81 mg Enteric Coated Tablet PO SCH (08:35)
[2020-04-27] MEDS: Divalproex Sodium 250 MG (DR) TAB PO SCH ×2 (08:36→20:08)
[2020-04-27] MEDS: Finasteride 5 MG TAB PO SCH (08:36)
[2020-04-27] MEDS: Cholecalciferol 1,000 UNITS (25 MCG) TAB PO SCH (08:36)
[2020-04-27] MEDS: Saccharomyces boulardii 250 MG CAP PO SCH (08:36)
[2020-04-27] MEDS: risperiDONE 1 MG TAB PO SCH ×2 (08:36→20:07)
[2020-04-27] MEDS: Benztropine 1 MG TAB PO SCH (08:36)
[2020-04-27] MEDS: FLUoxetine HCl 20 MG CAP PO SCH (08:37)
[2020-04-27] MEDS: Lisinopril 5 MG TAB PO SCH (08:37)
[2020-04-27] MEDS: Senokot S 8.6-50 MG TAB PO SCH ×2 (08:37→20:08)
[2020-04-27] MEDS: Potassium Chloride 20 MEQ TAB PO SCH (08:37)
[2020-04-27] MEDS: Multivit, Therapeutic 1 TAB PO SCH (08:38)
[2020-04-27] MEDS: Mometasone/Formoterol 200/5 60 PUFF INH SCH ×2 (08:42→20:08)
[2020-04-27] MEDS: HYDROcodone/Acetaminophen 5/325 mg Tablet PO PRN (08:52)
[2020-04-27] MEDS: Cefepime 1 GM in Sodium Chloride 0.9% 100 ML IVPB SCH (11:14)
[2020-04-27] MEDS: Atorvastatin Calcium 10 MG TAB PO SCH (20:07)
[2020-04-27] MEDS: Amlodipine 5 MG TAB PO SCH (20:07)
[2020-04-27] MEDS: traZODone HCl 50 MG TAB PO SCH (20:08)
[2020-04-27] MEDS: Donepezil HCl 10 MG TAB PO SCH (20:08)
[2020-04-27] MEDS ORDERED: Cefepime 1 GM in Sodium Chloride 0.9% 100 ML IVPB SCH (23:30)
[2020-04-28] MEDS: Levothyroxine Sodium 25 MCG TAB PO SCH (05:14)
[2020-04-28] MEDS: HYDROcodone/Acetaminophen 5/325 mg Tablet PO PRN ×2 (05:18→12:24)
[2020-04-28] MEDS: Aspirin 81 mg Enteric Coated Tablet PO SCH (08:22)
[2020-04-28] MEDS: Benztropine 1 MG TAB PO SCH (08:22)
[2020-04-28] MEDS: Lisinopril 5 MG TAB PO SCH (08:23)
[2020-04-28] MEDS: FLUoxetine HCl 20 MG CAP PO SCH (08:23)
[2020-04-28] MEDS: Multivit, Therapeutic 1 TAB PO SCH (08:23)
[2020-04-28] MEDS: risperiDONE 1 MG TAB PO SCH ×2 (08:23→19:32)
[2020-04-28] MEDS: Cholecalciferol 1,000 UNITS (25 MCG) TAB PO SCH (08:23)
[2020-04-28] MEDS: Divalproex Sodium 250 MG (DR) TAB PO SCH ×2 (08:23→19:33)
[2020-04-28] MEDS: Senokot S 8.6-50 MG TAB PO SCH ×2 (08:23→19:33)
[2020-04-28] MEDS: Finasteride 5 MG TAB PO SCH (08:24)
[2020-04-28] MEDS: Saccharomyces boulardii 250 MG CAP PO SCH (08:24)
[2020-04-28] MEDS: Mometasone/Formoterol 200/5 60 PUFF INH SCH ×2 (08:24→19:34)
[2020-04-28] MEDS: Potassium Chloride 20 MEQ TAB PO SCH (08:25)
[2020-04-28] MEDS: Cefepime 1 GM in Sodium Chloride 0.9% 100 ML IVPB SCH ×2 (13:10→23:32)
[2020-04-28] MEDS ORDERED: Cefepime 1 GM in Sodium Chloride 0.9% 100 ML IVPB SCH (13:15)
[2020-04-28] MEDS: traZODone HCl 50 MG TAB PO SCH (19:32)
[2020-04-28] MEDS: Atorvastatin Calcium 10 MG TAB PO SCH (19:33)
[2020-04-28] MEDS: Donepezil HCl 10 MG TAB PO SCH (19:33)
[2020-04-28] MEDS: Amlodipine 5 MG TAB PO SCH (19:35)
[2020-04-29] MEDS: HYDROcodone/Acetaminophen 5/325 mg Tablet PO PRN ×2 (00:11→08:33)
[2020-04-29] MEDS: Levothyroxine Sodium 25 MCG TAB PO SCH (04:52)
[2020-04-29] MEDS: Divalproex Sodium 250 MG (DR) TAB PO SCH ×2 (08:22→20:55)
[2020-04-29] MEDS: risperiDONE 1 MG TAB PO SCH ×2 (08:22→20:54)
[2020-04-29] MEDS: Cholecalciferol 1,000 UNITS (25 MCG) TAB PO SCH (08:22)
[2020-04-29] MEDS: Mometasone/Formoterol 200/5 60 PUFF INH SCH ×2 (08:22→20:57)
[2020-04-29] MEDS: Multivit, Therapeutic 1 TAB PO SCH (08:23)
[2020-04-29] MEDS: FLUoxetine HCl 20 MG CAP PO SCH (08:23)
[2020-04-29] MEDS: Lisinopril 5 MG TAB PO SCH (08:23)
[2020-04-29] MEDS: Benztropine 1 MG TAB PO SCH (08:23)
[2020-04-29] MEDS: Finasteride 5 MG TAB PO SCH (08:23)
[2020-04-29] MEDS: Aspirin 81 mg Enteric Coated Tablet PO SCH (08:23)
[2020-04-29] MEDS: Potassium Chloride 20 MEQ TAB PO SCH (08:24)
[2020-04-29] MEDS: Saccharomyces boulardii 250 MG CAP PO SCH (08:24)
[2020-04-29] MEDS: Senokot S 8.6-50 MG TAB PO SCH ×2 (08:24→20:55)
[2020-04-29] MEDS: Cefepime 1 GM in Sodium Chloride 0.9% 100 ML IVPB SCH ×2 (11:00→22:47)
[2020-04-29] MEDS: Amlodipine 5 MG TAB PO SCH (20:54)
[2020-04-29] MEDS: Atorvastatin Calcium 10 MG TAB PO SCH (20:54)
[2020-04-29] MEDS: traZODone HCl 50 MG TAB PO SCH (20:54)
[2020-04-29] MEDS: Donepezil HCl 10 MG TAB PO SCH (20:55)
[2020-04-30] MEDS: Levothyroxine Sodium 25 MCG TAB PO SCH (05:10)
[2020-04-30] MEDS: Mometasone/Formoterol 200/5 60 PUFF INH SCH ×2 (08:22→20:30)
[2020-04-30] MEDS: Potassium Chloride 20 MEQ TAB PO SCH (08:23)
[2020-04-30] MEDS: FLUoxetine HCl 20 MG CAP PO SCH (08:23)
[2020-04-30] MEDS: Senokot S 8.6-50 MG TAB PO SCH ×2 (08:24→20:31)
[2020-04-30] MEDS: Aspirin 81 mg Enteric Coated Tablet PO SCH (08:24)
[2020-04-30] MEDS: Divalproex Sodium 250 MG (DR) TAB PO SCH ×2 (08:24→20:31)
[2020-04-30] MEDS: Multivit, Therapeutic 1 TAB PO SCH (08:24)
[2020-04-30] MEDS: Finasteride 5 MG TAB PO SCH (08:24)
[2020-04-30] MEDS: Lisinopril 5 MG TAB PO SCH (08:24)
[2020-04-30] MEDS: risperiDONE 1 MG TAB PO SCH ×2 (08:24→20:31)
[2020-04-30] MEDS: Saccharomyces boulardii 250 MG CAP PO SCH (08:24)
[2020-04-30] MEDS: Cholecalciferol 1,000 UNITS (25 MCG) TAB PO SCH (08:24)
[2020-04-30] MEDS: Benztropine 1 MG TAB PO SCH (08:25)
[2020-04-30] MEDS: Cefepime 1 GM in Sodium Chloride 0.9% 100 ML IVPB SCH ×2 (10:50→22:25)
[2020-04-30] MEDS: HYDROcodone/Acetaminophen 5/325 mg Tablet PO PRN (13:58)
[2020-04-30] MEDS: Donepezil HCl 10 MG TAB PO SCH (20:30)
[2020-04-30] MEDS: Atorvastatin Calcium 10 MG TAB PO SCH (20:31)
[2020-04-30] MEDS: Amlodipine 5 MG TAB PO SCH (20:31)
[2020-04-30] MEDS: traZODone HCl 50 MG TAB PO SCH (20:31)
[2020-05-01] MEDS: Levothyroxine Sodium 25 MCG TAB PO SCH (05:35)
[2020-05-01] MEDS: Mometasone/Formoterol 200/5 60 PUFF INH SCH ×2 (08:22→19:21)
[2020-05-01] MEDS: Aspirin 81 mg Enteric Coated Tablet PO SCH (08:25)
[2020-05-01] MEDS: Potassium Chloride 20 MEQ TAB PO SCH (08:26)
[2020-05-01] MEDS: Lisinopril 5 MG TAB PO SCH (08:26)
[2020-05-01] MEDS: risperiDONE 1 MG TAB PO SCH ×2 (08:26→19:22)
[2020-05-01] MEDS: Benztropine 1 MG TAB PO SCH (08:26)
[2020-05-01] MEDS: Saccharomyces boulardii 250 MG CAP PO SCH (08:26)
[2020-05-01] MEDS: Divalproex Sodium 250 MG (DR) TAB PO SCH ×2 (08:27→19:23)
[2020-05-01] MEDS: Multivit, Therapeutic 1 TAB PO SCH (08:27)
[2020-05-01] MEDS: Cholecalciferol 1,000 UNITS (25 MCG) TAB PO SCH (08:27)
[2020-05-01] MEDS: Senokot S 8.6-50 MG TAB PO SCH ×2 (08:27→19:24)
[2020-05-01] MEDS: Finasteride 5 MG TAB PO SCH (08:27)
[2020-05-01] MEDS: FLUoxetine HCl 20 MG CAP PO SCH (08:27)
[2020-05-01 09:11] VITALS: BMI 39.7
[2020-05-01] MEDS: Cefepime 1 GM in Sodium Chloride 0.9% 100 ML IVPB SCH ×3 (11:05→23:38)
[2020-05-01] MEDS: HYDROcodone/Acetaminophen 5/325 mg Tablet PO PRN (15:29)
[2020-05-01] MEDS: Donepezil HCl 10 MG TAB PO SCH (19:22)
[2020-05-01] MEDS: Amlodipine 5 MG TAB PO SCH (19:23)
[2020-05-01] MEDS: Atorvastatin Calcium 10 MG TAB PO SCH (19:23)
[2020-05-01] MEDS: traZODone HCl 50 MG TAB PO SCH (19:24)
[2020-05-02] MEDS: Levothyroxine Sodium 25 MCG TAB PO SCH (05:11)
[2020-05-02] MEDS: Acetaminophen 325 MG TAB PO PRN (05:11)
[2020-05-02] MEDS: Mometasone/Formoterol 200/5 60 PUFF INH SCH ×2 (08:50→19:30)
[2020-05-02] MEDS: HYDROcodone/Acetaminophen 5/325 mg Tablet PO PRN ×2 (08:54→19:27)
[2020-05-02] MEDS: Benztropine 1 MG TAB PO SCH (08:55)
[2020-05-02] MEDS: FLUoxetine HCl 20 MG CAP PO SCH (08:55)
[2020-05-02] MEDS: Lisinopril 5 MG TAB PO SCH (08:55)
[2020-05-02] MEDS: Aspirin 81 mg Enteric Coated Tablet PO SCH (08:55)
[2020-05-02] MEDS: Divalproex Sodium 250 MG (DR) TAB PO SCH ×2 (08:56→19:29)
[2020-05-02] MEDS: Finasteride 5 MG TAB PO SCH (08:56)
[2020-05-02] MEDS: risperiDONE 1 MG TAB PO SCH ×2 (08:56→19:28)
[2020-05-02] MEDS: Senokot S 8.6-50 MG TAB PO SCH ×2 (08:57→19:31)
[2020-05-02] MEDS: Potassium Chloride 20 MEQ TAB PO SCH (08:57)
[2020-05-02] MEDS: Multivit, Therapeutic 1 TAB PO SCH (08:57)
[2020-05-02] MEDS: Cholecalciferol 1,000 UNITS (25 MCG) TAB PO SCH (08:57)
[2020-05-02] MEDS: Saccharomyces boulardii 250 MG CAP PO SCH (08:59)
[2020-05-02] MEDS: Cefepime 1 GM in Sodium Chloride 0.9% 100 ML IVPB SCH ×2 (11:03→23:27)
[2020-05-02] MEDS: traZODone HCl 50 MG TAB PO SCH (19:28)
[2020-05-02] MEDS: Donepezil HCl 10 MG TAB PO SCH (19:28)
[2020-05-02] MEDS: Amlodipine 5 MG TAB PO SCH (19:29)
[2020-05-02] MEDS: Atorvastatin Calcium 10 MG TAB PO SCH (19:29)
[2020-05-03] MEDS: Levothyroxine Sodium 25 MCG TAB PO SCH (05:23)
[2020-05-03] MEDS: Mometasone/Formoterol 200/5 60 PUFF INH SCH ×2 (08:38→20:25)
[2020-05-03] MEDS: Potassium Chloride 20 MEQ TAB PO SCH (08:39)
[2020-05-03] MEDS: risperiDONE 1 MG TAB PO SCH ×2 (08:40→20:30)
[2020-05-03] MEDS: Aspirin 81 mg Enteric Coated Tablet PO SCH (08:40)
[2020-05-03] MEDS: Finasteride 5 MG TAB PO SCH (08:40)
[2020-05-03] MEDS: Benztropine 1 MG TAB PO SCH (08:41)
[2020-05-03] MEDS: Cholecalciferol 1,000 UNITS (25 MCG) TAB PO SCH (08:41)
[2020-05-03] MEDS: Divalproex Sodium 250 MG (DR) TAB PO SCH ×2 (08:41→20:29)
[2020-05-03] MEDS: Multivit, Therapeutic 1 TAB PO SCH (08:41)
[2020-05-03] MEDS: Saccharomyces boulardii 250 MG CAP PO SCH (08:41)
[2020-05-03] MEDS: FLUoxetine HCl 20 MG CAP PO SCH (08:43)
[2020-05-03] MEDS: Lisinopril 5 MG TAB PO SCH (08:43)
[2020-05-03] MEDS: Senokot S 8.6-50 MG TAB PO SCH ×2 (08:44→21:49)
[2020-05-03] MEDS: HYDROcodone/Acetaminophen 5/325 mg Tablet PO PRN (09:41)
[2020-05-03] MEDS: Acetaminophen 325 MG TAB PO PRN (09:45)
[2020-05-03] MEDS: Cefepime 1 GM in Sodium Chloride 0.9% 100 ML IVPB SCH ×2 (11:20→23:14)
[2020-05-03] MEDS: Amlodipine 5 MG TAB PO SCH (20:28)
[2020-05-03] MEDS: Atorvastatin Calcium 10 MG TAB PO SCH (20:29)
[2020-05-03] MEDS: traZODone HCl 50 MG TAB PO SCH (20:29)
[2020-05-03] MEDS: Donepezil HCl 10 MG TAB PO SCH (20:29)
[2020-05-04 05:25] LABS: #Basophils 0.1 thou/uL (0.0-0.2); #Eosinphils 0.5 thou/uL (0.0-0.7); #Lymphocytes 1.6 thou/uL (1.20-3.40); #Monocytes 0.8 thou/uL (0.11-0.59); #Neutrophils 5.4 thou/uL (1.40-6.50); %Basophils 0.8 % (0.0-1.0); %Eosinophils 6.4 % (0.0-10.0); %Lymphocytes 19.2 % (21.0-51.0); %Neutrophils 63.5 % (42.0-75.0); Hemoglobin 12.8 g/dL (14.0-18.0); Mean Corpuscular HGB CONC 34.3 g/dL (32.0-36.0); Mean Corpuscular Hemoglobin 31.4 pg (27.0-31.0); Mean Corpuscular Volume 91.5 fL (78.0-98.0); Mean Platelet Volume 8.6 fL (7.4-10.4); Platelet Count 133 thou/uL (130-400); Red Blood Cell (RBC) Count 4.08 mill/uL (4.70-6.10); White Blood Cell (WBC) Count 8.4 thou/uL (4.8-10.8)
[2020-05-04 05:42] LABS: Anion Gap 15 mmol/L (10-20); BUN (Urea Nitrogen) 21 mg/dL (8.4-25.7); Calc. Creatinine Clearance 89 mL/min (70-130); Calcium 9.2 mg/dL (7.8-10.44); Carbon Dioxide 24 mmol/L (22-29); Chloride 106 mmol/L (98-107); Estimated GFR-MDRD 44; Glucose 135 mg/dL (70-105); Potassium 4.7 mmol/L (3.5-5.1); Sodium 140 mmol/L (136-145)
[2020-05-04] MEDS: Levothyroxine Sodium 25 MCG TAB PO SCH (06:20)
[2020-05-04] MEDS: HYDROcodone/Acetaminophen 5/325 mg Tablet PO PRN ×2 (07:41→20:47)
[2020-05-04] MEDS: risperiDONE 1 MG TAB PO SCH ×2 (08:32→20:48)
[2020-05-04] MEDS: FLUoxetine HCl 20 MG CAP PO SCH (08:32)
[2020-05-04] MEDS: Saccharomyces boulardii 250 MG CAP PO SCH (08:32)
[2020-05-04] MEDS: Multivit, Therapeutic 1 TAB PO SCH (08:33)
[2020-05-04] MEDS: Senokot S 8.6-50 MG TAB PO SCH ×2 (08:33→20:48)
[2020-05-04] MEDS: Benztropine 1 MG TAB PO SCH (08:33)
[2020-05-04] MEDS: Potassium Chloride 20 MEQ TAB PO SCH (08:33)
[2020-05-04] MEDS: Divalproex Sodium 250 MG (DR) TAB PO SCH ×2 (08:33→20:48)
[2020-05-04] MEDS: Aspirin 81 mg Enteric Coated Tablet PO SCH (08:33)
[2020-05-04] MEDS: Cholecalciferol 1,000 UNITS (25 MCG) TAB PO SCH (08:33)
[2020-05-04] MEDS: Lisinopril 5 MG TAB PO SCH (08:33)
[2020-05-04] MEDS: Finasteride 5 MG TAB PO SCH (08:33)
[2020-05-04] MEDS: Mometasone/Formoterol 200/5 60 PUFF INH SCH ×2 (08:34→20:47)
[2020-05-04] MEDS: Cefepime 1 GM in Sodium Chloride 0.9% 100 ML IVPB SCH ×2 (11:51→23:30)
[2020-05-04] MEDS: traZODone HCl 50 MG TAB PO SCH (20:47)
[2020-05-04] MEDS: Amlodipine 5 MG TAB PO SCH (20:48)
[2020-05-04] MEDS: Atorvastatin Calcium 10 MG TAB PO SCH (20:48)
[2020-05-04] MEDS: Donepezil HCl 10 MG TAB PO SCH (20:49)
[2020-05-05] MEDS: Levothyroxine Sodium 25 MCG TAB PO SCH (05:17)
[2020-05-05] MEDS: Mometasone/Formoterol 200/5 60 PUFF INH SCH (08:31)
[2020-05-05] MEDS: risperiDONE 1 MG TAB PO SCH (08:32)
[2020-05-05] MEDS: Aspirin 81 mg Enteric Coated Tablet PO SCH (08:33)
[2020-05-05] MEDS: Multivit, Therapeutic 1 TAB PO SCH (08:33)
[2020-05-05] MEDS: FLUoxetine HCl 20 MG CAP PO SCH (08:33)
[2020-05-05] MEDS: Finasteride 5 MG TAB PO SCH (08:33)
[2020-05-05] MEDS: Divalproex Sodium 250 MG (DR) TAB PO SCH (08:33)
[2020-05-05] MEDS: Benztropine 1 MG TAB PO SCH (08:33)
[2020-05-05] MEDS: Saccharomyces boulardii 250 MG CAP PO SCH (08:34)
[2020-05-05] MEDS: Cholecalciferol 1,000 UNITS (25 MCG) TAB PO SCH (08:34)
[2020-05-05] MEDS: Lisinopril 5 MG TAB PO SCH (08:34)
[2020-05-05] MEDS: Senokot S 8.6-50 MG TAB PO SCH (08:34)
[2020-05-05] MEDS: Potassium Chloride 20 MEQ TAB PO SCH (08:35)
[2020-05-05 09:04] VITALS: BP 111/65; TEMP 97.5
[2020-05-05] MEDS: Cefepime 1 GM in Sodium Chloride 0.9% 100 ML IVPB SCH (10:04)
[2020-05-05] MEDS: HYDROcodone/Acetaminophen 5/325 mg Tablet PO PRN (10:04)
--- NOTE | 2020-05-10 09:27 | DIS ---
DATE OF ADMISSION: 04/12/2020 DATE OF DISCHARGE: 05/05/2020 REASON FOR ADMISSION: To complete IV antibiotic therapy for 4 weeks in [facility]. DISCHARGE DIAGNOSES: 1. Complicated urinary tract infection with Pseudomonas, requiring long-term IV antibiotic management for 4 weeks, completed. 2. Deconditioning secondary to general weakness. 3. Benign prostatic hyperplasia with obstructive symptoms. 4. Neurogenic bladder requiring suprapubic catheter. 5. Diastolic congestive heart failure, compensated. 6. Diabetes type 2, controlled. 7. Hypertension. 8. Suprapubic in place. 9. Schizoaffective disorder. 10. Bipolar disorder. 11. Anxiety and depression. 12. Chronic kidney disease, stage 3. 13. Hypothyroidism. 14. Dyslipidemia. 15. Chronic obstructive pulmonary disease. 16. Morbid obesity with BMI of 40 to 44. CONDITION ON DISCHARGE: Stable. DISPOSITION: Home. DISCHARGE INSTRUCTIONS: 1. Diet, low salt, low fat, 2000 ADA. 2. Activity: To use rolling walker at all times. Fall precautions. FOLLOWUP: 1. Follow up with Dr. Manzanares in 1 week. 2. Follow up with PCP in 1 to 2 weeks. 3. Follow up with Dr. Reyna as directed. 4. Follow up with Dr. Dailey in 1 to 2 weeks for Uro care. 5. Follow up with Dr. Mosley as previously scheduled. HOME MEDICATIONS: 1. Acetaminophen 325 mg p.o. q.4 hours p.r.n. 2. Albuterol sulfate HFA 2 puffs inhaled p.r.n. q.6 hours. 3. Amlodipine 5 mg p.o. q.h.s. 4. Aspirin 81 mg p.o. daily. 5. Atorvastatin 10 mg p.o. q.h.s. 6. Benztropine 1 mg p.o. daily. 7. Symbicort 160/4.5 mg two puffs inhaled b.i.d. 8. Vitamin D 1000 mg p.o. daily. 9. Depakote 250 mg p.o. daily. 10. Donepezil 10 mg p.o. q.h.s. 11. Finasteride 5 mg p.o. daily. 12. Fluoxetine 40 mg p.o. daily. 13. Furosemide 40 mg p.o. q.a.m. 14. Glipizide 2.5 mg p.o. q.a.m. 15. Levothyroxine 25 mcg p.o. daily. 16. Lisinopril 2.5 mg p.o. daily. 17. Dulera 200 mcg/5 mcg inhaler 2 puffs inhaled b.i.d. 18. Multivitamins one tab daily. 19. Pantoprazole 40 mg p.o. daily. 20. Potassium chloride 20 mix packet p.o. daily. 21. Pravastatin 40 mg p.o. q.h.s. 22. Risperidone 3 mg p.o. b.i.d.. 23. Florastor 500 mg p.o. daily. 24. Docusate tablet p.o. daily. 25. Trazodone 100 mg p.o. q.h.s. HISTORY OF THE PRESENT ILLNESS AND HOSPITAL COURSE: Mr. Shook is a 60-year-old with history of BPH associated with urinary obstruction symptoms, neurogenic bladder requiring suprapubic catheter, history of recurrent UTI, diabetes, hypertension, CHF. The patient was recently admitted to [facility] for another occurrence of complicated Urinary tract infection.This time it is associated with Pseudomonas requiring long-term IV antibiotic treatment. He was seen and treated by Dr. Manzanares in the hospital and was recommended to complete a 4-week course of Cefazolin. He was then transferred to [facility] to complete IV antibiotic as directed. The patient did well in [place] and completed his IV antibiotic on 05/05/2020 without complications. During this hospitalization, patient had an episode of mood swings and severe depression. He admits that his psych medications were recently titrated down by his Psych secondary to his request. His Risperidone was placed back at 3 mg p.o. b.i.d. and Depakote was re- initiated at 250 mg p.o. b.i.d. The patient did well with the current medications and was supposed to see back Dr. Reyna for psych care on 05/05/2020 for the Televisit, but the appointment was canceled. He is highly recommended to follow up with Psych for which he agreed on. He will set up the appointment as outpatient himself. Vital signs prior to discharge; blood pressure 119/75, temperature 97.5, pulse 55,respirations 18,O2 saturation 95% at room air. Weight 269 pounds and 7 ounces. Height 5 feet 9 inches. Time spent on this discharge in examining the patient and coordinating care is 32 minutes. Job ID: [id number] MTDD
== END 2020-05-05 16:11 | disposition home health service (06) | DRG 699 ==
LOC: MADMS 16:25
PROVIDERS: ADMIT Family Medicine; ATTEND Family Medicine
DX: T83.511A Infection and inflammatory reaction due to indwelling urethral catheter, initial encounter (principal); E87.1 Hypo-osmolality and hyponatremia; I50.32 Chronic diastolic (congestive) heart failure; I13.2 Hypertensive heart and chronic kidney disease with heart failure and with stage 5 chronic kidney disease, or end stage renal disease; Z68.41 Body mass index [BMI] 40.0-44.9, adult; I13.0 Hypertensive heart and chronic kidney disease with heart failure and stage 1 through stage 4 chronic kidney disease, or unspecified chronic kidney disease; N40.0 Benign prostatic hyperplasia without lower urinary tract symptoms; N39.0 Urinary tract infection, site not specified; E11.22 Type 2 diabetes mellitus with diabetic chronic kidney disease; N18.30 Chronic kidney disease, stage 3 unspecified; E78.5 Hyperlipidemia, unspecified; E03.9 Hypothyroidism, unspecified; F03.90 Unspecified dementia, unspecified severity, without behavioral disturbance, psychotic disturbance, mood disturbance, and anxiety; R53.1 Weakness; B96.5 Pseudomonas (aeruginosa) (mallei) (pseudomallei) as the cause of diseases classified elsewhere; E66.01 Morbid (severe) obesity due to excess calories; R53.81 Other malaise; J44.9 Chronic obstructive pulmonary disease, unspecified; F20.9 Schizophrenia, unspecified; F32.9 Major depressive disorder, single episode, unspecified; F41.9 Anxiety disorder, unspecified; Z88.1 Allergy status to other antibiotic agents; Z88.8 Allergy status to other drugs, medicaments and biological substances; Z98.890 Other specified postprocedural states; Z79.82 Long term (current) use of aspirin; Z79.899 Other long term (current) drug therapy; N31.9 Neuromuscular dysfunction of bladder, unspecified
CPT/HCPCS: 36415; 36416; 80048; 80053; 80164; 85025; 86140; 90471; 90662; 94664; G0008; J0692; J2250; J2997; J3010; J3490; J7620

== ENCOUNTER 2020-05-25 12:02 | Outpatient (CLI) | payer MEDICARE, OTHER ==
[2020-05-25 12:46] LABS: Bilirubin Negative (Negative); Blood, Urine Small (Negative); Clarity Slightly Cloudy (Clear); Glucose, Urine (Dipstick) Negative (Negative); Ketone, Urine Negative (Negative); Leukocyte Small (Negative); Nitrite Negative (Negative); Protein, Urine (Dipstick) Trace mg/dL (Neg-Trace); Urobilinogen 0.2 mg/dL (Less than 2)
[2020-05-25 12:54] LABS: RBC/HPF 0-3 HPF (0-3); Squamous Epithelial 0-3 HPF (0-3); WBC/HPF 21-50 HPF (0-3)
[2020-05-25 12:55] LABS: Bacteria/HPF 2+ HPF (None Seen); Urine Culture Reflex Yes Yes
== END 2020-05-25 12:03 | disposition home or self-care (01) ==
LOC: MADLAB 12:02
PROVIDERS: ATTEND Internal Medicine Infectious Disease
DX: R30.0 Dysuria (principal)
CPT/HCPCS: 81001; 87077; 87086; 87186

== ENCOUNTER 2020-05-26 17:35 | Emergency (ER) | payer MEDICARE, OTHER ==
[2020-05-26 19:14] LABS: #Basophils 0.2 thou/uL (0.0-0.2); #Eosinphils 0.4 thou/uL (0.0-0.7); #Neutrophils 9.4 thou/uL (1.40-6.50); %Basophils 1.3 % (0.0-1.0); %Eosinophils 2.7 % (0.0-10.0); %Lymphocytes 15.4 % (21.0-51.0); %Monocytes 8.1 % (0.0-10.0); %Neutrophils 72.5 % (42.0-75.0); Hemoglobin 12.9 g/dL (14.0-18.0); Mean Corpuscular HGB CONC 34.3 g/dL (32.0-36.0); Mean Corpuscular Hemoglobin 31.4 pg (27.0-31.0); Mean Corpuscular Volume 91.4 fL (78.0-98.0); Mean Platelet Volume 7.1 fL (7.4-10.4); Platelet Count 202 thou/uL (130-400); Red Blood Cell (RBC) Count 4.12 mill/uL (4.70-6.10); White Blood Cell (WBC) Count 12.9 thou/uL (4.8-10.8)
[2020-05-26 19:30] LABS: ALT (SGPT) 21 U/L (8-55); AST (SGOT) 15 U/L (5-34); Albumin 3.8 g/dL (3.5-5.0); Alkaline Phosphatase 85 U/L (40-110); Anion Gap 14 mmol/L (10-20); BUN (Urea Nitrogen) 18 mg/dL (8.4-25.7); Bilirubin, Total 0.2 mg/dL (0.2-1.2); Calc. Creatinine Clearance 0 mL/min (70-130); Calcium 9.2 mg/dL (7.8-10.44); Carbon Dioxide 28 mmol/L (22-29); Chloride 91 mmol/L (98-107); Estimated GFR-MDRD 44; Globulin 2.9 g/dL (2.4-3.5); Glucose 127 mg/dL (70-105); Lipase 32 U/L (8-78); Potassium 4.4 mmol/L (3.5-5.1); Protein, Total 6.7 g/dL (6.0-8.3); Sodium 129 mmol/L (136-145)
[2020-05-26 20:25] LABS: Bilirubin Negative (Negative); Blood, Urine Trace (Negative); Clarity Clear (Clear); Glucose, Urine (Dipstick) Negative (Negative); Ketone, Urine Negative (Negative); Leukocyte Trace (Negative); Nitrite Negative (Negative); Protein, Urine (Dipstick) Negative (Neg-Trace); Urobilinogen 0.2 mg/dL (Less than 2)
[2020-05-26 20:36] LABS: WBC/HPF 0-3 HPF (0-3)
[2020-05-26 20:37] LABS: Bacteria/HPF 1+ HPF (None Seen); Squamous Epithelial 0-3 HPF (0-3)
--- NOTE | 2020-05-26 21:05 | RAD ---
CHEST ONE VIEW: 05/26/20 HISTORY: Chest pain, weakness. COMPARISON: 04/08/20. FINDINGS: Cardiac silhouette is magnified by projection. Pulmonary vasculature is unremarkable. Mediastinum is midline. No lobar consolidation or evidence of pneumothorax. IMPRESSION: No abnormalities are demonstrated. POS: [facility]
[2020-05-26] MEDS ORDERED: Sodium Chloride 0.9% 500 ML ONE (21:48)
== END 2020-05-26 22:58 | disposition home or self-care (01) ==
LOC: MADERS 17:35
DX: E87.1 Hypo-osmolality and hyponatremia (principal); E11.9 Type 2 diabetes mellitus without complications; E78.5 Hyperlipidemia, unspecified; I11.0 Hypertensive heart disease with heart failure; I50.9 Heart failure, unspecified; E78.00 Pure hypercholesterolemia, unspecified; M19.90 Unspecified osteoarthritis, unspecified site; N40.0 Benign prostatic hyperplasia without lower urinary tract symptoms; F03.90 Unspecified dementia, unspecified severity, without behavioral disturbance, psychotic disturbance, mood disturbance, and anxiety; J44.9 Chronic obstructive pulmonary disease, unspecified; F31.9 Bipolar disorder, unspecified; F25.9 Schizoaffective disorder, unspecified; Z87.891 Personal history of nicotine dependence; Z79.82 Long term (current) use of aspirin; Z79.899 Other long term (current) drug therapy; Z86.73 Personal history of transient ischemic attack (TIA), and cerebral infarction without residual deficits
CPT/HCPCS: 36415; 71045; 80053; 81003; 81015; 83605; 83690; 83880; 84484; 85025; 93005; J7030

== ENCOUNTER 2020-06-13 12:18 | Outpatient (CLI) | payer MEDICARE ==
[2020-06-13 16:39] LABS: Albumin 4.1 g/dL (3.5-5.0); Anion Gap 15 mmol/L (10-20); BUN (Urea Nitrogen) 11 mg/dL (8.4-25.7); Calc. Creatinine Clearance 0 mL/min (70-130); Calcium 9.5 mg/dL (7.8-10.44); Carbon Dioxide 24 mmol/L (22-29); Chloride 95 mmol/L (98-107); Glucose 139 mg/dL (70-105); Magnesium 1.7 mg/dL (1.6-2.6); Phosphorus 3.1 mg/dL (2.3-4.7); Potassium 4.4 mmol/L (3.5-5.1); Sodium 130 mmol/L (136-145)
== END 2020-06-13 12:19 | disposition home or self-care (01) ==
LOC: MADLAB 12:18
PROVIDERS: ATTEND Internal Medicine Nephrology
DX: I12.9 Hypertensive chronic kidney disease with stage 1 through stage 4 chronic kidney disease, or unspecified chronic kidney disease (principal); N18.30 Chronic kidney disease, stage 3 unspecified; R60.9 Edema, unspecified
CPT/HCPCS: 80048; 82040; 83735; 84100

== ENCOUNTER 2020-06-19 13:55 | Outpatient (CLI) | payer MEDICARE ==
[2020-06-19 14:46] LABS: Anion Gap 16 mmol/L (10-20); BUN (Urea Nitrogen) 16 mg/dL (8.4-25.7); Calc. Creatinine Clearance 0 mL/min (70-130); Calcium 8.6 mg/dL (7.8-10.44); Carbon Dioxide 25 mmol/L (22-29); Chloride 99 mmol/L (98-107); Potassium 4.7 mmol/L (3.5-5.1); Sodium 135 mmol/L (136-145)
[2020-06-19 14:48] LABS: Glucose 155 mg/dL (70-105)
== END 2020-06-19 13:56 | disposition home or self-care (01) ==
LOC: MADLABSP 13:55
PROVIDERS: ATTEND Internal Medicine Nephrology
DX: I12.9 Hypertensive chronic kidney disease with stage 1 through stage 4 chronic kidney disease, or unspecified chronic kidney disease (principal); N18.30 Chronic kidney disease, stage 3 unspecified; R60.9 Edema, unspecified
CPT/HCPCS: 36415; 80048

== ENCOUNTER 2020-06-21 03:28 | Emergency (ER) | payer MEDICARE ==
[2020-06-21 04:06] LABS: #Basophils 0.1 thou/uL (0.0-0.2); #Eosinphils 0.2 thou/uL (0.0-0.7); #Lymphocytes 1.9 thou/uL (1.20-3.40); %Basophils 0.6 % (0.0-1.0); %Eosinophils 1.8 % (0.0-10.0); %Lymphocytes 19.1 % (21.0-51.0); %Monocytes 9.5 % (0.0-10.0); Hemoglobin 12.6 g/dL (14.0-18.0); Mean Corpuscular HGB CONC 34.3 g/dL (32.0-36.0); Mean Corpuscular Hemoglobin 31.2 pg (27.0-31.0); Mean Corpuscular Volume 90.9 fL (78.0-98.0); Mean Platelet Volume 7.4 fL (7.4-10.4); Platelet Count 211 thou/uL (130-400); RBC Distribution Width 11.6 % (11.5-14.5); Red Blood Cell (RBC) Count 4.02 mill/uL (4.70-6.10); White Blood Cell (WBC) Count 10.2 thou/uL (4.8-10.8)
[2020-06-21] MEDS ORDERED: Aspirin 325 MG TAB ONE (04:06)
[2020-06-21 04:14] LABS: Bilirubin Negative (Negative); Blood, Urine Small (Negative); Clarity Cloudy (Clear); Glucose, Urine (Dipstick) 250 mg/dL (Negative); Ketone, Urine Negative (Negative); Leukocyte Large (Negative); Nitrite Positive (Negative); Protein, Urine (Dipstick) Trace mg/dL (Neg-Trace); Specific Gravity, Urine 1.015 (1.005-1.030); Urobilinogen 0.2 mg/dL (Less than 2)
[2020-06-21 04:19] LABS: ALT (SGPT) 25 U/L (8-55); AST (SGOT) 16 U/L (5-34); Albumin 3.8 g/dL (3.5-5.0); Alkaline Phosphatase 82 U/L (40-110); Anion Gap 16 mmol/L (10-20); BUN (Urea Nitrogen) 16 mg/dL (8.4-25.7); Bilirubin, Total 0.2 mg/dL (0.2-1.2); Calc. Creatinine Clearance 0 mL/min (70-130); Calcium 8.8 mg/dL (7.8-10.44); Carbon Dioxide 25 mmol/L (22-29); Chloride 99 mmol/L (98-107); Globulin 2.8 g/dL (2.4-3.5); Glucose 186 mg/dL (70-105); Potassium 4.2 mmol/L (3.5-5.1); Protein, Total 6.6 g/dL (6.0-8.3); Sodium 136 mmol/L (136-145)
[2020-06-21 04:21] LABS: Bacteria/HPF 3+ HPF (None Seen); RBC/HPF 0-3 HPF (0-3); Squamous Epithelial None Seen HPF (0-3)
[2020-06-21] MEDS ORDERED: Cephalexin 500 MG CAP ONE (04:22)
--- NOTE | 2020-06-21 07:48 | RAD ---
EXAM: Single view of the chest HISTORY: Cough COMPARISON: 05/27/2020 FINDINGS: Single view of the chest shows a normal sized cardiomediastinal silhouette. There is no mook dence of consolidation, mass, or pleural effusion. No acute osseous abnormality. IMPRESSION: No evidence of acute cardiopulmonary disease
[2020-06-21 18:02] LABS: SARS-CoV-2 MS2 Positive; SARS-CoV-2 N Gene Positive; SARS-CoV-2 S Gene Positive; SARS-CoV-2 by NAA DETECTED (NotDetected); SARS-CoV-2 orf1ab Positive
== END 2020-06-21 05:28 | disposition home or self-care (01) ==
LOC: MADERS 03:28
DX: U07.1 COVID-19 (principal); N39.0 Urinary tract infection, site not specified; R10.816 Epigastric abdominal tenderness; M54.9 Dorsalgia, unspecified; E11.9 Type 2 diabetes mellitus without complications; E78.5 Hyperlipidemia, unspecified; J44.9 Chronic obstructive pulmonary disease, unspecified; I11.0 Hypertensive heart disease with heart failure; I50.9 Heart failure, unspecified; E03.9 Hypothyroidism, unspecified; M19.90 Unspecified osteoarthritis, unspecified site; Z86.73 Personal history of transient ischemic attack (TIA), and cerebral infarction without residual deficits; Z87.891 Personal history of nicotine dependence
CPT/HCPCS: 36415; 71045; 80053; 81003; 81015; 83605; 84484; 85025; 87040; 87077; 87086; 87635; 93005; U0003

== ENCOUNTER 2020-07-06 21:14 | Emergency (ER) | payer OTHER, MEDICARE ==
[2020-07-06 21:50] LABS: #Basophils 0.2 thou/uL (0.0-0.2); #Eosinphils 0.6 thou/uL (0.0-0.7); #Lymphocytes 1.7 thou/uL (1.20-3.40); #Monocytes 0.9 thou/uL (0.11-0.59); #Neutrophils 7.6 thou/uL (1.40-6.50); %Basophils 1.5 % (0.0-1.0); %Eosinophils 5.3 % (0.0-10.0); %Lymphocytes 15.5 % (21.0-51.0); %Monocytes 8.5 % (0.0-10.0); %Neutrophils 69.2 % (42.0-75.0); Hemoglobin 11.4 g/dL (14.0-18.0); Mean Corpuscular HGB CONC 35.5 g/dL (32.0-36.0); Mean Corpuscular Hemoglobin 31.5 pg (27.0-31.0); Mean Corpuscular Volume 88.9 fL (78.0-98.0); Mean Platelet Volume 7.7 fL (7.4-10.4); Platelet Count 191 thou/uL (130-400); RBC Distribution Width 11.5 % (11.5-14.5); Red Blood Cell (RBC) Count 3.63 mill/uL (4.70-6.10)
[2020-07-06 22:07] LABS: ALT (SGPT) 16 U/L (8-55); AST (SGOT) 12 U/L (5-34); Albumin 3.6 g/dL (3.5-5.0); Alkaline Phosphatase 67 U/L (40-110); Anion Gap 15 mmol/L (10-20); BUN (Urea Nitrogen) 13 mg/dL (8.4-25.7); Bilirubin, Total 0.2 mg/dL (0.2-1.2); Calc. Creatinine Clearance 0 mL/min (70-130); Calcium 8.5 mg/dL (7.8-10.44); Carbon Dioxide 25 mmol/L (22-29); Chloride 90 mmol/L (98-107); Globulin 2.5 g/dL (2.4-3.5); Glucose 122 mg/dL (70-105); Potassium 4.2 mmol/L (3.5-5.1); Protein, Total 6.1 g/dL (6.0-8.3); Sodium 126 mmol/L (136-145)
[2020-07-06] MEDS ORDERED: Sodium Chloride 0.9% 1,000 ML ONE (22:16)
== END 2020-07-07 00:04 | disposition left against medical advice (07) ==
LOC: MADERS 21:14
DX: K59.00 Constipation, unspecified (principal); E87.1 Hypo-osmolality and hyponatremia; I11.0 Hypertensive heart disease with heart failure; I50.9 Heart failure, unspecified; E11.9 Type 2 diabetes mellitus without complications; E03.9 Hypothyroidism, unspecified; E78.5 Hyperlipidemia, unspecified; J44.9 Chronic obstructive pulmonary disease, unspecified; Z87.891 Personal history of nicotine dependence; Z79.899 Other long term (current) drug therapy; Z79.82 Long term (current) use of aspirin
CPT/HCPCS: 80053; 83605; 85025; 99285; J7050

== ENCOUNTER 2020-07-08 19:00 | Emergency (ER) | payer OTHER, MEDICARE ==
[2020-07-08 20:28] LABS: Anion Gap 16 mmol/L (10-20); BUN (Urea Nitrogen) 17 mg/dL (8.4-25.7); Calc. Creatinine Clearance 0 mL/min (70-130); Carbon Dioxide 27 mmol/L (22-29); Chloride 90 mmol/L (98-107); Glucose 139 mg/dL (70-105); Potassium 4.7 mmol/L (3.5-5.1); Sodium 128 mmol/L (136-145)
== END 2020-07-08 22:40 | disposition home or self-care (01) ==
LOC: MADERS 19:00
DX: S76.912A Strain of unspecified muscles, fascia and tendons at thigh level, left thigh, initial encounter (principal); S76.911A Strain of unspecified muscles, fascia and tendons at thigh level, right thigh, initial encounter; E87.1 Hypo-osmolality and hyponatremia; I11.0 Hypertensive heart disease with heart failure; I50.9 Heart failure, unspecified; E03.9 Hypothyroidism, unspecified; E11.9 Type 2 diabetes mellitus without complications; E78.5 Hyperlipidemia, unspecified; J44.9 Chronic obstructive pulmonary disease, unspecified; Z87.891 Personal history of nicotine dependence; Z79.82 Long term (current) use of aspirin; Z79.899 Other long term (current) drug therapy; W19.XXXA Unspecified fall, initial encounter
CPT/HCPCS: 36415; 80048; 99283

== ENCOUNTER 2020-09-01 00:37 | Emergency (ER) | payer MEDICARE, OTHER ==
[2020-09-01 01:16] LABS: #Basophils 0.1 thou/uL (0.0-0.2); #Eosinphils 0.3 thou/uL (0.0-0.7); #Lymphocytes 2.1 thou/uL (1.20-3.40); #Monocytes 0.7 thou/uL (0.11-0.59); #Neutrophils 6.2 thou/uL (1.40-6.50); %Eosinophils 2.9 % (0.0-10.0); %Lymphocytes 21.9 % (21.0-51.0); %Monocytes 7.6 % (0.0-10.0); %Neutrophils 66.6 % (42.0-75.0); Hemoglobin 13.2 g/dL (14.0-18.0); Mean Corpuscular HGB CONC 33.5 g/dL (32.0-36.0); Mean Corpuscular Hemoglobin 30.2 pg (27.0-31.0); Mean Corpuscular Volume 90.2 fL (78.0-98.0); Mean Platelet Volume 6.8 fL (7.4-10.4); Platelet Count 223 thou/uL (130-400); RBC Distribution Width 11.6 % (11.5-14.5); Red Blood Cell (RBC) Count 4.36 mill/uL (4.70-6.10); White Blood Cell (WBC) Count 9.4 thou/uL (4.8-10.8)
[2020-09-01 01:18] LABS: Bilirubin Negative (Negative); Blood, Urine Moderate (Negative); Clarity Clear (Clear); Glucose, Urine (Dipstick) 100 mg/dL (Negative); Ketone, Urine Negative (Negative); Leukocyte Moderate (Negative); Nitrite Negative (Negative); Protein, Urine (Dipstick) Trace mg/dL (Neg-Trace); Urobilinogen 0.2 mg/dL (Less than 2)
[2020-09-01 01:25] LABS: Amphetamine Not Detected (NotDetected); Bacteria/HPF 1+ HPF (None Seen); Barbiturates Screen Not Detected (NotDetected); Benzodiazepine Screen Not Detected (NotDetected); Cocaine Metabolite Screen Not Detected (NotDetected); Medtox Control Line Valid? VALID (VALID); Methadone Not Detected (NotDetected); Methamphetamine Not Detected (NotDetected); Opiate Screen Not Detected (NotDetected); Oxycodone Screen Not Detected (NotDetected); Phencyclidine (PCP) Not Detected (NotDetected); RBC/HPF 0-3 HPF (0-3); Squamous Epithelial 0-3 HPF (0-3); THC/Cannabinoid Screen Not Detected (NotDetected); Tricyclic Screen Not Detected (NotDetected)
[2020-09-01 01:30] LABS: ALT (SGPT) 24 U/L (8-55); AST (SGOT) 17 U/L (5-34); Albumin 3.8 g/dL (3.5-5.0); Alkaline Phosphatase 90 U/L (40-110); Anion Gap 16 mmol/L (10-20); BUN (Urea Nitrogen) 20 mg/dL (8.4-25.7); Bilirubin, Total 0.2 mg/dL (0.2-1.2); Calc. Creatinine Clearance 0 mL/min (70-130); Carbon Dioxide 27 mmol/L (22-29); Chloride 96 mmol/L (98-107); Glucose 153 mg/dL (70-105); Potassium 4.1 mmol/L (3.5-5.1); Protein, Total 6.8 g/dL (6.0-8.3); Sodium 135 mmol/L (136-145)
[2020-09-01] MEDS ORDERED: Sulfameth/Trimethoprim DS 800-160mg TAB ONE (02:35)
--- NOTE | 2020-09-01 08:04 | RAD ---
RADIOGRAPH CHEST 1 VIEW: DATE: 09/01/2020 HISTORY: 60-year-old male with chest pain FINDINGS: The visualized lung hansen are clear. The cardiomediastinal silhouette and hilar shadows are normal. The lateral costophrenic angles are sharp. There is no pneumothorax. IMPRESSION: Negative.
== END 2020-09-01 02:47 | disposition home or self-care (01) ==
LOC: MADERS 00:37
DX: N39.0 Urinary tract infection, site not specified (principal); E11.9 Type 2 diabetes mellitus without complications; E03.9 Hypothyroidism, unspecified; E78.5 Hyperlipidemia, unspecified; I10 Essential (primary) hypertension; J44.9 Chronic obstructive pulmonary disease, unspecified; Z87.891 Personal history of nicotine dependence; Z79.82 Long term (current) use of aspirin; Z79.84 Long term (current) use of oral hypoglycemic drugs; Z79.899 Other long term (current) drug therapy
CPT/HCPCS: 36415; 71045; 80053; 80306; 81003; 81015; 83605; 85025; 87077; 87086; 87186; 93005

== ENCOUNTER 2020-12-12 02:43 | Emergency (ER) | payer MEDICARE, OTHER ==
[2020-12-12 03:14] LABS: Bilirubin Negative (Negative); Blood, Urine Moderate (Negative); Clarity Turbid (Clear); Glucose, Urine (Dipstick) Negative (Negative); Ketone, Urine Negative (Negative); Leukocyte Large (Negative); Nitrite Positive (Negative); Protein, Urine (Dipstick) 30 mg/dL (Neg-Trace); Specific Gravity, Urine 1.015 (1.005-1.030); Urobilinogen 0.2 mg/dL (Less than 2)
[2020-12-12 03:20] LABS: Bacteria/HPF 3+ HPF (None Seen); WBC/HPF 21-50 HPF (0-3)
[2020-12-12] MEDS ORDERED: cefTRIAXone\\ROCEPHIN 1 GM VIAL ONE (04:03)
[2020-12-12] MEDS ORDERED: Lidocaine 1% 20 ML MDV ONE (04:03)
[2020-12-12] MEDS ORDERED: Magnesium Citrate 300 ML BOT ONE (04:17)
== END 2020-12-12 07:30 | disposition home or self-care (01) ==
LOC: MADERS 02:43
DX: N30.90 Cystitis, unspecified without hematuria (principal); K59.00 Constipation, unspecified; I11.0 Hypertensive heart disease with heart failure; I50.9 Heart failure, unspecified; E11.9 Type 2 diabetes mellitus without complications; E03.9 Hypothyroidism, unspecified; E78.5 Hyperlipidemia, unspecified; J44.9 Chronic obstructive pulmonary disease, unspecified; Z87.891 Personal history of nicotine dependence
CPT/HCPCS: 74018; 81001; 87077; 87086; 96372; J0696

== ENCOUNTER 2020-12-24 20:58 | Emergency (ER) | payer OTHER ==
[~2020-12-24 20:58] MED LIST changes: -Cefdinir 300 MG CAP ONE; -Finasteride 5 MG TAB ONE; +Iopamidol 370 76% 100 ML VIAL ONE; -traZODone HCl 50 MG TAB ONE
[2020-12-24 21:22] LABS: Bilirubin Negative (Negative); Blood, Urine Large (Negative); Clarity Clear (Clear); Glucose, Urine (Dipstick) 500 mg/dL (Negative); Ketone, Urine Negative (Negative); Leukocyte Moderate (Negative); Nitrite Negative (Negative); Protein, Urine (Dipstick) 100 mg/dL (Neg-Trace); Urobilinogen 0.2 mg/dL (Less than 2); pH, Urine 5.5 (5.0-9.0)
[2020-12-24 21:28] LABS: Bacteria/HPF 1+ HPF (None Seen); Squamous Epithelial 0-3 HPF (0-3)
[2020-12-24 21:29] LABS: #Basophils 0.1 thou/uL (0.0-0.2); #Eosinphils 0.4 thou/uL (0.0-0.7); #Monocytes 1.1 thou/uL (0.11-0.59); #Neutrophils 8.6 thou/uL (1.40-6.50); %Eosinophils 3.3 % (0.0-10.0); %Lymphocytes 16.7 % (21.0-51.0); %Monocytes 8.8 % (0.0-10.0); %Neutrophils 70.3 % (42.0-75.0); Hemoglobin 13.8 g/dL (14.0-18.0); Mean Corpuscular HGB CONC 35.3 g/dL (32.0-36.0); Mean Corpuscular Hemoglobin 31.6 pg (27.0-31.0); Mean Corpuscular Volume 89.5 fL (78.0-98.0); Mean Platelet Volume 8.9 fL (7.4-10.4); Platelet Count 209 thou/uL (130-400); RBC Distribution Width 11.9 % (11.5-14.5); Red Blood Cell (RBC) Count 4.38 mill/uL (4.70-6.10); White Blood Cell (WBC) Count 12.2 thou/uL (4.8-10.8)
[2020-12-24 21:41] LABS: ALT (SGPT) 37 U/L (8-55); AST (SGOT) 24 U/L (5-34); Alkaline Phosphatase 98 U/L (40-110); Anion Gap 21 mmol/L (10-20); BUN (Urea Nitrogen) 15 mg/dL (8.4-25.7); Bilirubin, Total 0.5 mg/dL (0.2-1.2); Calc. Creatinine Clearance 0 mL/min (70-130); Calcium 8.8 mg/dL (7.8-10.44); Carbon Dioxide 19 mmol/L (22-29); Chloride 89 mmol/L (98-107); Glucose 175 mg/dL (70-105); Lipase 247 U/L (8-78); Magnesium 1.6 mg/dL (1.6-2.6); Potassium 4.1 mmol/L (3.5-5.1); Sodium 125 mmol/L (136-145)
[2020-12-24] MEDS ORDERED: Sodium Chloride 0.9% 500 ML ONE (22:05)
[2020-12-24 23:40] LABS: SARS-CoV-2 NAA Rapid Test Not Detected (NotDetected)
[2020-12-25] MEDS ORDERED: Sodium Chloride 0.9% 100 ML ONE (00:06)
[2020-12-25] MEDS ORDERED: Piperacillin/Tazobactam 4.5 GM VIAL ONE (00:06)
[2020-12-25] MEDS ORDERED: Sodium Chloride 0.9% 1,000 ML ONE (00:06)
== END 2020-12-25 02:25 ==
LOC: MADERS 20:58
DX: K85.90 Acute pancreatitis without necrosis or infection, unspecified (principal); N17.9 Acute kidney failure, unspecified; E87.1 Hypo-osmolality and hyponatremia; N39.0 Urinary tract infection, site not specified; Z20.822 Contact with and (suspected) exposure to COVID-19; I11.0 Hypertensive heart disease with heart failure; I50.9 Heart failure, unspecified; E11.9 Type 2 diabetes mellitus without complications; E78.5 Hyperlipidemia, unspecified; E78.00 Pure hypercholesterolemia, unspecified; E03.9 Hypothyroidism, unspecified; J44.9 Chronic obstructive pulmonary disease, unspecified; Z87.891 Personal history of nicotine dependence
CPT/HCPCS: 74177; 80053; 81003; 81015; 83690; 83735; 85025; 96365; J2543; J3490; J7030; J7050; Q9967; U0002

== ENCOUNTER 2020-12-31 22:08 | Emergency (ER) | payer OTHER, MEDICARE ==
[2020-12-31 23:14] LABS: #Basophils 0.2 thou/uL (0.0-0.2); #Eosinphils 0.5 thou/uL (0.0-0.7); #Lymphocytes 2.1 thou/uL (1.20-3.40); #Monocytes 0.8 thou/uL (0.11-0.59); #Neutrophils 8.6 thou/uL (1.40-6.50); %Basophils 1.2 % (0.0-1.0); %Eosinophils 4.1 % (0.0-10.0); %Monocytes 6.5 % (0.0-10.0); %Neutrophils 71.2 % (42.0-75.0); Hemoglobin 12.3 g/dL (14.0-18.0); Mean Corpuscular HGB CONC 33.7 g/dL (32.0-36.0); Mean Corpuscular Hemoglobin 31.3 pg (27.0-31.0); Mean Corpuscular Volume 92.9 fL (78.0-98.0); Mean Platelet Volume 7.7 fL (7.4-10.4); Platelet Count 211 thou/uL (130-400); RBC Distribution Width 12.5 % (11.5-14.5); Red Blood Cell (RBC) Count 3.93 mill/uL (4.70-6.10); White Blood Cell (WBC) Count 12.1 thou/uL (4.8-10.8)
[2020-12-31 23:38] LABS: ALT (SGPT) 31 U/L (8-55); AST (SGOT) 19 U/L (5-34); Albumin 3.8 g/dL (3.5-5.0); Alkaline Phosphatase 83 U/L (40-110); Anion Gap 17 mmol/L (10-20); BUN (Urea Nitrogen) 14 mg/dL (8.4-25.7); Bilirubin, Total 0.3 mg/dL (0.2-1.2); Calc. Creatinine Clearance 0 mL/min (70-130); Calcium 9.1 mg/dL (7.8-10.44); Carbon Dioxide 23 mmol/L (22-29); Chloride 93 mmol/L (98-107); Globulin 2.6 g/dL (2.4-3.5); Glucose 194 mg/dL (70-105); Lipase 44 U/L (8-78); Potassium 4.1 mmol/L (3.5-5.1); Protein, Total 6.4 g/dL (6.0-8.3); Sodium 129 mmol/L (136-145)
[2021-01-01 00:37] LABS: Bilirubin Negative (Negative); Blood, Urine Moderate (Negative); Clarity Clear (Clear); Glucose, Urine (Dipstick) 250 mg/dL (Negative); Ketone, Urine Negative (Negative); Leukocyte Negative (Negative); Nitrite Negative (Negative); Protein, Urine (Dipstick) Negative (Neg-Trace); Urobilinogen 0.2 mg/dL (Less than 2); pH, Urine 6.5 (5.0-9.0)
[2021-01-01 00:41] LABS: Bacteria/HPF None Seen HPF (None Seen); RBC/HPF 0-3 HPF (0-3); Squamous Epithelial 0-3 HPF (0-3); WBC/HPF 0-3 HPF (0-3)
[2021-01-01] MEDS ORDERED: Sodium Chloride 0.9% 2,000 ML ONE (01:24)
== END 2021-01-01 04:43 | disposition home or self-care (01) ==
LOC: MADERS 22:08
DX: E86.0 Dehydration (principal); R10.13 Epigastric pain; I11.0 Hypertensive heart disease with heart failure; I50.9 Heart failure, unspecified; E11.9 Type 2 diabetes mellitus without complications; E78.5 Hyperlipidemia, unspecified; E78.00 Pure hypercholesterolemia, unspecified; J44.9 Chronic obstructive pulmonary disease, unspecified; Z87.891 Personal history of nicotine dependence; Z79.82 Long term (current) use of aspirin; Z79.899 Other long term (current) drug therapy
CPT/HCPCS: 36415; 80053; 81003; 81015; 83605; 83690; 85025; 99284; J7050

== ENCOUNTER 2021-01-02 15:59 | Outpatient (CLI) | payer OTHER, MEDICARE ==
[2021-01-02 17:00] LABS: Anion Gap 20 mmol/L (10-20); BUN (Urea Nitrogen) 16 mg/dL (8.4-25.7); Calc. Creatinine Clearance 0 mL/min (70-130); Calcium 9.8 mg/dL (7.8-10.44); Carbon Dioxide 24 mmol/L (22-29); Chloride 95 mmol/L (98-107); Glucose 141 mg/dL (70-105); Potassium 4.5 mmol/L (3.5-5.1); Sodium 134 mmol/L (136-145)
[2021-01-02 17:06] LABS: Hemoglobin 12.7 g/dL (14.0-18.0)
[2021-01-02 22:51] LABS: Creatinine, Urine Less than 20.00 mg/dL (63-166); Protein, Urine Random Quant 16 mg/dL (1-14)
== END 2021-01-02 16:00 | disposition home or self-care (01) ==
LOC: MADLAB 15:59
PROVIDERS: ATTEND Family Medicine
DX: N18.30 Chronic kidney disease, stage 3 unspecified (principal); D63.1 Anemia in chronic kidney disease; R80.9 Proteinuria, unspecified; E55.9 Vitamin D deficiency, unspecified; D50.9 Iron deficiency anemia, unspecified; R53.82 Chronic fatigue, unspecified
CPT/HCPCS: 80048; 82306; 82570; 83970; 84156; 85014; 85018

== ENCOUNTER 2021-01-07 08:14 | Emergency (ER) | payer MEDICARE, OTHER ==
[2021-01-07] MEDS ORDERED: Iopamidol 370 76% 100 ML VIAL IV ONE (08:15)
[2021-01-07 09:07] LABS: #Basophils 0.1 thou/uL (0.0-0.2); #Eosinphils 0.5 thou/uL (0.0-0.7); #Lymphocytes 1.3 thou/uL (1.20-3.40); #Monocytes 0.8 thou/uL (0.11-0.59); %Basophils 1.4 % (0.0-1.0); %Eosinophils 4.9 % (0.0-10.0); %Lymphocytes 13.5 % (21.0-51.0); %Monocytes 8.3 % (0.0-10.0); Mean Corpuscular HGB CONC 32.9 g/dL (32.0-36.0); Mean Corpuscular Hemoglobin 30.5 pg (27.0-31.0); Mean Corpuscular Volume 92.8 fL (78.0-98.0); Mean Platelet Volume 8.2 fL (7.4-10.4); Platelet Count 212 thou/uL (130-400); RBC Distribution Width 12.7 % (11.5-14.5); Red Blood Cell (RBC) Count 4.27 mill/uL (4.70-6.10); White Blood Cell (WBC) Count 9.7 thou/uL (4.8-10.8)
[2021-01-07] MEDS ORDERED: Ondansetron PF 4 MG/2 ML Vial ONE (09:09)
[2021-01-07 09:18] LABS: ALT (SGPT) 25 U/L (8-55); AST (SGOT) 15 U/L (5-34); Albumin 3.9 g/dL (3.5-5.0); Alkaline Phosphatase 90 U/L (40-110); Anion Gap 17 mmol/L (10-20); BUN (Urea Nitrogen) 22 mg/dL (8.4-25.7); Bilirubin, Total 0.2 mg/dL (0.2-1.2); Calc. Creatinine Clearance 0 mL/min (70-130); Carbon Dioxide 25 mmol/L (22-29); Chloride 94 mmol/L (98-107); Glucose 222 mg/dL (70-105); Lipase 80 U/L (8-78); Potassium 4.8 mmol/L (3.5-5.1); Protein, Total 6.9 g/dL (6.0-8.3); Sodium 131 mmol/L (136-145)
== END 2021-01-07 10:12 | disposition home or self-care (01) ==
LOC: MADERS 08:14
DX: K80.80 Other cholelithiasis without obstruction (principal); I11.0 Hypertensive heart disease with heart failure; I50.9 Heart failure, unspecified; E11.9 Type 2 diabetes mellitus without complications; E78.5 Hyperlipidemia, unspecified; E78.00 Pure hypercholesterolemia, unspecified; J44.9 Chronic obstructive pulmonary disease, unspecified; Z87.891 Personal history of nicotine dependence; Z79.899 Other long term (current) drug therapy; Z79.82 Long term (current) use of aspirin
CPT/HCPCS: 74177; 80053; 83690; 85025; 96374; J2405; Q9967

== ENCOUNTER 2021-01-27 11:37 | Emergency (ER) | payer OTHER ==
[2021-01-27] MEDS ORDERED: Nitroglycerin 2% Ointment 1 INCH/1 GM Packet ONE (11:56)
[2021-01-27] MEDS ORDERED: Amlodipine 5 MG TAB ONE (11:56)
[2021-01-27] MEDS ORDERED: Lisinopril 10 MG TAB ONE (11:56)
[2021-01-27 12:18] LABS: #Basophils 0.1 thou/uL (0.0-0.2); #Eosinphils 0.2 thou/uL (0.0-0.7); #Lymphocytes 1.2 thou/uL (1.20-3.40); #Monocytes 0.9 thou/uL (0.11-0.59); #Neutrophils 8.2 thou/uL (1.40-6.50); %Basophils 0.8 % (0.0-1.0); %Eosinophils 2.2 % (0.0-10.0); %Lymphocytes 11.4 % (21.0-51.0); %Monocytes 8.8 % (0.0-10.0); %Neutrophils 76.9 % (42.0-75.0); Hemoglobin 13.8 g/dL (14.0-18.0); Mean Corpuscular HGB CONC 33.1 g/dL (32.0-36.0); Mean Corpuscular Volume 93.7 fL (78.0-98.0); Mean Platelet Volume 6.7 fL (7.4-10.4); Platelet Count 244 thou/uL (130-400); RBC Distribution Width 12.7 % (11.5-14.5); Red Blood Cell (RBC) Count 4.44 mill/uL (4.70-6.10); White Blood Cell (WBC) Count 10.7 thou/uL (4.8-10.8)
[2021-01-27 12:36] LABS: ALT (SGPT) 59 U/L (8-55); AST (SGOT) 38 U/L (5-34); Albumin 3.8 g/dL (3.5-5.0); Alkaline Phosphatase 102 U/L (40-110); Anion Gap 19 mmol/L (10-20); BUN (Urea Nitrogen) 22 mg/dL (8.4-25.7); Bilirubin, Total 0.4 mg/dL (0.2-1.2); Calc. Creatinine Clearance 0 mL/min (70-130); Calcium 9.9 mg/dL (7.8-10.44); Carbon Dioxide 23 mmol/L (22-29); Chloride 91 mmol/L (98-107); Globulin 3.2 g/dL (2.4-3.5); Glucose 193 mg/dL (70-105); Magnesium 1.9 mg/dL (1.6-2.6); Potassium 4.7 mmol/L (3.5-5.1); Sodium 128 mmol/L (136-145)
[2021-01-27 13:03] LABS: Bilirubin Negative (Negative); Blood, Urine Moderate (Negative); Glucose, Urine (Dipstick) 500 mg/dL (Negative); Ketone, Urine Negative (Negative); Leukocyte Moderate (Negative); Nitrite Negative (Negative); Protein, Urine (Dipstick) 100 mg/dL (Neg-Trace); Urobilinogen 0.2 mg/dL (Less than 2); pH, Urine 5.5 (5.0-9.0)
[2021-01-27 13:14] LABS: Clarity Hazy (Clear)
[2021-01-27 13:15] LABS: Bacteria/HPF 3+ HPF (None Seen); Squamous Epithelial None Seen HPF (0-3); WBC/HPF Greater Than 50 HPF (0-3)
[2021-01-27] MEDS ORDERED: Furosemide 20 MG/2 ML VIAL ONE ×2 (14:14→14:54)
[2021-01-27] MEDS ORDERED: cefTRIAXone\\ROCEPHIN 1 GM VIAL ONE (14:14)
[2021-01-27] MEDS ORDERED: Sodium Chloride 0.9% 100 ML ONE (14:14)
== END 2021-01-27 15:03 | disposition home or self-care (01) ==
LOC: MADERS 11:37
DX: I11.0 Hypertensive heart disease with heart failure (principal); I50.9 Heart failure, unspecified; E87.70 Fluid overload, unspecified; N39.0 Urinary tract infection, site not specified; R06.02 Shortness of breath; R60.0 Localized edema; R06.03 Acute respiratory distress; E11.9 Type 2 diabetes mellitus without complications; E78.5 Hyperlipidemia, unspecified; E78.00 Pure hypercholesterolemia, unspecified; J44.9 Chronic obstructive pulmonary disease, unspecified; Z87.891 Personal history of nicotine dependence; Z79.899 Other long term (current) drug therapy; Z79.82 Long term (current) use of aspirin; Z79.84 Long term (current) use of oral hypoglycemic drugs
CPT/HCPCS: 71045; 80053; 81003; 81015; 83735; 83880; 84484; 85025; 87077; 87086; 87186; 93005; 96365; 96375; 96376; J0696; J1940; J3490

== ENCOUNTER 2021-01-29 02:49 | Emergency (ER) | payer OTHER ==
[2021-01-29 03:45] LABS: #Basophils 0.1 thou/uL (0.0-0.2); #Eosinphils 0.3 thou/uL (0.0-0.7); #Monocytes 0.9 thou/uL (0.11-0.59); #Neutrophils 6.5 thou/uL (1.40-6.50); %Basophils 1.3 % (0.0-1.0); %Eosinophils 2.9 % (0.0-10.0); %Lymphocytes 20.3 % (21.0-51.0); %Monocytes 8.9 % (0.0-10.0); %Neutrophils 66.8 % (42.0-75.0); Hemoglobin 13.9 g/dL (14.0-18.0); Mean Corpuscular HGB CONC 33.5 g/dL (32.0-36.0); Mean Corpuscular Hemoglobin 31.2 pg (27.0-31.0); Mean Platelet Volume 7.7 fL (7.4-10.4); Platelet Count 236 thou/uL (130-400); RBC Distribution Width 12.5 % (11.5-14.5); Red Blood Cell (RBC) Count 4.45 mill/uL (4.70-6.10); White Blood Cell (WBC) Count 9.7 thou/uL (4.8-10.8)
[2021-01-29 04:03] LABS: ALT (SGPT) 57 U/L (8-55); AST (SGOT) 33 U/L (5-34); Albumin 3.9 g/dL (3.5-5.0); Alkaline Phosphatase 99 U/L (40-110); Anion Gap 19 mmol/L (10-20); BUN (Urea Nitrogen) 27 mg/dL (8.4-25.7); Bilirubin, Total 0.3 mg/dL (0.2-1.2); Calc. Creatinine Clearance 0 mL/min (70-130); Calcium 9.3 mg/dL (7.8-10.44); Carbon Dioxide 23 mmol/L (22-29); Chloride 94 mmol/L (98-107); Globulin 3.2 g/dL (2.4-3.5); Glucose 160 mg/dL (70-105); Lipase 101 U/L (8-78); Potassium 4.8 mmol/L (3.5-5.1); Protein, Total 7.1 g/dL (6.0-8.3); Sodium 131 mmol/L (136-145)
[2021-01-29] MEDS ORDERED: cefTRIAXone\\ROCEPHIN 1 GM VIAL ONE (04:22)
[2021-01-29 04:45] LABS: Bilirubin Negative (Negative); Blood, Urine Large (Negative); Clarity Cloudy (Clear); Glucose, Urine (Dipstick) 250 mg/dL (Negative); Ketone, Urine Negative (Negative); Leukocyte Moderate (Negative); Nitrite Negative (Negative); Protein, Urine (Dipstick) 30 mg/dL (Neg-Trace); Urobilinogen 0.2 mg/dL (Less than 2)
[2021-01-29 04:51] LABS: Bacteria/HPF 2+ HPF (None Seen); Mucous/LPF 2+ LPF (<2+); Yeast-Budding 2+ HPF (None Seen)
[2021-01-29] MEDS ORDERED: Sodium Chloride 0.9% 50 ML BAG ONE (07:05)
== END 2021-01-29 05:34 | disposition home or self-care (01) ==
LOC: MADERS 02:49
DX: N39.0 Urinary tract infection, site not specified (principal); E11.9 Type 2 diabetes mellitus without complications; I11.0 Hypertensive heart disease with heart failure; I50.9 Heart failure, unspecified; E78.5 Hyperlipidemia, unspecified; E78.00 Pure hypercholesterolemia, unspecified; J44.9 Chronic obstructive pulmonary disease, unspecified; Z87.891 Personal history of nicotine dependence; Z87.19 Personal history of other diseases of the digestive system; Z79.82 Long term (current) use of aspirin; Z79.899 Other long term (current) drug therapy; Z79.84 Long term (current) use of oral hypoglycemic drugs
CPT/HCPCS: 80053; 81003; 81015; 83690; 85025; 96374; J0696

== ENCOUNTER 2021-03-28 00:05 | Emergency (ER) | payer MEDICARE ==
[2021-03-28 02:03] LABS: #Basophils 0.2 thou/uL (0.0-0.2); #Eosinphils 0.3 thou/uL (0.0-0.7); #Lymphocytes 1.8 thou/uL (1.20-3.40); #Monocytes 0.9 thou/uL (0.11-0.59); #Neutrophils 7.1 thou/uL (1.40-6.50); %Basophils 1.5 % (0.0-1.0); %Lymphocytes 17.2 % (21.0-51.0); %Monocytes 8.3 % (0.0-10.0); Mean Corpuscular HGB CONC 34.4 g/dL (32.0-36.0); Mean Corpuscular Hemoglobin 31.3 pg (27.0-31.0); Mean Corpuscular Volume 91.1 fL (78.0-98.0); Mean Platelet Volume 7.2 fL (7.4-10.4); Platelet Count 227 thou/uL (130-400); RBC Distribution Width 11.5 % (11.5-14.5); Red Blood Cell (RBC) Count 4.16 mill/uL (4.70-6.10); White Blood Cell (WBC) Count 10.2 thou/uL (4.8-10.8)
[2021-03-28 02:18] LABS: ALT (SGPT) 32 U/L (8-55); AST (SGOT) 23 U/L (5-34); Albumin 3.8 g/dL (3.5-5.0); Alkaline Phosphatase 76 U/L (40-110); Anion Gap 16 mmol/L (10-20); BUN (Urea Nitrogen) 12 mg/dL (8.4-25.7); Bilirubin, Total 0.4 mg/dL (0.2-1.2); Calc. Creatinine Clearance 0 mL/min (70-130); Carbon Dioxide 26 mmol/L (22-29); Chloride 89 mmol/L (98-107); Globulin 2.6 g/dL (2.4-3.5); Glucose 144 mg/dL (70-105); Protein, Total 6.4 g/dL (6.0-8.3)
[2021-03-28 02:20] LABS: Sodium 127 mmol/L (136-145)
[2021-03-28] MEDS ORDERED: Sodium Chloride 0.9% 1,000 ML ONE (02:51)
[2021-03-28] MEDS ORDERED: Iopamidol 370 76% 100 ML VIAL ONE (10:58)
== END 2021-03-28 04:33 | disposition home or self-care (01) ==
LOC: MADERS 00:05
DX: R10.84 Generalized abdominal pain (principal); E87.1 Hypo-osmolality and hyponatremia; I11.0 Hypertensive heart disease with heart failure; I50.9 Heart failure, unspecified; E11.9 Type 2 diabetes mellitus without complications; E78.5 Hyperlipidemia, unspecified; E78.00 Pure hypercholesterolemia, unspecified; Z87.891 Personal history of nicotine dependence; Z79.82 Long term (current) use of aspirin; Z79.899 Other long term (current) drug therapy
CPT/HCPCS: 74177; 80053; 85025; 96372; J0500; J7050; Q9967

== ENCOUNTER 2021-04-12 19:46 | Emergency (ER) | payer MEDICARE ==
[2021-04-12] MEDS ORDERED: Magnesium Citrate 300 ML BOT ONE (22:24)
== END 2021-04-12 23:50 | disposition home or self-care (01) ==
LOC: MADERS 19:46
DX: K59.00 Constipation, unspecified (principal); R11.0 Nausea; R60.0 Localized edema; I11.0 Hypertensive heart disease with heart failure; I50.9 Heart failure, unspecified; E11.9 Type 2 diabetes mellitus without complications; E78.5 Hyperlipidemia, unspecified; J44.9 Chronic obstructive pulmonary disease, unspecified; E78.00 Pure hypercholesterolemia, unspecified; Z87.891 Personal history of nicotine dependence; Z79.82 Long term (current) use of aspirin; Z79.899 Other long term (current) drug therapy
CPT/HCPCS: 71045; 74176

== ENCOUNTER 2021-04-13 11:01 | Emergency (ER) | payer MEDICARE ==
[~2021-04-13 11:01] MED LIST changes: -Iopamidol 370 76% 100 ML VIAL ONE; +Sodium Chloride 0.9% 100 ML BAG ONE
[2021-04-13] MEDS ORDERED: Ondansetron PF 4 MG/2 ML Vial ONE (13:01)
[2021-04-13 13:23] LABS: ALT (SGPT) 40 U/L (8-55); AST (SGOT) 26 U/L (5-34); Alkaline Phosphatase 102 U/L (40-110); Anion Gap 19 mmol/L (10-20); BUN (Urea Nitrogen) 14 mg/dL (8.4-25.7); Bilirubin, Total 0.3 mg/dL (0.2-1.2); Calc. Creatinine Clearance 0 mL/min (70-130); Carbon Dioxide 24 mmol/L (22-29); Chloride 92 mmol/L (98-107); Globulin 3.3 g/dL (2.4-3.5); Glucose 212 mg/dL (70-105); Lipase 55 U/L (8-78); Potassium 4.7 mmol/L (3.5-5.1); Protein, Total 7.3 g/dL (6.0-8.3); Sodium 130 mmol/L (136-145)
[2021-04-13 13:30] LABS: Hemoglobin 14.2 g/dL (14.0-18.0); MDiff Complete? YES; Manual Diff?? YES; Mean Corpuscular HGB CONC 33.5 g/dL (32.0-36.0); Mean Corpuscular Hemoglobin 30.9 pg (27.0-31.0); Mean Corpuscular Volume 92.4 fL (78.0-98.0); Mean Platelet Volume 6.4 fL (7.4-10.4); Platelet Count 295 thou/uL (130-400); RBC Distribution Width 11.6 % (11.5-14.5); Red Blood Cell (RBC) Count 4.59 mill/uL (4.70-6.10); White Blood Cell (WBC) Count 15.1 thou/uL (4.8-10.8)
[2021-04-13 13:31] LABS: Anisocytosis SLIGHT = 6-15 cells (100X) (0-5/hpf); Band 5 % (5-11); Eosinophils 2 % (0-10); Lymphocytes 6 % (21-51); Monocytes 2 % (0-10); Neutrophil 85 % (42-75); Platelet Morphology Comment Appears Adequate
[2021-04-13 14:09] LABS: Bilirubin Negative (Negative); Blood, Urine Moderate (Negative); Clarity Slightly Cloudy (Clear); Glucose, Urine (Dipstick) 500 mg/dL (Negative); Ketone, Urine Negative (Negative); Leukocyte Small (Negative); Nitrite Positive (Negative); Protein, Urine (Dipstick) > or equal to 300 mg/dL (Neg-Trace); Specific Gravity, Urine 1.015 (1.005-1.030); Urobilinogen 0.2 mg/dL (Less than 2); pH, Urine 6.5 (5.0-9.0)
[2021-04-13] MEDS ORDERED: Cefepime 2 GM VIAL ONE (14:15)
[2021-04-13] MEDS ORDERED: Sodium Chloride 0.9% 1,000 ML ONE (14:15)
[2021-04-13 16:07] LABS: Lactic Acid 2.4 mmol/L (0.5-2.2)
[2021-04-13] MEDS ORDERED: Sodium Chloride 0.9% 2,000 ML ONE (16:34)
[2021-04-13 17:04] LABS: SARS-CoV-2 NAA Rapid Test Not Detected (NotDetected)
== END 2021-04-13 17:13 | disposition short-term general hospital (02) ==
LOC: MADERS 11:01
DX: A41.9 Sepsis, unspecified organism (principal); E87.1 Hypo-osmolality and hyponatremia; E11.9 Type 2 diabetes mellitus without complications; I11.0 Hypertensive heart disease with heart failure; I50.9 Heart failure, unspecified; E78.5 Hyperlipidemia, unspecified; J44.9 Chronic obstructive pulmonary disease, unspecified; E78.00 Pure hypercholesterolemia, unspecified; Z20.822 Contact with and (suspected) exposure to COVID-19; Z79.84 Long term (current) use of oral hypoglycemic drugs; Z79.82 Long term (current) use of aspirin; Z79.899 Other long term (current) drug therapy
CPT/HCPCS: 73030; 74018; 74176; 80053; 83605; 83690; 85025; 87040; 87077; 87086; 87186; U0002; 81003; 81015; 96365; 96367; 96375; J0692; J2405; J3370; J3490; J7050

== ENCOUNTER 2021-04-17 20:37 | Emergency (ER) | payer MEDICARE ==
[2021-04-17 21:03] LABS: #Basophils 0.1 thou/uL (0.0-0.2); #Eosinphils 0.8 thou/uL (0.0-0.7); #Lymphocytes 1.5 thou/uL (1.20-3.40); #Neutrophils 7.2 thou/uL (1.40-6.50); %Eosinophils 7.3 % (0.0-10.0); %Lymphocytes 14.2 % (21.0-51.0); %Monocytes 9.2 % (0.0-10.0); %Neutrophils 68.4 % (42.0-75.0); Hemoglobin 13.5 g/dL (14.0-18.0); Mean Corpuscular HGB CONC 34.5 g/dL (32.0-36.0); Mean Corpuscular Hemoglobin 31.1 pg (27.0-31.0); Mean Corpuscular Volume 90.3 fL (78.0-98.0); Mean Platelet Volume 6.5 fL (7.4-10.4); Platelet Count 221 thou/uL (130-400); RBC Distribution Width 11.7 % (11.5-14.5); Red Blood Cell (RBC) Count 4.34 mill/uL (4.70-6.10); White Blood Cell (WBC) Count 10.5 thou/uL (4.8-10.8)
[2021-04-17 21:20] LABS: ALT (SGPT) 29 U/L (8-55); AST (SGOT) 18 U/L (5-34); Albumin 3.9 g/dL (3.5-5.0); Alkaline Phosphatase 89 U/L (40-110); Anion Gap 15 mmol/L (10-20); BUN (Urea Nitrogen) 12 mg/dL (8.4-25.7); Bilirubin, Total 0.5 mg/dL (0.2-1.2); Calc. Creatinine Clearance 0 mL/min (70-130); Calcium 9.5 mg/dL (7.8-10.44); Carbon Dioxide 26 mmol/L (22-29); Chloride 86 mmol/L (98-107); Globulin 3.1 g/dL (2.4-3.5); Glucose 190 mg/dL (70-105); Lipase 167 U/L (8-78); Potassium 3.8 mmol/L (3.5-5.1); Sodium 123 mmol/L (136-145)
[2021-04-17 21:37] LABS: Bilirubin Negative (Negative); Blood, Urine Small (Negative); Clarity Clear (Clear); Glucose, Urine (Dipstick) 500 mg/dL (Negative); Ketone, Urine Negative (Negative); Leukocyte Negative (Negative); Nitrite Negative (Negative); Protein, Urine (Dipstick) 30 mg/dL (Neg-Trace); Urobilinogen 0.2 mg/dL (Less than 2); pH, Urine 6.5 (5.0-9.0)
[2021-04-17 21:42] LABS: Specific Gravity, Urine 1.005 (1.002-1.036)
[2021-04-17 21:43] LABS: RBC/HPF 0-3 HPF (0-3); Squamous Epithelial 0-3 HPF (0-3); WBC/HPF 0-3 HPF (0-3)
== END 2021-04-17 22:53 | disposition home or self-care (01) ==
LOC: MADERS 20:37
DX: M79.10 Myalgia, unspecified site (principal); R74.8 Abnormal levels of other serum enzymes; E11.9 Type 2 diabetes mellitus without complications; E78.5 Hyperlipidemia, unspecified; I11.0 Hypertensive heart disease with heart failure; I50.9 Heart failure, unspecified; J44.9 Chronic obstructive pulmonary disease, unspecified; Z87.891 Personal history of nicotine dependence
CPT/HCPCS: 36415; 71045; 80053; 81003; 81015; 83690; 83880; 84484; 85025; 93005

== ENCOUNTER 2021-06-15 13:42 | Outpatient (CLI) | payer OTHER ==
[2021-06-15 14:23] LABS: Blood, Urine Large (Negative); Clarity Slightly Cloudy (Clear); Glucose, Urine (Dipstick) 100 mg/dL (Negative); Ketone, Urine Trace mg/dL (Negative); Leukocyte Large (Negative); Nitrite Positive (Negative); Protein, Urine (Dipstick) > or equal to 300 mg/dL (Neg-Trace); Specific Gravity, Urine 1.015 (1.005-1.030)
[2021-06-15 14:33] LABS: RBC/HPF Greater than 50 HPF (0-3)
[2021-06-15 14:34] LABS: Bacteria/HPF 1+ HPF (None Seen); Renal Epithelial 0-3 HPF (None Seen); Squamous Epithelial None Seen HPF (0-3); WBC/HPF 0-3 HPF (0-3)
[2021-06-15 14:35] LABS: Bilirubin Unable to Interpret (Negative)
== END 2021-06-15 13:43 | disposition home or self-care (01) ==
LOC: MADLAB 13:42
PROVIDERS: ATTEND Family Medicine
DX: T83.518D Infection and inflammatory reaction due to other urinary catheter, subsequent encounter (principal); R30.9 Painful micturition, unspecified; R39.89 Other symptoms and signs involving the genitourinary system
CPT/HCPCS: 81001; 87086

== ENCOUNTER 2021-06-21 11:02 | Emergency (ER) | payer OTHER ==
[2021-06-21 11:41] LABS: #Basophils 0.1 thou/uL (0.0-0.2); #Eosinphils 0.1 thou/uL (0.0-0.7); #Lymphocytes 1.4 thou/uL (1.20-3.40); #Neutrophils 9.1 thou/uL (1.40-6.50); %Basophils 1.1 % (0.0-1.0); %Eosinophils 0.9 % (0.0-10.0); %Lymphocytes 11.9 % (21.0-51.0); %Monocytes 8.4 % (0.0-10.0); %Neutrophils 77.8 % (42.0-75.0); Hemoglobin 13.6 g/dL (14.0-18.0); Mean Corpuscular HGB CONC 33.2 g/dL (32.0-36.0); Mean Corpuscular Hemoglobin 29.6 pg (27.0-31.0); Mean Corpuscular Volume 89.2 fL (78.0-98.0); Mean Platelet Volume 6.9 fL (7.4-10.4); Platelet Count 249 thou/uL (130-400); RBC Distribution Width 11.8 % (11.5-14.5); Red Blood Cell (RBC) Count 4.58 mill/uL (4.70-6.10); White Blood Cell (WBC) Count 11.6 thou/uL (4.8-10.8)
[2021-06-21 11:58] LABS: ALT (SGPT) 46 U/L (8-55); AST (SGOT) 28 U/L (5-34); Albumin 3.8 g/dL (3.5-5.0); Alkaline Phosphatase 94 U/L (40-110); Anion Gap 12 mmol/L (10-20); BUN (Urea Nitrogen) 12 mg/dL (8.4-25.7); Bilirubin, Total 0.2 mg/dL (0.2-1.2); Calc. Creatinine Clearance 0 mL/min (70-130); Calcium 9.5 mg/dL (7.8-10.44); Carbon Dioxide 26 mmol/L (22-29); Chloride 94 mmol/L (98-107); Globulin 2.8 g/dL (2.4-3.5); Glucose 187 mg/dL (70-105); Magnesium 1.8 mg/dL (1.6-2.6); Potassium 4.4 mmol/L (3.5-5.1); Protein, Total 6.6 g/dL (6.0-8.3); Sodium 128 mmol/L (136-145)
[2021-06-21] MEDS ORDERED: Sodium Chloride 0.9% 100 ML ONE (13:00)
[2021-06-21] MEDS ORDERED: Diltiazem 125 MG/25 ML ONE (13:00)
[2021-06-21] MEDS ORDERED: Magnesium 2 GM/50 ML BAG (IN WATER) ONE (13:00)
== END 2021-06-21 14:39 | disposition short-term general hospital (02) ==
LOC: MADERS 11:02
DX: I48.92 Unspecified atrial flutter (principal); E87.1 Hypo-osmolality and hyponatremia; E87.8 Other disorders of electrolyte and fluid balance, not elsewhere classified; I11.0 Hypertensive heart disease with heart failure; I50.9 Heart failure, unspecified; E11.9 Type 2 diabetes mellitus without complications; E78.5 Hyperlipidemia, unspecified; E78.00 Pure hypercholesterolemia, unspecified; J44.9 Chronic obstructive pulmonary disease, unspecified; Z87.891 Personal history of nicotine dependence; Z87.19 Personal history of other diseases of the digestive system
CPT/HCPCS: 36415; 71045; 80053; 83735; 83880; 84443; 84484; 85025; 93005; 94760; 96365; 96375; 96376; J3475; J3490

== ENCOUNTER 2021-07-20 12:35 | Outpatient (CLI) | payer OTHER ==
[2021-07-20 12:56] LABS: #Basophils 0.1 thou/uL (0.0-0.2); #Eosinphils 0.3 thou/uL (0.0-0.7); #Lymphocytes 1.4 thou/uL (1.20-3.40); #Monocytes 0.8 thou/uL (0.11-0.59); #Neutrophils 7.1 thou/uL (1.40-6.50); %Basophils 0.6 % (0.0-1.0); %Eosinophils 2.9 % (0.0-10.0); %Lymphocytes 14.3 % (21.0-51.0); %Monocytes 7.9 % (0.0-10.0); %Neutrophils 74.2 % (42.0-75.0); Hemoglobin 12.7 g/dL (14.0-18.0); Mean Corpuscular Hemoglobin 30.2 pg (27.0-31.0); Mean Corpuscular Volume 91.5 fL (78.0-98.0); Mean Platelet Volume 6.9 fL (7.4-10.4); Platelet Count 243 thou/uL (130-400); RBC Distribution Width 12.9 % (11.5-14.5); Red Blood Cell (RBC) Count 4.19 mill/uL (4.70-6.10); White Blood Cell (WBC) Count 9.5 thou/uL (4.8-10.8)
[2021-07-20 13:03] LABS: INR-International Normal Ratio 0.9; Prothrombin Time 12.1 sec (12.0-14.7)
[2021-07-20 13:21] LABS: ALT (SGPT) 35 U/L (8-55); AST (SGOT) 30 U/L (5-34); Albumin 4.1 g/dL (3.5-5.0); Alkaline Phosphatase 82 U/L (40-110); Anion Gap 16 mmol/L (10-20); BUN (Urea Nitrogen) 15 mg/dL (8.4-25.7); Bilirubin, Total 0.4 mg/dL (0.2-1.2); Calc. Creatinine Clearance 0 mL/min (70-130); Calcium 10.1 mg/dL (7.8-10.44); Carbon Dioxide 27 mmol/L (22-29); Cardiac Risk 2.5 (Less than 4.5); Chloride 91 mmol/L (98-107); Cholesterol 184 mg/dl (< 200 Desired); Globulin 2.7 g/dL (2.4-3.5); Glucose 163 mg/dL (70-105); HDL Cholesterol 75 mg/dL (>60 Neg Risk); LDL Cholesterol, Calculated 59 mg/dL; Potassium 4.5 mmol/L (3.5-5.1); Protein, Total 6.8 g/dL (6.0-8.3); Sodium 129 mmol/L (136-145); Triglycerides 251 mg/dL (Less than 150)
[2021-07-20 14:06] LABS: Thyroid Stimulating Hormone 2.8847 uIU/mL (0.35-4.94)
[2021-07-20 16:05] LABS: Hemoglobin A1c 7.6 % (4.0-6.0)
[2021-07-20 16:26] LABS: Free T4 (Free Thyroxine) 1.2 ng/dL (0.70-1.48)
== END 2021-07-20 12:36 | disposition home or self-care (01) ==
LOC: MADLAB 12:35
PROVIDERS: ATTEND Family Medicine
DX: I13.0 Hypertensive heart and chronic kidney disease with heart failure and stage 1 through stage 4 chronic kidney disease, or unspecified chronic kidney disease (principal); E11.22 Type 2 diabetes mellitus with diabetic chronic kidney disease; I50.32 Chronic diastolic (congestive) heart failure; N18.9 Chronic kidney disease, unspecified; I48.91 Unspecified atrial fibrillation; I25.10 Atherosclerotic heart disease of native coronary artery without angina pectoris; E87.1 Hypo-osmolality and hyponatremia
CPT/HCPCS: 80053; 80061; 83036; 84439; 84443; 85025; 85610

== ENCOUNTER 2022-03-19 10:42 | Outpatient (CLI) | payer OTHER | END 2022-03-19 10:43 | disposition home or self-care (01) | LOC: MADRAD 10:42 | PROVIDERS: ATTEND Family Medicine | DX: R06.00 Dyspnea, unspecified (principal) | CPT/HCPCS: 71046 ==

== ENCOUNTER 2024-02-27 04:08 | Emergency (ER) | payer MEDICARE, OTHER | END 2024-02-27 06:00 | disposition home or self-care (01) | LOC: MADERS 04:08 | DX: S20.20XA Contusion of thorax, unspecified, initial encounter (principal); W19.XXXA Unspecified fall, initial encounter | CPT/HCPCS: 71111 ==

== ENCOUNTER 2024-03-05 11:34 | Emergency (ER) | payer MEDICARE, OTHER ==
[2024-03-05] MEDS ORDERED: Furosemide 40 MG (4 mL) VIAL ONE (12:40)
[2024-03-05] MEDS ORDERED: diphenhydrAMINE 50 MG/ML VIAL ONE (12:40)
[2024-03-05] MEDS ORDERED: Vancomycin 1 GM VIAL ONE (12:41)
[2024-03-05] MEDS ORDERED: cefTRIAXone (ROCEPHIN) 1 GM VIAL ONE (12:41)
[2024-03-05] MEDS ORDERED: Metoprolol Tartrate 5 MG (5 mL) VIAL ONE (14:21)
[2024-03-05 14:56] LABS: #Basophils 0.1 thou/uL (0.0-0.2); #Eosinphils 0.9 thou/uL (0.0-0.7); #Lymphocytes 0.8 thou/uL (1.20-3.40); #Neutrophils 7.4 thou/uL (1.40-6.50); %Basophils 1.3 % (0.0-1.0); %Eosinophils 9.1 % (0.0-10.0); %Lymphocytes 7.5 % (21.0-51.0); %Neutrophils 72.1 % (42.0-75.0); Hematocrit 36.9 % (42.0-52.0); Hemoglobin 11.7 g/dL (14.0-18.0); Mean Corpuscular HGB CONC 31.7 g/dL (32.0-36.0); Mean Corpuscular Hemoglobin 29.5 pg (27.0-31.0); Mean Platelet Volume 7.7 fL (7.4-10.4); Platelet Count 202 10x3/uL (130-400); RBC Distribution Width 13.8 % (11.5-14.5); Red Blood Cell (RBC) Count 3.97 mill/uL (4.70-6.10); White Blood Cell (WBC) Count 10.2 10x3/uL (4.8-10.8)
[2024-03-05] MEDS ORDERED: dilTIAZem 25 MG/5 ML VIAL ONE (14:57)
[2024-03-05] MEDS ORDERED: Metoprolol Tartrate 50 MG TAB ONE (15:09)
[2024-03-05 15:10] LABS: Magnesium 2.1 mg/dL (1.6-2.6)
[2024-03-05 15:13] LABS: Troponin I Less than 0.010 ng/mL (< 0.028)
== END 2024-03-05 19:30 | disposition short-term general hospital (02) ==
LOC: MADERS 11:34
DX: L03.115 Cellulitis of right lower limb (principal); L03.116 Cellulitis of left lower limb; R26.89 Other abnormalities of gait and mobility; N39.0 Urinary tract infection, site not specified; G89.29 Other chronic pain; I89.0 Lymphedema, not elsewhere classified; E11.9 Type 2 diabetes mellitus without complications; I11.0 Hypertensive heart disease with heart failure; I50.9 Heart failure, unspecified; E78.5 Hyperlipidemia, unspecified; Z87.891 Personal history of nicotine dependence; Z79.899 Other long term (current) drug therapy
CPT/HCPCS: 83735; 83880; 84484; 93005; 96365; 96366; 96367; 96375; J0696; J1200; J1940; J3370

== ENCOUNTER 2025-05-17 07:17 | Emergency (ER) | payer MEDICARE, OTHER ==
[2025-05-17 08:22] LABS: Cocaine Metabolite Screen Negative (Negative); THC/Cannabinoid Screen Negative (Negative); Tricyclic Screen Negative (Negative)
[2025-05-17 08:28] LABS: Glucose, Urine (Dipstick) Negative (Negative); Leukocyte Small (Negative); Protein, Urine (Dipstick) 30 mg/dL (Neg-Trace); Specific Gravity, Urine 1.015 (1.005-1.030)
[2025-05-17 08:32] LABS: Bacteria/HPF 2+ HPF (None Seen); CAUTI Indications for Culture Dysuria,urgency,freq
[2025-05-17 08:34] LABS: Urine Culture Reflex No No
[2025-05-17 08:55] LABS: #Basophils 0.3 thou/uL (0.0-0.2); #Eosinophils 1.7 thou/uL (0.0-0.7); #Lymphocytes 0.6 thou/uL (1.20-3.40); #Monocytes 1.1 thou/uL (0.11-0.59); #Neutrophils 7.3 thou/uL (1.40-6.50); %Basophils 2.4 % (0.0-1.0); %Eosinophils 15.3 % (0.0-10.0); %Lymphocytes 5.6 % (21.0-51.0); %Monocytes 9.8 % (0.0-10.0); %Neutrophils 66.9 % (42.0-75.0); Hematocrit 33.6 % (42.0-52.0); Hemoglobin 10.6 g/dL (14.0-18.0); Mean Corpuscular Hemoglobin 30.8 pg (27.0-31.0); Mean Corpuscular Volume 97.9 fl (78.0-98.0); Platelet Count 205 10x3/uL (130-400); Red Blood Cell (RBC) Count 3.43 mill/uL (4.70-6.10); White Blood Cell (WBC) Count 10.9 10x3/uL (4.8-10.8)
[2025-05-17] MEDS ORDERED: Cefepime 2 GM VIAL ONE ×2 (08:55→18:59)
[2025-05-17] MEDS ORDERED: Sodium Chloride 0.9% 250 ML 500 ML ONE (08:56)
[2025-05-17 09:13] LABS: INR-International Normal Ratio 1.4; Prothrombin Time 17.0 sec (12.0-14.7)
[2025-05-17 09:14] LABS: ALT (SGPT) 15 U/L (Less than 45); AST (SGOT) 18 U/L (11-34); Albumin 3.1 g/dL (3.1-4.5); Alkaline Phosphatase 88 U/L (40-110); Anion Gap 17 mmol/L (10-20); BUN (Urea Nitrogen) 23 mg/dL (8.4-25.7); Bilirubin, Total 0.5 mg/dL (0.3-1.2); Calc. Creatinine Clearance 0 mL/min (70-130); Calcium 8.4 mg/dL (7.8-10.44); Carbon Dioxide 26 mmol/L (23-31); Chloride 91 mmol/L (98-107); Globulin 3.7 g/dL (2.4-3.5); Glucose 97 mg/dL (80-115); PTT 43.3 sec (22.9-36.1); Potassium 4.6 mmol/L (3.5-5.1); Sodium 129 mmol/L (136-145)
[2025-05-17 09:21] LABS: Troponin I Less than 0.010 ng/mL (< 0.028)
[2025-05-17] MEDS ORDERED: Furosemide 40 MG (4 mL) VIAL ONE (13:05)
[2025-05-17] MEDS ORDERED: Apixaban 5 MG TAB PO SCH (21:00)
[2025-05-17] MEDS ORDERED: glipiZIDE 5 MG TAB PO SCH (21:00)
[2025-05-17] MEDS ORDERED: Divalproex Sodium 250 MG ER.TAB ONE (21:14)
[2025-05-18] MEDS ORDERED: Allopurinol 100 MG TAB PO SCH (09:00)
[2025-05-18] MEDS ORDERED: Vancomycin HCl 750 MG in Sodium Chloride 0.9% 250 ML 250 ML IVPB SCH (09:00)
[2025-05-18] MEDS ORDERED: Lisinopril 10 MG TAB PO SCH (09:00)
[2025-05-18] MEDS ORDERED: Furosemide 40 MG TAB PO SCH (09:00)
[2025-05-18] MEDS ORDERED: Divalproex Sodium 250 MG ER.TAB PO SCH (21:00)
== END 2025-05-18 04:03 | disposition short-term general hospital (02) ==
LOC: MADERS 07:17
DX: L03.115 Cellulitis of right lower limb (principal); L03.116 Cellulitis of left lower limb; I11.0 Hypertensive heart disease with heart failure; I50.9 Heart failure, unspecified; N17.9 Acute kidney failure, unspecified; R82.71 Bacteriuria; L20.9 Atopic dermatitis, unspecified; D64.9 Anemia, unspecified; I87.8 Other specified disorders of veins; J44.9 Chronic obstructive pulmonary disease, unspecified; E66.9 Obesity, unspecified; E78.5 Hyperlipidemia, unspecified; Z79.899 Other long term (current) drug therapy; Z79.01 Long term (current) use of anticoagulants; Z79.51 Long term (current) use of inhaled steroids; Z79.84 Long term (current) use of oral hypoglycemic drugs; Z87.891 Personal history of nicotine dependence; Z46.6 Encounter for fitting and adjustment of urinary device
CPT/HCPCS: 80053; 80306; 81001; 83605; 83880; 84484; 85025; 85610; 85730; 86140; 87040; 87077; 93005; 96365; 96366; 96367; 96375; J0692; J1940; J2919; J3010; J3373; J7030; J7050